=== PATIENT | female | born 1960 | race Hispanic/Latino ===

== ENCOUNTER 2021-01-21 07:26 | Day surgery (SDC) | payer OTHER ==
[2021-01-21] MEDS ORDERED: NA CHLORIDE 0.9% 1,000 ML ONE (08:01)
[2021-01-21 08:39] VITALS: BP 130/68; TEMP 97.1; O2SAT 100; BMI 25.6
== END 2021-01-21 12:15 | disposition home or self-care (01) ==
LOC: DS 07:26
PROVIDERS: ATTEND Family Medicine
DX: N17.9 Acute kidney failure, unspecified (principal)
CPT/HCPCS: 96365; 96366; J7030

== ENCOUNTER 2022-06-20 11:49 | Emergency (ER) | payer BC ==
[2022-06-20] MEDS ORDERED: ETOMIDATE 20 MG/10 ML VIAL IV ONE (11:50)
[2022-06-20] MEDS ORDERED: ROCURONIUM 50 MG/5 ML VIAL IV ONE (11:50)
--- OUTSIDE RECORDS SUMMARY | 2022-06-20 11:59 | XMS REPORT | Continuity of Care Document ---
:1960 Author Organization [facility] t Address [address] [place] [address] Care Team Providers Name Role Phone Greyson Mccormick MD Primary Care Physician [id number] Attending Clinician Unavailable TERRANCE DONOVAN Attending Clinician Unavailable Lynn Cash Attending Clinician Unavailable JORGE CHOWDHURY Attending Clinician Unavailable HERNANDO GONZALEZ Attending Clinician Unavailable DERRICK PEARL Attending Clinician Unavailable MD LOUISE GONGORA Attending Clinician Unavailable WEN MOREL Attending Clinician Unavailable MODESTA STERN Attending Clinician Unavailable MAR ALEMAN Attending Clinician Unavailable LUIS ALFREDO PATEL Attending Clinician Unavailable MD DULCE ROLDAN Attending Clinician Unavailable LUIS WEBSTER Attending Clinician Unavailable JACINTO PATEL Attending Clinician Unavailable Garfield Marquez RN Attending Clinician Unavailable Kandace Mccauley MD Attending Clinician Sherly NELSON, Nae Attending Clinician Unavailable Michelle NELSON, Kerry Attending Clinician Unavailable Lor Bailon Attending Clinician Unavailable Tosin Love RN Attending Clinician Unavailable Kathrine Potter Attending Clinician Unavailable MD LUIS ALFREDO PATEL Attending Clinician Unavailable MD MARIBEL SAGASTUME Attending Clinician Unavailable Maribel Sagastume MD Attending Clinician Nuha VENEGAS, Kaela Merritt Attending Clinician UnavailEzequiel Kiran DO Attending Clinician Rosario Macias MA Attending Clinician Unavailable Liya Gabriel MA Attending Clinician Unavailable Terrance Donovan MD Attending Clinician Only, Adc Test Attending Clinician Unavailable Doctor Unassigned, [place] Attending Clinician Unavailable David BRASWELL, Provider Not In Attending Clinician Unavailable MD DULCE ROLDAN Attending Clinician Unavailable Gary Baron MD Attending Clinician Hernan NELSON, Kayleigh Attending Clinician Unavailable Pob, Adc Lab Main Attending Clinician Unavailable Rayna Beaulieu Attending Clinician Unavailable Naldo Randolph RPH Attending Clinician Unavailable Snehal Brower Attending Clinician Unavailable Hilda Mcmillan Attending Clinician Unavailable Cash RP, Tuyet Attending Clinician Unavailable Praveen STARKS, Aileen Dooley Attending Clinician Unavailable Yariel NELSON, Theresa Attending Clinician Unavailable Missy Vann Attending Clinician Unavailable Tanya Aguilar MD Attending Clinician Barbi Glass RN Attending Clinician Unavailable Lenoela Marte MA Attending Clinician Unavailable Addison Real MD Attending Clinician [phone] Serena Martinez MA Attending Clinician Unavailable Paula Mccarty MD Attending Clinician HANNAH PARMAR Attending Clinician Unavailable MD JORGE CHOWDHURY Attending Clinician Unavailable YADIRA CHANEL Attending Clinician Unavailable Therapist, Adc Pulmonary Attending Clinician Unavailable [id number] Admitting Clinician Unavailable TERRANCE DONOVAN Admitting Clinician Unavailable LOUISE GONGORA Admitting Clinician Unavailable LUIS ALFREDO PATEL Admitting Clinician Unavailable MD DULCE ROLDAN Admitting Clinician Unavailable JACINTO PATEL Admitting Clinician Unavailable MD LUIS ALFREDO PATEL Admitting Clinician Unavailable MD MARIBEL SAGASTUME Admitting Clinician Unavailable MARIBEL SAGASTUME Admitting Clinician Unavailable Terrance Donovan MD Admitting Clinician MD DULCE ROLDAN Admitting Clinician Unavailable HANNAH PARMAR Admitting Clinician Unavailable JORGE CHOWDHURY Admitting Clinician Unavailable Payers Payer Name Policy Type Policy Number Effective Date Expiration Date S sara FORMERLY [facility] [id number] BLUE ESSENTIALS O [id number] 2020 00:00:00 [employer]ETNA TRS CARE [id number] 2014 00:00:00 Problems Condition Condition Condition Status Onset Resolution Last Treating Co mments Source Name Details Category Date Date Treatment Clinician Date Acute Acute Disease Active Methodi pancreatit pancreatit 05-23 is is 00:00: Hospita 00 l Acute Acute Disease Active Methodi hyponatrem hyponatrem 05-11 ia ia 00:00: Hospita 00 l Hypogammag Hypogammag Disease Active 2020-05 M ethodi lobulinemi lobulinemi 005 st a a 00:00: Hospita 00 l COVID-19 COVID-19 Disease Active Metho di 8 st 00:00: Hospita 00 l CAITLIN CAITLIN Disease Active Methodi (obstructi (obstructi 06-26 st ve sleep ve sleep 00:00: Hospit a apnea) apnea) 00 l SOB SOB Disease Active Methodi (shortness (shortness 2-10 st of breath) of breath) 00:00: Ho spita on on 00 l exertion exertion COVID-19 COVID-19 Disease Active Metho di virus virus 2 st infection infection 00:00: Hosp krystian 00 l 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): ovirus): 00:00: Hospit a D+ / R+ D+ / R+ 00 l EBV EBV Disease Recurre 2018-05 Methodi seropositi seropositi nce 06-07 vity: vity: 00:00: Hospita D+/R+ D+/R+ 00 l Therapeuti Therapeuti Disease Recurre 2018-05 Methodi c drug c drug nce 2 st monitoring monitoring 00:00: Ho spita 00 l Thrombocyt Thrombocyt Disease Active 2018-05 M ethodi openia due openia due 17 st to blood to blood 00:00: Hospit a loss loss 00 l Steroid-in Steroid-in Disease Active 2018-05 M ethodi duced duced 1-17 st hyperglyce hyperglyce 00:00: Ho christianta dez dez 00 l Vitamin D Vitamin D Disease Active 2018-05 Met hodi deficiency deficiency 17 st 00:00: Hospita 00 l Bilateral Bilateral Disease Recurre 2018-05 Me thodi Lung Lung nce 1-16 st Transplant Transplant 00:00: Ho spita 03/17/2019 03/17/2019 00 l for IPF for IPF Hepatic Hepatic Disease Active 2018-05 Methodi insufficie insufficie -16 st ncy ncy 00:00: Hospita 00 l IPF IPF Disease Active Univers (idiopathi (idiopathi 6-13 it y of c c 00:00: [place] pulmonary pulmonary 00 Medi fuentes fibrosis) fibrosis) Bran ch HLD HLD Disease Active Univers (hyperlipi (hyperlipi 6-13 it y of demia) demia) 00:00: [place] 00 Medical Branch Hypoxemia Hypoxemia Disease Active Uni vers 6-13 ity of 00:00: [place] 00 Medical Branch GERD GERD Disease Active Univers (gastroeso (gastroeso 6-13 it y of phageal phageal 00:00: [place] reflux reflux 00 Medical disease) disease) Branch Chronic Chronic Disease Active Univers respirator respirator 6-13 it y of y failure y failure 00:[place] with 00 Medical hypoxia hypoxia Branch Depression Depression Disease Active M ethodi 6-13 st 00:00: Hospita 00 l Chronic Chronic Disease Recurre Method i respirator respirator nce 2-20 st y failure y failure 00:00: Hosp krystian with with 00 l hypoxia hypoxia 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 2-20 st sis sis 00:00: Hospita 00 l MDD (major MDD (major Disease Active 2017-05 M ethodi depressive depressive [address] st disorder), disorder), 00:00: Ho sheila single single 00 l episode, episode, in full in full remission remission GERD GERD Disease Active 2017-05 Methodi (gastroeso (gastroeso 0-15 st phageal phageal 00:00: Hospita reflux reflux 00 l disease) disease) SOB SOB Disease Active 2017-05 Methodi (shortness (shortness 0-15 st of breath) of breath) 00:00: Ho spita 00 l Mixed Mixed Disease Active 2017-05 Methodi hyperlipid hyperlipid 0-15 st emia emia 00:00: Hospita 00 l 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 00:00: Hospit a 00 l Allergies, Adverse Reactions, Alerts Allergy Allergy Status Severity Reaction(s) Onset Inactive Treating Comm ents Source Name Type Date Date Clinician Penicill DA [facility] 00 Sulfa DA Active U Redness of 2021-05 [facility] (Sulfona Skin 2-20 mide 00:00: Antibiot 00 ics) voricona DA Active U Unknown 2021-05 [facility] zole 220 00:00: 00 SULFA Drug Active Med Rash 2020-0 Univers (SULFONA Class 3-13 ity of MIDE 00:00: [place] ANTIBIOT 00 Medical ICS) Branch Sulfa Drug Active Rash 2020-0 Univers (Sulfona Allergy 3-13 ity of mide 00:00: [place] Antibiot 00 Medical ics) Branch Voricona Propensi Active Other (See 2018-05 Elevated Methodi zole ty to Comments) 0-[address] adverse 00:00: Enzymes Hospita reaction 00 l s to drug PENICILL DRUG Active Med Hives 2018- Univers IN INGREDI 6-13 ity of 00:00: [place] 00 Medical Branch Penicill Propensi Active Hives Univer s in ty to 6-13 ity of adverse 00:00: [place] reaction 00 Medical s Branch Penicill Propensi Active Hives "Long Method i ins ty to 01-25 time ago" st adverse 00:00: per Hospita reaction 00 l s : drug Patient described reaction as "rash all over" Sulfa Propensi Active Hives 02/27/19: Metho di (Sulfona ty to 01-[address] mide adverse 00:00: described Hospit a Antibiot reaction 00 reaction l ics) s to as "rash drug all over" Family History Family Member Diagnosis Comments Start Date Stop Date Source Natural father Cerebral aneurysm Met [facility] Maternal aunt Breast cancer [facility] Maternal aunt Lung cancer [facility] Natural mother Diabetes [facility] Natural mother Lung disease [facility] Natural sister Pancreatic cancer Met [facility] Social History Social Habit Start Date Stop Date Quantity Comments Source Exposure to Not sure University of SARS-CoV-2 [place] [facility] (event) Branch History SDOH Yarsanism Alcohol Std Hospital Drinks History SDOH Yarsanism Alcohol Binge Hospital History SDTX Yarsanism Alcohol Comment Hospital Alcohol intake 2021-05-28 2021-05-28 Current Yarsanism 00:00:00 00:00:00 non-drinker of Hospital alcohol (finding) History SDOH 2020-06-07 2020-06-07 1 Yarsanism Alcohol Frequency 00:00:00 00:00:00 Hospita l Tobacco use and 2018-01-25 2018-01-25 Smokeless tobacco Me thodist exposure 00:00:00 00:00:00 non-user Hospital Sex Assigned At [birth year] [facility] Fatoumata gresham 00:00:00 [facility]:00 [facility] Smoking Status Start Date Stop Date Source Never smoked tobacco Yarsanism H ospital Medications Ordered Filled Start Stop Current Ordering Indication Dosage Frequency Signature Comments Components Source Medication Medication Date Date Medication? Clinician (SIG) Name Name mycophenola 2022- No [id number] 180mg Q.5D Take 1 Methodi te 06-[address] (MYFORTIC) 00:00: 05:59 (180 mg [facility] [place] 180 MG EC 00 :00 total) by l tablet mouth 2 (two) times a day. tacrolimus 2022- No [id number] .5mg Q.5D Take 1 Methodi (PROGRAF) 06-[address] 0.5 MG 00:00: 05:59 (0.5 mg Hospita capsule 00 :00 total) by l mouth 2 (two) times a day. aspirin Yes 81mg QD Take 81 mg [facility] (ECOTRIN) 1-[address] 81 MG 17:31: daily. Hospita enteric 22 l coated tablet calcium Yes 1{tbl} Q.5D Take 1 Method i citrate-vit 1-[address] zabala D3 17:31: mouth 2 Hospita (CITRICAL+D 22 (two) l ) 315 times a mg-6.25 mcg day. (250 unit) per tablet cholecalcif 0 Yes 1{tbl} QD Take 1 Me thodi yvrose, 1-[address] vitamin D3, 17:31: mouth Hospi ta (Vitamin 22 daily. l D3) 125 mcg (5,000 unit) tablet magnesium Yes 2{tbl} Q.[id number] Take 2 Methodi chloride -[id number] 71.5 mg 17:31: 3D mouth 3 Hospita tablet,binu 22 (three) l yed release times a (DR/EC) day. ondansetron Yes 4mg Q8H Take 4 mg M ethodi ODT 1-[address] (ZOFRAN-ODT 17:31: every 8 [facility] [place] ) 4 MG 22 (eight) l disintegrat hours as ing tablet needed for nausea or vomiting. ipratropium Yes 500ug Q.5D Inhale 500 Methodi (ATROVENT) 1-[address] 0.02 % 17:31: (two) Hospita nebulizer 22 times a l solution day as needed. predniSONE 0 2021- No 10mg QD Take 1 [facility] (DELTASONE) 05-30-31 tablet (10 s t 10 mg 00:00: 04:59 mg total) Hospit a tablet 00 :00 by mouth l daily for 60 days. potassium 0 2021- No 20meq QD Take 2 [facility] chloride 05-29- capsules st (MICRO-K) 00:00: 05:59 (20 mEq Hosp k[facility] 10 MEQ CR 00 :00 total) by l capsule mouth daily for 30 days. HYDROcodone 2021-0 2021- [place] [id number] 1{tbl} Q6H Take 1 Methodi -acetaminop 05-[address] hen ([place]) 00:00: 05:59 mouth Hosp krystian 5-325 mg 00 :00 every 6 l per tablet (six) hours as needed for moderate pain for up to 10 days .acute pain. Max Daily Amount: 4 tablets tacrolimus 2021- No [id number] .5mg QD Take 1 Methodi (PROGRAF) 05-[address] 0.5 MG 00:00: 00:00 (0.5 mg Hospita capsule 00 :00 total) by l mouth daily. mycophenola 2021- No [id number] 180mg Q.5D Take 1 Methodi te 05-[address] (MYFORTIC) 00:00: 00:00 (180 mg [facility] [place] 180 MG EC 00 :00 total) by l tablet mouth 2 (two) times a day. hydrocortis 2021- No 20mg QD Take 1 Met hodi one 05-16 tablet (20 st (CORTEF) 20 00:00: 00:00 mg total) Hospita MG tablet 00 :00 by mouth l daily for 30 days. atovaquone 2022- No 1500mg QD Take 10 mL Methodi (MEPRON) 05-15 (1,[address] 750 mg/5 mL 00:00: 05:59 total) by Hospita suspension 00 :00 mouth l nightly. bisacodyL 2021- No 10mg Q24H Insert 1 Met hodi (DULCOLAX) 05-[address] 10 mg 00:00: 05:59 y (10 mg Hospita suppository 00 :00 total) l into the rectum daily as needed for constipati on for up to 30 days. polyethylen 2021- No 17g QD Take 17 g Methodi e glycol 05-[address] (MIRALAX) 00:00: 05:59 daily for Ho spita 17 gram 00 :00 30 days. l packet sennosides- 2021- No 1{tbl} Q.5D Take 1 M ethodi docusate 05-[address] sodium 00:00: 05:59 mouth 2 Hospita (SENOKOT-S) 00 :00 (two) l 8.6-50 mg times a per tablet day for 30 days. sodium 2021- No 1300mg Q.5D Take 2 Method i bicarbonate 1-14 02-[address] 650 mg 00:00: 05:59 (1,300 mg Hospi ta tablet 00 :00 total) by l mouth 2 (two) times a day for 30 days. hydrocortis No 10mg QD Take 1 Met hodi one 05-15 tablet (10 st (CORTEF) 10 00:00: 00:00 mg total) Hospita MG tablet 00 :00 by mouth l nightly for 30 days. metoclopram No 5mg Q.5D Take 1 Met hodi mahin 05-15 tablet (5 st (Reglan) 5 00:00: 00:00 mg total) H ospita MG tablet 00 :00 by mouth 2 l (two) times a day before meals. tacrolimus No [id number] .5mg Q.5D Take 1 Methodi (PROGRAF) 05-[address] 0.5 MG 00:00: 00:00 (0.5 mg Hospita capsule 00 :00 total) by l mouth 2 (two) times a day. tacrolimus No [id number] .5mg QD Take 1 Methodi (PROGRAF) 05-[address] 0.5 MG 00:00: 00:00 (0.5 mg Hospita capsule 00 :00 total) by l mouth daily for 30 days. doxycycline 2020-05- No [id number] 100mg Q.5D Take 1 Methodi (MONODOX) 06-[address] 100 MG 00:00: 00:00 (100 mg Hospita capsule 00 :00 total) by l mouth 2 (two) times a day for 14 days. multivitami 2020-05- No 1{tbl} QD Take 1 M ethodi n with 06-[address] minerals 09:18: 00:00 mouth Hospita tablet 58 :00 daily. l gabapentin 2020-05- No 200mg Q.[id number] Take 200 Methodi (NEURONTIN) 06-[id number] 100 mg 09:18: 00:00 3D mouth 3 Hospita capsule 51 :00 (three) l times a day. multivitami 2020-05 Yes TAKE 1 [facility] n with 06-[address] minerals 00:00: MOUTH ONCE [facility] [place] tablet 00 DAILY l gabapentin 2020-05- No TAKE 2 [facility] (NEURONTIN) 06-07 12-[address] 100 mg 00:00: 00:00 BY MOUTH Hospit a capsule 00 :00 THREE l TIMES DAILY prednisoLON 2020-05 No Metho di E acetate 05-08 st (PRED 00:00: 00:00 Hospita FORTE) 1 % 00 :00 l ophthalmic suspension tacrolimus 2020-05- No [id number] Take 1 mg Methodi (Prograf) 05-[address] 0.5 MG 00:00: 00:00 morning Hospita capsule 00 :00 every l Tuesday, Tuesday, and Tuesday AND 0.5 mg in the morning every Tuesday, , Tuesday, and Tuesday. AND take 0.5 mg every evening azithromyci 2020-05 No 250mg Q.[id number] Take 250 Methodi n 05-[id number] (ZITHROMAX) 12:45: 00:00 3W mouth 3 Ho spita 250 MG 15 :00 (three) l tablet times a week. On Tuesday, Tuesday and Tuesday azithromyci 2020-05- No TAKE 1 Met hodi n 05-[address] (ZITHROMAX) 00:00: 00:00 MOUTH 3 Ho spita 250 MG 00 :00 TIMES A l tablet WEEK famotidine 2020-05- No 20mg Q.5D Take 20 mg Methodi (PEPCID) 20 0-28 28 by mouth 2 s t MG tablet 11:47: 00:00 (two) Hospit a 30 :00 times a l day. rosuvastati 2020-05- No 10mg QD Take 10 mg Methodi n (CRESTOR) 0-28 10-[address] 10 mg 11:47: 00:00 nightly. Hospita tablet 30 :00 l famotidine 2020-05 Yes TAKE 1 Metho di (PEPCID) 20 0-[address] MG tablet 00:00: MOUTH Hospita 00 TWICE l DAILY rosuvastati 2020-05- No Take 1 Met hodi n (CRESTOR) 0-28 01-14 tablet (10 s t 10 mg 00:00: 00:00 mg total) Hospit a tablet 00 :00 by mouth l nightly. sodium 2020-05 Yes CONTINUOUS Unive rs chloride 0-20 PRN, ity of (NS) 14:48: Starting [place] injection 00 on [facility] 02/18/21 Branch at 0948, Until Discontinu ed, Routine, Intra-op neomycin-po 2020-05 Yes PRN, Univer s lymyxin-dex 0-20 Starting ity of amethasone 14:48: on Tue [place] (MAXITROL) 00 02/18/21 Medic al 3.5 at 0948, Branch mg/g-10,000 Until unit/g-0.1 Discontinu % ed, ophthalmic Routine, ointment Intra-op dexamethaso 2020-05 Yes PRN, Univer s ne 0-20 Starting ity of (DECADRON 14:48: on Tue [place] PHOSPHATE) 00 02/18/21 Medic al injection at 0948, Branch Until Discontinu ed, Routine, Intra-op ceFAZolin 2020-05 Yes CONTINUOUS Un danilela (ANCEF) 0-20 PRN, ity of injection 14:48: [place] [facility] 02/18/21 Branch at 0948, Until Discontinu ed, SE, Intra-op sodium 2020-05- No CONTINUOUS Univ ers chloride 0-20 10-20 PRN, ity of (NS) 14:48: 17:24 Starting [place] injection 00 :33 on [facility] 02/18/21 Branch at 0948, Until Tue02/18/21 at 1224, Routine, Intra-op neomycin-po 2020-05- No PRN, Unive rs lymyxin-dex 0-20 10-20 Starting ity of amethasone 14:48: 17:24 on Tue [place] (MAXITROL) 00 :33 02/18/21 Medic al 3.5 at 0948, Branch mg/g-10,000 Until Tue unit/g-0.1 02/18/21 % at 1224, ophthalmic Routine, ointment Intra-op dexamethaso 2020-05- No PRN, Unive rs ne 0-20 10-20 Starting ity of (DECADRON 14:48: 17:24 on Tue [place] PHOSPHATE) 00 :33 02/18/21 Medic al injection at 0948, Branch Until Tue02/18/21 at 1224, Routine, Intra-op ceFAZolin 2020-05- No CONTINUOUS U nivers (ANCEF) 0-20 10-20 PRN, ity of injection 14:48: 17:24 Starting [place] as 00 :33 on [facility] Medical 02/18/21 Branch at 0948, Until Tue02/18/21 at 1224, SE, Intra-op eye block 2020-05 Yes PRN, Univers syringe 11 0-20 Starting ity o f mL 14:44: on Tue [place] 00 02/18/21 Medical at 0944, Branch Until Discontinu ed, Intra-op eye block 2020-05- No PRN, Univers syringe 11 0-20 10-20 Starting ity of mL 14:44: 17:24 on Wed [place] 00 :33 02/18/21 Medical at 0944, Branch Until Tue02/18/21 at 1224, Intra-op DUOVISC 2020-05 Yes PRN, Univers (DUOVISC 0-20 Starting ity of VISCO 14:42: on Tue [place] ELASTIC) 3 00 02/18/21 Medic al %-4 %(0.5 at 0942, Branch mL) 1 % Until (0.55 mL) Discontinu intraocular ed, injection Routine, Intra-op DUOVISC 2020-05- No PRN, Univers (DUOVISC 0-20 10-20 Starting ity of VISCO 14:42: 17:24 on Tue [place] ELASTIC) 3 00 :33 02/18/21 Medic al %-4 %(0.5 at 0942, Branch mL) 1 % Until Tue (0.55 mL) 02/18/21 intraocular at 1224, injection Routine, Intra-op carbachoL 2020-05 Yes PRN, Univers (MIOSTAT) 0-20 Starting ity of 0.01 % 14:41: on Wed [place] intraocular 00 02/18/21 Medi fuentes injection at 0941, Branch Until Discontinu ed, Routine, Intra-op carbachoL 2020-05- No PRN, Univers (MIOSTAT) 0-20 10-20 Starting ity o f 0.01 % 14:41: 17:24 on Tue [place] intraocular 00 :33 02/18/21 Medi fuentes injection at 0941, Branch Until Tue02/18/21 at 1224, Routine, Intra-op EPINEPHrine 2020-05 Yes CONTINUOUS Univers 1:1,000 (1 0-20 PRN, ity of mg/mL) 14:36: Starting (ADRENALIN) 00 on Tue Medica l injection 02/18/21 Branch at 0936, Until Discontinu ed, Routine, Intra-op balanced 2020-05 Yes PRN, Univers salt irrig 0-20 Starting ity o f soln comb1 14:36: on Tue [place] (BSS PLUS) 00 02/18/21 Medic al ophthalmic at 0936, Branc h solution Until 500 mL bag Discontinu ed, Routine, Intra-op EPINEPHrine 2020-05- No CONTINUOUS Univers 1:1,000 (1 0-20 10-20 PRN, ity of mg/mL) 14:36: 17:24 Starting [place] (ADRENALIN) 00 :33 on Tue Medica l injection 02/18/21 Branch at 0936, Until Tue02/18/21 at 1224, Routine, Intra-op balanced 2020-05- No PRN, Univers salt irrig 0-20 10-20 Starting ity of soln comb1 14:36: 17:24 on Tue [place] (BSS PLUS) 00 :33 02/18/21 Medic al ophthalmic at 0936, Branc h solution Until Wed 500 mL bag 02/18/21 at 1224, Routine, Intra-op water for 2020-05 Yes PRN, Univers irrigation 0-20 Starting ity o f irrigation 14:32: on Tue [place] solution 00 02/18/21 Medical at 0932, Branch Until Discontinu ed, Routine, Intra-op water for 2020-05- No PRN, Univers irrigation 0-20 10-20 Starting ity of irrigation 14:32: 17:24 on Tue [place] solution 00 :33 20 Medical at 0932, Branch Until Tue02/18/21 at 1224, Routine, Intra-op Hyaluronida 2020-05 Yes PRN, Univer s se, Human 0-20 Starting ity of Recomb. 14:29: on Wed [place] (HYLENEX) 00 02/18/21 Medica l injection at 0929, Branch Until Discontinu ed, Routine, Intra-op Hyaluronida 2020-05- No [facility] 0-20 10-20 Starting ity o f Recomb. 14:29: 17:24 on Tue (HYLENEX) 00 :33 02/18/21 Medica l injection at 0929, Branch Until Tue02/18/21 at 1224, Routine, Intra-op mydriatic 2020-05- No .5mL 0.5 mL, Univ ers #5 0-20 10-20 Right Eye, ity of ophthalmic 12:30: 12:47 ONCE, 1 [place] solution 00 :00 dose, On Medical 0.5 mL Wed Branch syringe 02/18/21 at 0730, Routine, DSU Pre-op lactated 2020-05- No 1000[facility] 0-20 10-20 mL/hr, ity of infusion 12:30: 12:47 1,000 mL, [facility] 1,000 mL 00 :00 IV Medical Infusion, Branch ONCE, 1 dose, On Tue02/18/21 at 0730, Routine, DSU Pre-op mydriatic 2020-05- No .5mL 0.5 mL, Univ ers #5 0-20 10-20 Right Eye, ity of ophthalmic 12:30: 12:47 ONCE, 1 [place] solution 00 :00 dose, On Medical 0.5 mL Wed Branch syringe 02/18/21 at 0730, Routine, DSU Pre-op lactated 2020-05- No 1000[facility] 42 [facility] 0-20 10-20 mL/hr, ity of infusion 12:30: 12:47 1,000 mL, [facility] 1,000 mL 00 :00 IV Medical Infusion, Branch ONCE, 1 dose, On Tue02/18/21 at 0730, Routine, DSU Pre-op metoclopram 2020-05 Yes 5mg Take 5 mg U nivers mahin HCl 5 0-20 by mouth 2 ity of mg tablet 10:19: (two) [place] 29 times Medical daily. Branch aspirin 81 2020-05 Yes 81mg Take 81 mg U nivers mg chewable 0-20 by mouth ity of tablet 10:19: daily. [place] 29 Medical Branch magnesium 2020-05 Yes 143{tbl Take 143 U nivers chloride 0-20 } tablets by ity o f 71.5 mg 10:19: mouth 3 [place] tablet 29 (three) Medical times Branch daily. Calcium 2020-05 Yes 1{tbl} Take 1 Univer s Citrate-Vit 0-20 tablet by ity of zabala D3 315 10:19: mouth 2 [place] [facility] mg- 250 29 (two) Medical unit Tab times Branch daily. famotidine 2020-05 Yes 20mg Take 20 mg U nivers (PEPCID) 20 0-20 by mouth 2 it y of mg tablet 10:19: (two) [place] 29 times Medical daily. Branch itraconazol 2020-05 Yes 1{capsu Take 1 U nivers e (TOLSURA) 0-20 le} capsule by it y of 65 mg CpSD 10:19: mouth [place] 29 daily. Medical Branch multivitami 2020-05 Yes 1{tbl} Take 1 Un daniella n with 0-20 tablet by ity of minerals 10:19: mouth [place] tablet 29 daily. Medical Branch predniSONE 2020-05 Yes 10mg Take 10 mg U nivers 10 mg 0-20 by mouth ity of tablet 10:19: daily. [place] [id number] Medical Branch rosuvastati 2020-05 Yes 10mg Take 10 mg Univers n (CRESTOR) 0-20 by mouth ity of 10 mg 10:19: at [place] tablet 29 bedtime. Medical Branch sennosides- 2020-05 Yes 1{tbl} Take 1 Un daniella docusate 0-20 tablet by ity of sodium 10:19: mouth 2 [place] 8.6-50 mg 29 (two) Medical Cap times Branch daily as needed for Constipati on. valGANciclo 2020-05 Yes 450mg Take 450 U nivers vir 0-20 mg by ity of (VALCYTE) 10:19: mouth 2 [place] 450 mg 29 (two) Medical tablet times Branch daily. albuterol 2020-05 Yes 2{puff} Inhale 2 U nivers 90 0-20 Puffs ity of mcg/actuati 10:19: every 6 [place] on inhaler 29 (six) Medical hours as Branch needed. benzonatate 2020-05 Yes 100mg Take 100 U nivers 100 mg 0-20 mg by ity of capsule 10:19: mouth as [place] 29 needed for Medical Cough. Branch FLUoxetine 2020-05 Yes 20mg Take 20 mg U nivers 20 mg 0-20 by mouth ity of capsule 10:19: daily. [place] [id number] Medical Branch Cholecalcif 2020-05 Yes 1{capsu Take 1 U nivers yvrose, 0-20 le} capsule by ity of Vitamin D3, 10:19: mouth [place] 2,000 unit 29 daily. Medical capsule Branch montelukast 2020-05 Yes 10mg Take 10 mg Univers 10 mg 0-20 by mouth ity of tablet 10:19: daily. [place] [address] Medical Branch tacrolimus 2020-05 Yes .5mg Take 0.5 Uni vers 0.5 mg 0-20 mg by ity of capsule 10:19: mouth [place] 29 every 12 Medical (twelve) Branch hours. ipratropium 2020-05 Yes .5mg Inhale 0.5 [facility] 0.02 % 0-20 mg 2 (two) ity of nebulizer 10:19: times [place] solution 29 daily. Medical Branch mycophenola 2020-05 Yes 720mg Take 720 U nivers te sodium 0-20 mg by ity of 180 mg EC 10:19: mouth [place] tablet 29 every 12 Medical (twelve) Branch hours. atovaquone 2020-05 Yes 1500mg Take 1,500 [facility] 750 mg/5 mL 0-20 mg by ity of suspension 10:19: mouth [place] 29 daily. Medical Branch azithromyci 2020-05 Yes 250mg Take 250 U nivers n 250 mg 0-20 mg by ity of tablet 10:19: mouth once [place] 29 now. Take Medical 250 mg tab Branch daily M-W-F. propranolol 2020-05 Yes 20mg Take 20 mg [facility] 20 mg 0-20 by mouth 2 ity of tablet 10:19: (two) [place] 29 times Medical daily. Branch metoclopram 2020-05 Yes 5mg Take 5 mg U nivers mahin HCl 5 0-20 by mouth 2 ity of mg tablet 10:19: (two) [place] 29 times Medical daily. Branch aspirin 81 2020-05 Yes 81mg Take 81 mg U nivers mg chewable 0-20 by mouth ity of tablet 10:19: daily. [place] [address] Medical Branch magnesium 2020-05 Yes 143{tbl Take 143 U nivers chloride 0-20 } tablets by ity o f 71.5 mg 10:19: mouth 3 [place] tablet 29 (three) Medical times Branch daily. Calcium 2020-05 Yes 1{tbl} Take 1 Univer s Citrate-Vit 0-20 tablet by ity of zabala D3 315 10:19: mouth 2 [place] mg- 250 29 (two) Medical unit Tab times Branch daily. famotidine 2020-05 Yes 20mg Take 20 mg U nivers (PEPCID) 20 0-20 by mouth 2 it y of mg tablet 10:19: (two) [place] 29 times Medical daily. Branch itraconazol 2020-05 Yes 1{capsu Take 1 U nivers e (TOLSURA) 0-20 le} capsule by it y of 65 mg CpSD 10:19: mouth [place] 29 daily. Medical Branch multivitami 2020-05 Yes 1{tbl} Take 1 Un daniella n with 0-20 tablet by ity of minerals 10:19: mouth [place] tablet 29 daily. Medical Branch predniSONE 2020-05 Yes 10mg Take 10 mg U nivers 10 mg 0-20 by mouth ity of tablet 10:19: daily. [place] [address] Medical Branch rosuvastati 2020-05 Yes 10mg Take 10 mg Univers n (CRESTOR) 0-20 by mouth ity of 10 mg 10:19: at [place] tablet 29 bedtime. Medical Branch sennosides- 2020-05 Yes 1{tbl} Take 1 Un daniella docusate 0-20 tablet by ity of sodium 10:19: mouth 2 [place] 8.6-50 mg 29 (two) Medical Cap times Branch daily as needed for Constipati on. valGANciclo 2020-05 Yes 450mg Take 450 U nivers vir 0-20 mg by ity of (VALCYTE) 10:19: mouth 2 [place] 450 mg 29 (two) Medical tablet times Branch daily. albuterol 2020-05 Yes 2{puff} Inhale 2 U nivers 90 0-20 Puffs ity of mcg/actuati 10:19: every 6 [place] on inhaler 29 (six) Medical hours as Branch needed. benzonatate 2020-05 Yes 100mg Take 100 U nivers 100 mg 0-20 mg by ity of capsule 10:19: mouth as [place] 29 needed for Medical Cough. Branch FLUoxetine 2020-05 Yes 20mg Take 20 mg U nivers 20 mg 0-20 by mouth ity of capsule 10:19: daily. [place] 29 Medical Branch Cholecalcif 2020-05 Yes 1{capsu Take 1 U nivers yvrose, 0-20 le} capsule by ity of Vitamin D3, 10:19: mouth [place] 2,000 unit 29 daily. Medical capsule Branch montelukast 2020-05 Yes 10mg Take 10 mg [facility] 10 mg 0-20 by mouth ity of tablet 10:19: daily. [place] 29 Medical Branch tacrolimus 2020-05 Yes .5mg Take 0.5 Uni vers 0.5 mg 0-20 mg by ity of capsule 10:19: mouth [place] 29 every 12 Medical (twelve) Branch hours. ipratropium 2020-05 Yes .5mg Inhale 0.5 [facility] 0.02 % 0-20 mg 2 (two) ity of nebulizer 10:19: times [place] solution 29 daily. Medical Branch mycophenola 2020-05 Yes 720mg Take 720 U nivers te sodium 0-20 mg by ity of 180 mg EC 10:19: mouth [place] tablet 29 every 12 Medical (twelve) Branch hours. atovaquone 2020-05 Yes 1500mg Take 1,500 [facility] 750 mg/5 mL 0-20 mg by ity of suspension 10:19: mouth [place] 29 daily. Medical Branch azithromyci 2020-05 Yes 250mg Take 250 U nivers n 250 mg 0-20 mg by ity of tablet 10:19: mouth once [place] 29 now. Take Medical 250 mg tab Branch daily M-W-. propranolol 2020-05 Yes 20mg Take 20 mg [facility] 20 mg 0-20 by mouth 2 ity of tablet 10:19: (two) [place] 29 times Medical daily. Branch tacrolimus 2020-05 202- No .75mg Take 0.75 [facility] 0.75 mg XR 0-20 10-20 mg by ity of tablet 09:53: 00:00 mouth [place] 21 :00 daily. Medical Branch tacrolimus 2020-05- No .75mg Take 0.75 [facility] 0.75 mg XR 0-20 10-20 mg by ity of tablet 09:53: 00:00 mouth [place] 21 :00 daily. Medical Branch mycophenola 2020-05- No [id number] 180mg Q.5D Take 1 [facility] 0-20 01-[address] (MYFORTIC) 00:00: 00:00 (180 mg [facility] [place] 180 MG EC 00 :00 total) by l tablet mouth 2 (two) times a day. tacrolimus 2020-05- No [id number] Take 2 [facility] (Prograf) 0-20 11-[address] 0.5 MG 00:00: 00:00 (1 mg [facility] capsule 00 :00 total) by l mouth every morning AND 1 capsule (0.5 mg total) every evening. albuterol 2020-05 Yes 2{puff} Inhale 2 U nivers 90 0-13 Puffs ity of mcg/actuati 16:32: every 6 [place] on inhaler 54 (six) Medical hours as Branch needed. benzonatate 2020-05 Yes 100mg Take 100 U nivers 100 mg 0-13 mg by ity of capsule 16:32: mouth as [place] 54 needed for Medical Cough. Branch FLUoxetine 2020-05 Yes 20mg Take 20 mg U nivers 20 mg 0-13 by mouth ity of capsule 16:32: daily. [place] [address] Medical Branch Cholecalcif 2020-05 Yes 1{capsu Take 1 U nivers yvrose, 0-13 le} capsule by ity of Vitamin D3, 16:32: mouth [place] 2,000 unit 54 daily. Medical capsule Branch montelukast 2020-05 Yes 10mg Take 10 mg [facility] 10 mg 0-13 by mouth ity of tablet 16:32: daily. [place] [address] Medical Branch tacrolimus 2020-05 Yes .75mg Take 0.75 U nivers 0.75 mg XR 0-13 mg by ity of tablet 16:32: mouth [place] 54 daily. Medical Branch tacrolimus 2020-05 Yes .5mg Take 0.5 Uni vers 0.5 mg 0-13 mg by ity of capsule 16:32: mouth [place] 54 every 12 Medical (twelve) Branch hours. ipratropium 2020-05 Yes .5mg Inhale 0.5 [facility] 0.02 % 0-13 mg 2 (two) ity of nebulizer 16:32: times [place] solution 54 daily. Medical Branch mycophenola 2020-05 Yes 720mg Take 720 U nivers te sodium 0-13 mg by ity of 180 mg EC 16:32: mouth [place] tablet 54 every 12 Medical (twelve) Branch hours. atovaquone 2020-05 Yes 1500mg Take 1,500 [facility] 750 mg/5 mL 0-13 mg by ity of suspension 16:32: mouth [place] 54 daily. Medical Branch azithromyci 2020-05 Yes 250mg Take 250 U nivers n 250 mg 0-13 mg by ity of tablet 16:32: mouth once [place] 54 now. Take Medical 250 mg tab Branch daily M--. propranolol 2020-05 Yes 20mg Take 20 mg [facility] 20 mg 0-13 by mouth 2 ity of tablet 16:32: (two) [place] 54 times Medical daily. Branch metoclopram 2020-05 Yes 5mg Take 5 mg U nivers mahin HCl 5 0-13 by mouth 2 ity of mg tablet 16:32: (two) [place] 54 times Medical daily. Branch aspirin 81 2020-05 Yes 81mg Take 81 mg U nivers mg chewable 0-13 by mouth ity of tablet 16:32: daily. [place] 54 Medical Branch magnesium 2020-05 Yes 143{tbl Take 143 U nivers chloride 0-13 } tablets by ity o f 71.5 mg 16:32: mouth 3 [place] tablet 54 (three) Medical times Branch daily. Calcium 2020-05 Yes 1{tbl} Take 1 Univer s Citrate-Vit 0-13 tablet by ity of zabala D3 315 16:32: mouth 2 [place] mg- 250 54 (two) Medical unit Tab times Branch daily. famotidine 2020-05 Yes 20mg Take 20 mg U nivers (PEPCID) 20 0-13 by mouth 2 it y of mg tablet 16:32: (two) [place] 54 times Medical daily. Branch itraconazol 2020-05 Yes 1{capsu Take 1 U nivers e (TOLSURA) 0-13 le} capsule by it y of 65 mg CpSD 16:32: mouth [place] 54 daily. Medical Branch multivitami 2020-05 Yes 1{tbl} Take 1 Un daniella n with 0-13 tablet by ity of minerals 16:32: mouth [place] tablet 54 daily. Medical Branch predniSONE 2020-05 Yes 10mg Take 10 mg U nivers 10 mg 0-13 by mouth ity of tablet 16:32: daily. [place] [address] Medical Branch rosuvastati 2020-05 Yes 10mg Take 10 mg Univers n (CRESTOR) 0-13 by mouth ity of 10 mg 16:32: at [place] tablet 54 bedtime. Medical Branch sennosides- 2020-05 Yes 1{tbl} Take 1 Un daniella docusate 0-13 tablet by ity of sodium 16:32: mouth 2 [place] 8.6-50 mg 54 (two) Medical Cap times Branch daily as needed for Constipati on. valGANciclo 2020-05 Yes 450mg Take 450 U nivers vir 0-13 mg by ity of (VALCYTE) 16:32: mouth 2 [place] 450 mg 54 (two) Medical tablet times Branch daily. albuterol 2020-05 Yes 2{puff} Inhale 2 U nivers 90 0-13 Puffs ity of mcg/actuati 16:32: every 6 [place] on inhaler 54 (six) Medical hours as Branch needed. benzonatate 2020-05 Yes 100mg Take 100 U nivers 100 mg 0-13 mg by ity of capsule 16:32: mouth as [place] 54 needed for Medical Cough. Branch FLUoxetine 2020-05 Yes 20mg Take 20 mg U nivers 20 mg 0-13 by mouth ity of capsule 16:32: daily. [place] [address] Medical Branch Cholecalcif 2020-05 Yes 1{capsu Take 1 U nivers yvrose, 0-13 le} capsule by ity of Vitamin D3, 16:32: mouth [place] 2,000 unit 54 daily. Medical capsule Branch montelukast 2020-05 Yes 10mg Take 10 mg [facility] 10 mg 0-13 by mouth ity of tablet 16:32: daily. [place] [address] Medical Branch tacrolimus 2020-05 Yes .75mg Take 0.75 U nivers 0.75 mg XR 0-13 mg by ity of tablet 16:32: mouth [place] 54 daily. Medical Branch tacrolimus 2020-05 Yes .5mg Take 0.5 Uni vers 0.5 mg 0-13 mg by ity of capsule 16:32: mouth [place] 54 every 12 Medical (twelve) Branch hours. ipratropium 2020-05 Yes .5mg Inhale 0.5 [facility] 0.02 % 0-13 mg 2 (two) ity of nebulizer 16:32: times [place] solution 54 daily. Medical Branch mycophenola 2020-05 Yes 720mg Take 720 U nivers te sodium 0-13 mg by ity of 180 mg EC 16:32: mouth [place] tablet 54 every 12 Medical (twelve) Branch hours. atovaquone 2020-05 Yes 1500mg Take 1,500 [facility] 750 mg/5 mL 0-13 mg by ity of suspension 16:32: mouth [place] 54 daily. Medical Branch azithromyci 2020-05 Yes 250mg Take 250 U nivers n 250 mg 0-13 mg by ity of tablet 16:32: mouth once [place] 54 now. Take Medical 250 mg tab Branch daily --. propranolol 2020-05 Yes 20mg Take 20 mg [facility] 20 mg 0-13 by mouth 2 ity of tablet 16:32: (two) [place] 54 times Medical daily. Branch metoclopram 2020-05 Yes 5mg Take 5 mg U nivers mahin HCl 5 0-13 by mouth 2 ity of mg tablet 16:32: (two) [place] 54 times Medical daily. Branch aspirin 81 2020-05 Yes 81mg Take 81 mg U nivers mg chewable 0-13 by mouth ity of tablet 16:32: daily. [place] 54 Medical Branch magnesium 2020-05 Yes 143{tbl Take 143 U nivers chloride 0-13 } tablets by ity o f 71.5 mg 16:32: mouth 3 [place] tablet 54 (three) Medical times Branch daily. Calcium 2020-05 Yes 1{tbl} Take 1 Univer s Citrate-Vit 0-13 tablet by ity of zabala D3 315 16:32: mouth 2 [place] [facility] mg- 250 54 (two) Medical unit Tab times Branch daily. famotidine 2020-05 Yes 20mg Take 20 mg U nivers (PEPCID) 20 0-13 by mouth 2 it y of mg tablet 16:32: (two) [place] 54 times Medical daily. Branch itraconazol 2020-05 Yes 1{capsu Take 1 U nivers e (TOLSURA) 0-13 le} capsule by it y of 65 mg CpSD 16:32: mouth [place] 54 daily. Medical Branch multivitami 2020-05 Yes 1{tbl} Take 1 Un daniella n with 0-13 tablet by ity of minerals 16:32: mouth [place] tablet 54 daily. Medical Branch predniSONE 2020-05 Yes 10mg Take 10 mg U nivers 10 mg 0-13 by mouth ity of tablet 16:32: daily. [place] 54 Medical Branch rosuvastati 2020-05 Yes 10mg Take 10 mg Univers n (CRESTOR) 0-13 by mouth ity of 10 mg 16:32: at [place] tablet 54 bedtime. Medical Branch sennosides- 2020-05 Yes 1{tbl} Take 1 Un daniella docusate 0-13 tablet by ity of sodium 16:32: mouth 2 [place] 8.6-50 mg 54 (two) Medical Cap times Branch daily as needed for Constipati on. valGANciclo 2020-05 Yes 450mg Take 450 U nivers vir 0-13 mg by ity of (VALCYTE) 16:32: mouth 2 [place] 450 mg 54 (two) Medical tablet times Branch daily. FLUoxetine 2020-05- No 20mg QD Take 20 mg [facility] (PROzac) 20 0-05 10-[address] MG capsule 13:54: 00:00 daily. [facility] :00 l metoclopram 2020-05- No 5mg Take 5 mg [facility] mahin 0-05 10-[address] (REGLAN) 5 12:36: 00:00 Hospit a MG tablet 53 :00 l sennosides- 2020-05- No 1{tbl} Take 1 M ethodi docusate 0-05 10-[address] sodium 12:36: 00:00 mouth. [facility]osp[facility] 8.6-50 mg 36 :00 l capsule itraconazol 2020-05- No [id number] 100mg Q.5D Take 1 [facility] e 0-05 10-[address] (Sporanox) 00:00: 04:59 (100 mg [facility] [place] 100 mg 00 :00 total) by l capsule mouth 2 (two) times a day. ferrous 2020-05- No [id number] 325mg Q.5D Take 1 Me thodi sulfate 325 0-05 10-[address] (65 FE) MG 00:00: 04:59 (325 mg [facility] [place] EC tablet 00 :00 total) by l mouth 2 (two) times a day with meals. FLUoxetine 2020-05- No 40mg QD Take 2 [facility] (PROzac) 20 0-05 10-[address] MG capsule 00:00: 04:59 (40 mg [facility] 00 :00 total) by l mouth daily. tacrolimus 2020-05- No [id number] .5mg Q.5D Take 1 [facility] (Prograf) 0-05 10-[address] 0.5 MG 00:00: 00:00 (0.5 mg [facility]osp[facility] capsule 00 :00 total) by l mouth 2 (two) times a day. tacrolimus 2020-05 No [id number] .5mg Q.5D Take 1 [facility] (Prograf) 0-05 10-[address] 0.5 MG 00:00: 00:00 (0.5 mg [facility]osp[facility] capsule 00 :00 total) by l mouth 2 (two) times a day. ceFAZolin Yes PRN, Univers (ANCEF) 01-28 Starting ity of injection 17:15: on Tue 00 01/28/21 at [place] [id number], Branch Until Discontinu ed, SE, Intra-op ceFAZolin 2020- No PRN, Univers (ANCEF) 01-28 Starting ity of injection 17:15: 19:52 on Tue [place] 00 :43 01/28/21 at [facility] 1215, Branch Until Tue01/28/21 at 1452, SE, Intra-op water for Yes PRN, Univers irrigation 01-28 Starting ity o f irrigation 15:52: on Tue [place] solution 00 01/28/21 at [facility] 1052, Branch Until Discontinu ed, Routine, Intra-op water for 2020- No PRN, Univers irrigation 01-28 Starting ity of irrigation 15:52: 19:52 on Tue [place] solution 00 :43 01/28/21 at [facility] 1052, Branch Until Tue01/28/21 at 1452, Routine, Intra-op sodium Yes PRN, Univers chloride 01-28 Starting ity of (NS) 15:51: on Tue [place] injection 00 01/28/21 at [facility] 1051, Branch Until Discontinu ed, Routine, Intra-op neomycin-po 2021-0 Yes PRN, Univer s lymyxin-dex 01-28 Starting ity of amethasone 15:51: on Tue [place] (MAXITROL) 00 01/28/21 at [facility] ical 3.5 1051, Branch mg/g-10,000 Until unit/g-0.1 Discontinu % ed, ophthalmic Routine, ointment Intra-op Hyaluronida Yes PRN, Univer s se, Human 01-28 Starting ity of Recomb. 15:51: on Tue (HYLENEX) 00 01/28/21 at [facility] injection 1051, Branch Until Discontinu ed, Routine, Intra-op sodium 2020- No PRN, Univers chloride 01-28 Starting ity of (NS) 15:51: 19:52 on Tue [place] injection 00 :43 01/28/21 at [facility] 1051, Branch Until Tue01/28/21 at 1452, Routine, Intra-op neomycin-po 2020- No PRN, Unive rs lymyxin-dex 01-28 Starting ity of amethasone 15:51: 19:52 [place] Tue [place] (MAXITROL) 00 :43 01/28/21 at [facility] ical 3.5 1051, Branch mg/g-10,000 Until Tue unit/g-0.1 01/28/21 at % 1452, ophthalmic Routine, ointment Intra-op Hyaluronida 2020- No PRN, Unive rs se, Human 01-28 Starting ity o f Recomb. 15:51: 19:52 on Tue (HYLENEX) 00 :43 01/28/21 at [facility] injection 1051, Branch Until Tue01/28/21 at 1452, Routine, Intra-op eye block Yes PRN, Univers syringe 11 01-28 Starting ity o f mL 15:50: on Tue01/28/21 at [facility] 1050, Branch Until Discontinu ed, Intra-op EPINEPHrine Yes PRN, Univer s 1:1,000 (1 01-28 Starting ity o f mg/mL) 15:50: on Tue (ADRENALIN) 00 01/28/21 at [place] injection 1050, Branch Until Discontinu ed, Routine, Intra-op eye block 2020- No PRN, Univers syringe 11 01-28 Starting ity of mL 15:50: 19:52 on Wed [place] 00 :43 01/28/21 at Medical 1050, Branch Until Tue01/28/21 at 1452, Intra-op EPINEPHrine 2020- No PRN, Unive rs 1:1,000 (1 01-28 Starting ity of mg/mL) 15:50: 19:52 on Wed [place] (ADRENALIN) 00 :43 01/28/21 at [place] d[facility] injection 1050, Branch Until Tue01/28/21 at 1452, Routine, Intra-op DUOVISC Yes PRN, Univers (DUOVISC 01-28 Starting ity of VISCO 15:49: on Tue [place] ELASTIC) 3 00 01/28/21 at [facility] ical %-4 %(0.5 1049, Branch mL) 1 % Until (0.55 mL) Discontinu intraocular ed, injection Routine, Intra-op dexamethaso Yes PRN, Univer s ne 01-28 Starting ity of (DECADRON 15:49: on Tue [place] PHOSPHATE) 00 01/28/21 at [facility] ical injection 1049, Branch Until Discontinu ed, Routine, Intra-op carbachoL Yes PRN, Univers (MIOSTAT) 01-28 Starting ity of 0.01 % 15:49: on Tue [place] intraocular 00 01/28/21 at [place] dical injection 1049, Branch Until Discontinu ed, Routine, Intra-op balanced Yes PRN, Univers salt irrig 01-28 Starting ity o f soln comb1 15:49: on Tue [place] (BSS PLUS) 00 01/28/21 at [facility] ical ophthalmic 1049, Branch solution Until 500 mL bag Discontinu ed, Routine, Intra-op DUOVISC 2020- No PRN, Univers (DUOVISC 01-28 Starting ity of VISCO 15:49: 19:52 on Tue [place] ELASTIC) 3 00 :43 01/28/21 at [facility] ical %-4 %(0.5 1049, Branch mL) 1 % Until Wed (0.55 mL) 01/28/21 at intraocular 1452, injection Routine, Intra-op dexamethaso 2020- No PRN, Unive rs ne 01-28 Starting ity of (DECADRON 15:49: 19:52 on Wed [place] PHOSPHATE) 00 :43 01/28/21 at [facility] ical injection 1049, Branch Until 01/28/21 at 1452, Routine, Intra-op carbachoL 2020- No PRN, Univers (MIOSTAT) 01-28 Starting ity o f 0.01 % 15:49: 19:52 on Wed [place] intraocular 00 :43 01/28/21 at [place] dical injection 1049, Branch Until Tue01/28/21 at 1452, Routine, Intra-op balanced 2020- No PRN, Univers salt irrig 01-28 Starting ity of soln comb1 15:49: 19:52 on Tue [place] (BSS PLUS) 00 :43 01/28/21 at [facility] ical ophthalmic 1049, Branch solution Until Tue 500 mL bag 01/28/21 at 1452, Routine, Intra-op mydriatic 2020- No .5mL 0.5 mL, Univ ers #5 01-28 Left Eye, ity of ophthalmic 15:15: 15:03 ONCE, 1 [place] solution 00 :00 dose, On Medical 0.5 mL Wed Branch syringe 01/28/21 at 1015, Routine, DSU Pre-op mydriatic 2020- No .5mL 0.5 mL, Univ ers #5 01-28 Left Eye, ity of ophthalmic 15:15: 15:03 ONCE, 1 [place] solution 00 :00 dose, On Medical 0.5 mL Wed Branch syringe 01/28/21 at 1015, Routine, DSU Pre-op lactated 2020- No 1000mL at 42 [facility] rs ringers IV 01-28 mL/hr, ity of infusion 15:00: 15:00 1,000 mL, [facility] as 1,000 mL 00 :00 IV Medical Infusion, Branch ONCE, 1 dose, On 01/28/21 at 1000, Routine, DSU Pre-op lactated 2020- No 1000mL at 42 Unive rs ringers IV 01-28 09-29 mL/hr, ity of infusion 15:00: 15:00 1,000 mL, [place] as 1,000 mL 00 :00 IV Medical Infusion, Branch ONCE, 1 dose, On Tue01/28/21 at 1000, Routine, DSU Pre-op albuterol Yes 2{puff} Inhale 2 U nivers 90 9-29 Puffs ity of mcg/actuati 12:47: every 6 [place] as on inhaler 40 (six) Medical hours as Branch needed. benzonatate Yes 100mg Take 100 U nivers 100 mg 9-29 mg by ity of capsule 12:47: mouth as [place] 40 needed for Medical Cough. Branch FLUoxetine Yes 20mg Take 20 mg U nivers 20 mg 9-29 by mouth ity of capsule 12:47: daily. [place] [address] Medical Branch Cholecalcif Yes 1{capsu Take 1 U nivers yvrose, 01-28 le} capsule by ity of Vitamin D3, 12:47: mouth [place] 2,000 unit 40 daily. Medical capsule Branch montelukast Yes 10mg Take 10 mg Univers 10 mg 9-29 by mouth ity of tablet 12:47: daily. [place] [address] Medical Branch tacrolimus Yes .75mg Take 0.75 U nivers 0.75 mg XR 9-29 mg by ity of tablet 12:47: mouth [place] 40 daily. Medical Branch tacrolimus Yes .5mg Take 0.5 Uni vers 0.5 mg 9-29 mg by ity of capsule 12:47: mouth [place] 40 every 12 Medical (twelve) Branch hours. ipratropium Yes .5mg Inhale 0.5 Univers 0.02 % 9-29 mg 2 (two) ity of nebulizer 12:47: times [place] solution 40 daily. Medical Branch mycophenola Yes 720mg Take 720 U nivers te sodium 9-29 mg by ity of 180 mg EC 12:47: mouth [place] tablet 40 every 12 Medical (twelve) Branch hours. atovaquone Yes 1500mg Take 1,500 [facility] 750 mg/5 mL 9-29 mg by ity of suspension 12:47: mouth [place] 40 daily. Medical Branch azithromyci Yes 250mg Take 250 U nivers n 250 mg 9-29 mg by ity of tablet 12:47: mouth once [place] 40 now. Take Medical 250 mg tab Branch daily --. propranolol Yes 20mg Take 20 mg [facility] 20 mg 9-29 by mouth 2 ity of tablet 12:47: (two) [place] 40 times Medical daily. Branch metoclopram Yes 5mg Take 5 mg U nivers mahin HCl 5 9- by mouth 2 ity of mg tablet 12:47: (two) [place] 40 times Medical daily. Branch aspirin 81 Yes 81mg Take 81 mg U nivers mg chewable 9-29 by mouth ity of tablet 12:47: daily. [place] 40 Medical Branch magnesium Yes 143{tbl Take 143 U nivers chloride 9-29 } tablets by ity o f 71.5 mg 12:47: mouth 3 [place] tablet 40 (three) Medical times Branch daily. Calcium Yes 1{tbl} Take 1 Univer s Citrate-Vit 9-29 tablet by ity of zabala D3 315 12:47: mouth 2 [place] as mg- 250 40 (two) Medical unit Tab times Branch daily. famotidine Yes 20mg Take 20 mg U nivers (PEPCID) 20 9- by mouth 2 it y of mg tablet 12:47: (two) [place] 40 times Medical daily. Branch itraconazol Yes 1{capsu Take 1 U nivers e (TOLSURA) 9-29 le} capsule by it y of 65 mg CpSD 12:47: mouth [place] 40 daily. Medical Branch multivitami Yes 1{tbl} Take 1 Un daniella n with 9-29 tablet by ity of minerals 12:47: mouth [place] tablet 40 daily. Medical Branch predniSONE Yes 10mg Take 10 mg U nivers 10 mg 9-29 by mouth ity of tablet 12:47: daily. [place] 40 Medical Branch rosuvastati 0 Yes 10mg Take 10 mg Univers n (CRESTOR) 9-29 by mouth ity of 10 mg 12:47: at [place] tablet 40 bedtime. Medical Branch sennosides- Yes 1{tbl} Take 1 Un daniella docusate 9-29 tablet by ity of sodium 12:47: mouth 2 [place] 8.6-50 mg 40 (two) Medical Cap times Branch daily as needed for Constipati on. valGANciclo Yes 450mg Take 450 U nivers vir 9-29 mg by ity of (VALCYTE) 12:47: mouth 2 [place] 450 mg 40 (two) Medical tablet times Branch daily. albuterol Yes 2{puff} Inhale 2 U nivers 90 9-29 Puffs ity of mcg/actuati 12:47: every 6 [place] as on inhaler 40 (six) Medical hours as Branch needed. benzonatate Yes 100mg Take 100 U nivers 100 mg 9-29 mg by ity of capsule 12:47: mouth as [place] 40 needed for Medical Cough. Branch FLUoxetine Yes 20mg Take 20 mg U nivers 20 mg 9-29 by mouth ity of capsule 12:47: daily. [place] 40 Medical Branch Cholecalcif Yes 1{capsu Take 1 U nivers yvrose, 9-29 le} capsule by ity of Vitamin D3, 12:47: mouth [place] 2,000 unit 40 daily. Medical capsule Branch montelukast Yes 10mg Take 10 mg Univers 10 mg 9-29 by mouth ity of tablet 12:47: daily. [place] 40 Medical Branch tacrolimus Yes .75mg Take 0.75 U nivers 0.75 mg XR 9-29 mg by ity of tablet 12:47: mouth [place] 40 daily. Medical Branch tacrolimus Yes .5mg Take 0.5 Uni vers 0.5 mg 9-29 mg by ity of capsule 12:47: mouth [place] 40 every 12 Medical (twelve) Branch hours. ipratropium Yes .5mg Inhale 0.5 Univers 0.02 % 9-29 mg 2 (two) ity of nebulizer 12:47: times [place] solution 40 daily. Medical Branch mycophenola Yes 720mg Take 720 U nivers te sodium 9-29 mg by ity of 180 mg EC 12:47: mouth [place] tablet 40 every 12 Medical (twelve) Branch hours. atovaquone Yes 1500mg Take 1,500 [facility] 750 mg/5 mL 9-29 mg by ity of suspension 12:47: mouth [place] 40 daily. Medical Branch azithromyci Yes 250mg Take 250 U nivers n 250 mg 9-29 mg by ity of tablet 12:47: mouth once [place] 40 now. Take Medical 250 mg tab Branch daily M-W-F. propranolol Yes 20mg Take 20 mg [facility] 20 mg 9-29 by mouth 2 ity of tablet 12:47: (two) [place] 40 times Medical daily. Branch metoclopram Yes 5mg Take 5 mg U nivers mahin HCl 5 9- by mouth 2 ity of mg tablet 12:47: (two) [place] 40 times Medical daily. Branch aspirin 81 Yes 81mg Take 81 mg U nivers mg chewable -29 by mouth ity of tablet 12:47: daily. [place] 40 Medical Branch magnesium Yes 143{tbl Take 143 U nivers chloride 9-29 } tablets by ity o f 71.5 mg 12:47: mouth 3 [place] tablet 40 (three) Medical times Branch daily. Calcium Yes 1{tbl} Take 1 Univer s Citrate-Vit 9-29 tablet by ity of zabala D3 315 12:47: mouth 2 [place] [facility] mg- 250 40 (two) Medical unit Tab times Branch daily. famotidine Yes 20mg Take 20 mg U nivers (PEPCID) 20 -29 by mouth 2 it y of mg tablet 12:47: (two) [place] 40 times Medical daily. Branch itraconazol Yes 1{capsu Take 1 U nivers e (TOLSURA) 9-29 le} capsule by it y of 65 mg CpSD 12:47: mouth [place] 40 daily. Medical Branch multivitami Yes 1{tbl} Take 1 Un daniella n with 9-29 tablet by ity of minerals 12:47: mouth [place] tablet 40 daily. Medical Branch predniSONE Yes 10mg Take 10 mg U nivers 10 mg 9-29 by mouth ity of tablet 12:47: daily. [place] 40 Medical Branch rosuvastati Yes 10mg Take 10 mg [facility] (CRESTOR) 9-29 by mouth ity of 10 mg 12:47: at [place] tablet 40 bedtime. Medical Branch sennosides- Yes 1{tbl} Take 1 [facility] docusate 9-29 tablet by ity of sodium 12:47: mouth 2 [place] 8.6-50 mg 40 (two) Medical Cap times Branch daily as needed for Constipati on. valGANciclo Yes 450mg Take 450 U nivers vir 9-29 mg by ity of (VALCYTE) 12:47: mouth 2 [place] 450 mg 40 (two) Medical tablet times Branch daily. albuterol Yes 2{puff} Inhale 2 U nivers 90 9-29 Puffs ity of mcg/actuati 12:47: every 6 [place] as on inhaler 40 (six) Medical hours as Branch needed. benzonatate Yes 100mg Take 100 U nivers 100 mg 9-29 mg by ity of capsule 12:47: mouth as [place] 40 needed for Medical Cough. Branch FLUoxetine Yes 20mg Take 20 mg U nivers 20 mg 9-29 by mouth ity of capsule 12:47: daily. [place] 40 Medical Branch Cholecalcif 0 Yes 1{capsu Take 1 U nivers yvrose, 9-29 le} capsule by ity of Vitamin D3, 12:47: mouth [place] 2,000 unit 40 daily. Medical capsule Branch montelukast 0 Yes 10mg Take 10 mg [facility] 10 mg 9-29 by mouth ity of tablet 12:47: daily. [place] 40 Medical Branch tacrolimus 0 Yes .75mg Take 0.75 U nivers 0.75 mg XR 9-29 mg by ity of tablet 12:47: mouth [place] 40 daily. Medical Branch tacrolimus 0 Yes .5mg Take 0.5 Uni vers 0.5 mg 9-29 mg by ity of capsule 12:47: mouth [place] 40 every 12 Medical (twelve) Branch hours. ipratropium Yes .5mg Inhale 0.5 [facility] 0.02 % 9-29 mg 2 (two) ity of nebulizer 12:47: times [place] solution 40 daily. Medical Branch mycophenola Yes 720mg Take 720 U nivers te sodium 9-29 mg by ity of 180 mg EC 12:47: mouth [place] tablet 40 every 12 Medical (twelve) Branch hours. atovaquone Yes 1500mg Take 1,500 [facility] 750 mg/5 mL 9-29 mg by ity of suspension 12:47: mouth [place] 40 daily. Medical Branch azithromyci Yes 250mg Take 250 U nivers n 250 mg 9-29 mg by ity of tablet 12:47: mouth once [place] 40 now. Take Medical 250 mg tab Branch daily --. propranolol Yes 20mg Take 20 mg [facility] 20 mg 9-29 by mouth 2 ity of tablet 12:47: (two) [place] 40 times Medical daily. Branch metoclopram Yes 5mg Take 5 mg U nivers mahin HCl 5 9-29 by mouth 2 ity of mg tablet 12:47: (two) [place] 40 times Medical daily. Branch aspirin 81 Yes 81mg Take 81 mg U nivers mg chewable 9-29 by mouth ity of tablet 12:47: daily. [place] 40 Medical Branch magnesium Yes 143{tbl Take 143 U nivers chloride 9-29 } tablets by ity o f 71.5 mg 12:47: mouth 3 [place] tablet 40 (three) Medical times Branch daily. Calcium Yes 1{tbl} Take 1 Univer s Citrate-Vit 9-29 tablet by ity of zabala D3 315 12:47: mouth 2 [facility] mg- 250 40 (two) Medical unit Tab times Branch daily. famotidine Yes 20mg Take 20 mg U nivers (PEPCID) 20 9-29 by mouth 2 it y of mg tablet 12:47: (two) [place] 40 times Medical daily. Branch itraconazol Yes 1{capsu Take 1 U nivers e (TOLSURA) 9-29 le} capsule by it y of 65 mg CpSD 12:47: mouth [place] 40 daily. Medical Branch multivitami Yes 1{tbl} Take 1 [facility]ella n with 9-29 tablet by ity of minerals 12:47: mouth [place] tablet 40 daily. Medical Branch predniSONE Yes 10mg Take 10 mg U nivers 10 mg 9-29 by mouth ity of tablet 12:47: daily. [place] 40 [facility] rosuvastati 2021-0 Yes 10mg Take 10 mg [facility] (CRESTOR) 9-29 by mouth ity of 10 mg 12:47: at [place] tablet 40 bedtime. Medical Branch sennosides- Yes 1{tbl} Take 1 [facility] docusate 9-29 tablet by ity of sodium 12:47: mouth 2 [place] 8.6-50 mg 40 (two) Medical Cap times Branch daily as needed for Constipati on. valGANciclo Yes 450mg Take 450 U nivers vir 9-29 mg by ity of (VALCYTE) 12:47: mouth 2 [place] 450 mg 40 (two) Medical tablet times Branch daily. metoclopram Yes 5mg Take 5 mg U nivers mahin HCl 5 9-28 by mouth 2 ity of mg tablet 10:13: (two) [place] 27 times Medical daily. Branch sennosides- Yes 1{tbl} Take 1 [facility] docusate 9-28 tablet by ity of sodium 10:13: mouth 2 [place] 8.6-50 mg 27 (two) Medical Cap times Branch daily as needed for Constipati on. benzonatate Yes 100mg Take 100 U nivers 100 mg 9-28 mg by ity of capsule 10:13: mouth as [place] 27 needed for Medical Cough. Branch metoclopram Yes 5mg Take 5 mg U nivers mahin HCl 5 9-28 by mouth 2 ity of mg tablet 10:13: (two) [place] 27 times Medical daily. Branch sennosides- Yes 1{tbl} Take 1 [facility] docusate 9-28 tablet by ity of sodium 10:13: mouth 2 [place] 8.6-50 mg 27 (two) Medical Cap times Branch daily as needed for Constipati on. benzonatate Yes 100mg Take 100 U nivers 100 mg 9-28 mg by ity of capsule 10:13: mouth as [place] 27 needed for Medical Cough. Branch Prolensa 2020- No [facility] 0.07 % 01-25 st ophthalmic 00:00: 00:00 Hospit a solution 00 :00 l ofloxacin 2020- No [facility] (OCUFLOX) 9-26 12-28 st 0.3 % 00:00: 00:00 [facility] ophthalmic 00 :00 l solution predniSONE 2021- No [id number] 5mg QD Take 1 [facility] (DELTASONE) 8-14 tablet (5 st 5 mg tablet 00:00: 00:00 mg total) [facility]ospita 00 :00 by mouth l daily. predniSONE 2020- No [id number] 2.5mg QD Take 1 [facility] (DELTASONE) 12-09 10-[address] 2.5 mg 00:00: 00:00 (2.5 mg [facility]osp[facility] tablet 00 :00 total) by l mouth daily. mycophenola 2020- No TAKE 2 Met [facility] te 8- 10-[address] (MYFORTIC) 00:00: 00:00 MOUTH IN Ho [facility] 180 MG EC 00 :00 THE l tablet MORNING AND TAKE 1 TABLET IN THE EVENING propranoloL 2020- No 40mg Q.5D Take 40 mg [facility] (INDERAL) 11-[address] 20 MG 13:29: 00:00 (two) [facility]osp[facility] tablet 10 :00 times a l day. propranoloL 2021- No [id number] 40mg Q.5D Take 2 [facility] (INDERAL) 11-07- tablets st 20 MG 00:00: 04:59 (40 mg [facility]ospita tablet 00 :00 total) by l mouth 2 (two) times a day. tacrolimus 2020- No [id number] 1mg Q.5D Take 1 [facility] (Prograf) 1 10-13-05 capsule (1 s t MG capsule 00:00: 00:00 mg total) H [facility] 00 :00 by mouth 2 l (two) times a day. tacrolimus 2020- No [id number] .5mg QD Take 1 [facility] (PROGRAF) 09-23-[address] 0.5 MG 00:00: 00:00 (0.5 mg [facility]ospita capsule 00 :00 total) by l mouth every evening. tacrolimus 2020- No [id number] 1mg QD Take 1 [facility] (Prograf) 1 09-16-14 capsule (1 s t MG capsule 00:00: 00:00 mg total) [facility] 00 :00 by mouth l every morning. tacrolimus 2020- No [id number] .5mg QD Take 1 [facility] (PROGRAF) 5-18 05-[address] 0.5 MG 00:00: 00:00 (0.5 mg [facility]osp[facility] capsule 00 :00 total) by l mouth every evening. montelukast 2020- No 10mg QD Take 10 mg [facility] (SINGULAIR) 4-15 04-[address] 10 mg 15:19: 00:00 nightly. [facility]ospita tablet 19 :00 l montelukast 2021- No [id number] 10mg QD Take 1 [facility] (SINGULAIR) 4-15 04-16 tablet (10 s t 10 mg 00:00: 04:59 mg total) Hospit a tablet 00 :00 by mouth l nightly. levoFLOXaci 2020- No [id number] 500mg QD Take 1 [facility] 4-15 04-[address] (Levaquin) 00:00: 04:59 (500 mg [facility] [place] 500 MG 00 :00 total) by l tablet mouth daily for 7 days. tacrolimus 2020- No [id number] .5mg Q.5D Take 1 [facility] (PROGRAF) 3-27 05-[address] 0.5 MG 00:00: 00:00 (0.5 mg [facility]osp[facility] capsule 00 :00 total) by l mouth 2 (two) times a day. itraconazol 2020- No [id number] 200mg Q.5D Take 2 [facility] 3-15 10-[address] (Sporanox) 00:00: 00:00 (200 mg [facility] [place] 100 mg 00 :00 total) by l capsule mouth 2 (two) times a day. lancets 2021- No [id number] Check [facility] (Fingerstix 07-[address] Lancets) 00:00: 05:59 sugar two [facility] [place] misc 00 :00 times l daily blood sugar 2021- No [id number] Use with [facility] diagnostic 07-[address] strips 00:00: 05:59 check [facility]ospita (Accu-Chek 00 :00 blood l Guide test sugar two strips) times strip test daily strips predniSONE 2020- No 10mg QD Take 1 [facility] (DELTASONE) 07-11-10 tablet (10 s t 10 mg 00:00: 00:00 mg total) Hospit a tablet 00 :00 by mouth l daily. itraconazol 2020- No [id number] 130mg QD Take 2 [facility] ([place]) 07-11-[address] 65 mg 00:00: 00:00 (130 mg [facility]ospita capsule, 00 :00 total) by l solid mouth dispersion daily. capsule filgrastim- 2020- No [id number] 300ug QD Inject 0.5 [facility] aafi 300 07-10-13 mL (300 st mcg/0.5 mL 00:00: 05:59 mcg total) [facility]ospita syringe 00 :00 under the l syringe skin daily for 1 day. itraconazol 2020- No 65mg QD Take 65 mg [facility] ([place]) 07-09-[address] 65 mg 10:56: 00:00 daily. [facility]ospita capsule, 36 :00 l solid dispersion capsule itraconazol 2020- No [id number] 65mg QD Take 1 [facility] ([place]) 07-[address] 65 mg 00:00: 00:00 (65 mg [facility]osp[facility] capsule, 00 :00 total) by l solid mouth dispersion daily. capsule valGANciclo 2021- No 450mg Q.[id number] Take 1 [facility] vir 06-[id number] (VALCYTE) 00:00: 00:00 3W (450 mg [facility] 450 mg 00 :00 total) by l tablet mouth 3 (three) times a week for 364 days. tacrolimus 2020- No [id number] .5mg Q.5D Take 1 [facility] (PROGRAF) 06-[address] 0.5 MG 00:00: 00:00 (0.5 mg [facility]osp[facility] capsule 00 :00 total) by l mouth 2 (two) times a day. atovaquone 2020- No 1500mg QD Take 1,500 [facility] (MEPRON) 2-18 02-[address] 750 mg/5 mL 15:30: 00:00 mouth [facility] suspension 56 :00 daily. l atovaquone No 1500mg QD Take 10 mL [facility] (MEPRON) 06-1914 (1,[address] 750 mg/5 mL 00:00: 00:00 total) by [facility]ospita suspension 00 :00 mouth l daily. mycophenola 2020- No 180mg Q.5D Take 1 [facility] 06-19-[address] (MYFORTIC) 00:00: 00:00 (180 mg [facility] [place] 180 MG EC 00 :00 total) by l tablet mouth 2 (two) times a day. amLODIPine No 10mg QD Take 1 [facility] (NORVASC) 06-13 tablet (10 st 10 mg 00:00: 00:00 mg total) Hospit a tablet 00 :00 by mouth l daily. valGANciclo No 450mg Q.[id number] Take 1 [facility] 06-[id number] (VALCYTE) 00:00: 00:00 3W (450 mg [facility] 450 mg 00 :00 total) by l tablet mouth 3 (three) times a week. mycophenola 2020- No 180mg QD Take 180 [facility] te -11 02-[address] (MYFORTIC) 18:42: 00:00 mouth [facility] 180 MG EC 24 :00 nightly. l tablet tacrolimus No 1mg QD Take 1 mg M [facility] (PROGRAF) 1 06-[address] MG capsule 18:42: 00:00 every [facility] 24 :00 morning. l mycophenola 2020- No 360mg QD Take 360 [facility] te 2-11 02-[address] (MYFORTIC) 16:08: 00:00 mouth [facility] 180 MG EC 31 :00 every l tablet morning. predniSONE No 5mg QD Take 5 mg M [facility] (DELTASONE) 06-[address] 5 mg tablet 15:05: 00:00 daily. [facility] [place] 28 :00 l valGANciclo 2020- No 450mg QD Take 450 [facility] vir 06-12 02-[address] (VALCYTE) 15:05: 00:00 mouth Hospit a 450 mg 28 :00 daily. l tablet tacrolimus No .5mg QD Take 0.5 [facility] (PROGRAF) 06-12-[address] 0.5 MG 15:01: 00:00 mouth [facility]osp[facility] capsule 00 :00 every l evening. Lactobacill 2020- No 1g Q.[id number] Take 1 [facility] us 06-12 [id number] packet (1 st acidoph-L.b 00:00: 00:00 3D g total) H [facility] ulgar 00 :00 by mouth 3 l (LACTINEX) (three) 100 million times a cell tablet day for 360 days. predniSONE 2020- No Take 30 mg [facility] (DELTASONE) 06-12 x 7 days, st 10 mg 00:00: 05:59 then 20 mg [facility] tablet 00 :00 x 7 days, l then resume 10 mg daily. tacrolimus No .5mg Q.5D Take 1 [facility] (PROGRAF) 06-[address] 0.5 MG 00:00: 00:00 (0.5 mg [facility]ospita capsule 00 :00 total) by l mouth 2 (two) times a day. valGANciclo 2020- No [id number] 450mg QD Take 1 [facility] vir 06-06- tablet st (VALCYTE) 00:00: 00:00 (450 mg [facility] 450 mg 00 :00 total) by l tablet mouth daily. colchicine 2020- No [id number] .6mg Q.5D Take 1 [facility] 0.6 mg 05-26- tablet st tablet 00:00: 00:00 (0.6 mg [facility]ospita 00 :00 total) by l mouth 2 (two) times a day for 14 days. tacrolimus 2020- No [id number] 1mg QD Take 1 [facility] (PROGRAF) 1 05-23- capsule (1 s t MG capsule 00:00: 00:00 mg total) [facility] 00 :00 by mouth l every morning. tacrolimus 2020- No [id number] .5mg QD Take 1 [facility] (PROGRAF) 05-[address] 0.5 MG 00:00: 00:00 (0.5 mg [facility]osp[facility] capsule 00 :00 total) by l mouth every evening. amphoterici 2019-05 No [id number] 50mg Q24H Inhale [facility] n B 06-[address] liposome in 00:00: 04:59 (50 mg [facility] [place] water for 00 :00 total) l injection, daily for sterile 180 days. inhalation suspension ondansetron 2019-05 No [id number] 4mg Q8H Take 1 [facility] ODT (Zofran 05-20 tablet (4 st ODT) 4 MG 00:00: 00:00 mg total) [facility] disintegrat 00 :00 by mouth l ing tablet every 8 (eight) hours as needed for nausea or vomiting. azithromyci 2019-05 No [id number] 250mg Q.[id number] Take 1 [facility] 05-[id number] (Zithromax) 00:00: 00:00 3W (250 mg [facility] 250 MG 00 :00 total) by l tablet mouth 3 (three) times a week. calcium 2019-05 1{tbl} Q.5D Take 1 [facility] citrate-vit 06-[address] [place] D3 00:00: 00:00 mouth 2 Hospit a (CITRICAL+D 00 :00 (two) l ) 315 mg- times a 250 unit day. per tablet multivitami 2019-05 No 1{tbl} QD Take 1 M [facility]i n with 06-[address] minerals 00:00: 00:00 mouth [facility]osp[facility] tablet 00 :00 daily. l cholecalcif 2019-05 No 5000U QD Take 1 [facility] yvrose, 006-[address] vitamin D3, 00:00: 00:00 (5,000 [facility] [place] 125 mcg 00 :00 Units l (5,000 total) by unit) mouth tablet daily. famotidine 2019-05 No 20mg Q.5D Take 1 [facility] (PEPCID) 20 06-08 tablet (20 s t MG tablet 00:00: 00:00 mg total) [facility] 00 :00 by mouth 2 l (two) times a day. rosuvastati 2019-05 10mg QD Take 1 [facility] n (CRESTOR) 06-08 tablet (10 s t 10 mg 00:00: 00:00 mg total) Hospit a tablet 00 :00 by mouth l nightly. gabapentin 2019-05 No [id number] 200mg Q.[id number] Take 2 [facility] (NEURONTIN) 06-[id number] 100 mg 00:00: 00:00 3D (200 mg [facility]ospita capsule 00 :00 total) by l mouth 3 (three) times a day. FLUoxetine 2019-05 No [id number] 20mg QD Take 1 [facility] (PROzac) 20 06-[address] MG capsule 00:00: 00:00 (20 mg [facility] 00 :00 total) by l mouth daily for 90 days. mycophenola No [id number] 360mg QD Take 2 [facility] te 12-[address] (Myfortic) 00:00: 00:00 (360 mg [facility] [place] 180 MG EC 00 :00 total) by l tablet mouth every morning. mycophenola No [id number] 180mg QD Take 1 [facility] te 12-[address] (Myfortic) 00:00: 00:00 (180 mg [facility] [place] 180 MG EC 00 :00 total) by l tablet mouth every evening. valGANciclo 450mg QD Take 1 [facility] 12-[address] (VALCYTE) 00:00: 00:00 (450 mg [facility] 450 mg 00 :00 total) by l tablet mouth daily. predniSONE No [id number] 5mg QD Take 1 [facility] (DELTASONE) 11-12 tablet (5 st 5 mg tablet 00:00: 00:00 mg total) [facility]ospita 00 :00 by mouth l daily. propranoloL 2020-0 2020- No [id number] 40mg Q.5D Take 2 [facility] (INDERAL) 6- 02-[address] 20 MG 00:00: 00:00 (40 mg [facility]osp[facility] tablet 00 :00 total) by l mouth 2 (two) times a day. montelukast 2020-0 Yes 10mg Take 10 mg [facility] 10 mg 5-26 by mouth ity of tablet 11:48: daily. [place] 50 Medical Branch tacrolimus 2020-0 Yes .75mg Take 0.75 U nivers 0.75 mg XR 5-26 mg by ity of tablet 11:48: mouth [place] 50 daily. Medical Branch tacrolimus 2020-0 Yes .5mg Take 0.5 Uni vers 0.5 mg 5-26 mg by ity of capsule 11:48: mouth [place] 50 every 12 Medical (twelve) Branch hours. ipratropium 2020-0 Yes .5mg Inhale 0.5 [facility] 0.02 % 5-26 mg 2 (two) ity of nebulizer 11:48: times [place] solution 50 daily. Medical Branch mycophenola 2020-0 Yes 720mg Take 720 U nivers te sodium 5-26 mg by ity of 180 mg EC 11:48: mouth [place] tablet 50 every 12 Medical (twelve) Branch hours. atovaquone 2020-0 Yes 1500mg Take 1,500 [facility] 750 mg/5 mL 5-26 mg by ity of suspension 11:48: mouth [place] 50 daily. Medical Branch azithromyci 2020-0 Yes 250mg Take 250 U nivers n 250 mg 5-26 mg by ity of tablet 11:48: mouth once [place] 50 now. Take Medical 250 mg tab Branch daily --. propranolol 2020-0 Yes 20mg Take 20 mg [facility] 20 mg 5-26 by mouth 2 ity of tablet 11:48: (two) [place] 50 times Medical daily. Branch aspirin 81 2020-0 Yes 81mg Take 81 mg U nivers mg chewable 5-26 by mouth ity of tablet 11:48: daily. [place] 50 Medical Branch magnesium 2020-0 Yes 143{tbl Take 143 U nivers chloride 5-26 } tablets by ity o f 71.5 mg 11:48: mouth 3 [place] tablet 50 (three) Medical times Branch daily. Calcium 2020-0 Yes 1{tbl} Take 1 Un[facility] s Citrate-Vit 5-26 tablet by ity of zabala D3 315 11:48: mouth 2 [place] [facility] mg- 250 50 (two) Medical unit Tab times Branch daily. famotidine 2020-0 Yes 20mg Take 20 mg U nivers (PEPCID) 20 5-26 by mouth 2 it y of mg tablet 11:48: (two) [place] 50 times Medical daily. Branch itraconazol 2020-0 Yes 1{capsu Take 1 U nivers e (TOLSURA) 5-26 le} capsule by it y of 65 mg CpSD 11:48: mouth [place] 50 daily. Medical Branch multivitami 2020-0 Yes 1{tbl} Take 1 Un daniella n with 5-26 tablet by ity of minerals 11:48: mouth [place] tablet 50 daily. Medical Branch predniSONE 2019-0 Yes 10mg Take 10 mg U [facility]ivers 10 mg 5-26 by mouth ity of tablet 11:48: daily. [place] 50 Medical Branch rosuvastati 2020-0 Yes 10mg Take 10 mg [facility] (CRESTOR) 5-26 by mouth ity of 10 mg 11:48: at [place] tablet 50 bedtime. Medical Branch valGANciclo 2020-0 Yes 450mg Take 450 U nivers vir 5-26 mg by ity of (VALCYTE) 11:48: mouth 2 [place] 450 mg 50 (two) Medical tablet times Branch daily. montelukast 2020-0 Yes 10mg Take 10 mg [facility] 10 mg 5-26 by mouth ity of tablet 11:48: daily. [place] 50 Medical Branch tacrolimus 2020-0 Yes .75mg Take 0.75 U nivers 0.75 mg XR 5-26 mg by ity of tablet 11:48: mouth [place] 50 daily. Medical Branch tacrolimus 2020-0 Yes .5mg Take 0.5 Uni vers 0.5 mg 5-26 mg by ity of capsule 11:48: mouth [place] 50 every 12 Medical (twelve) Branch hours. ipratropium 2020-0 Yes .5mg Inhale 0.5 [facility] 0.02 % 5-26 mg 2 (two) ity of nebulizer 11:48: times [place] solution 50 daily. Medical Branch mycophenola 2020-0 Yes 720mg Take 720 U nivers te sodium 5-26 mg by ity of 180 mg EC 11:48: mouth [place] tablet 50 every 12 Medical (twelve) Branch hours. atovaquone 2020-0 Yes 1500mg Take 1,500 [facility] 750 mg/5 mL 5-26 mg by ity of suspension 11:48: mouth [place] 50 daily. Medical Branch azithromyci 2020-0 Yes 250mg Take 250 U nivers n 250 mg 5-26 mg by ity of tablet 11:48: mouth once [place] 50 now. Take Medical 250 mg tab Branch daily --. propranolol 2020-0 Yes 20mg Take 20 mg [facility] 20 mg 5-26 by mouth 2 ity of tablet 11:48: (two) [place] 50 times Medical daily. Branch aspirin 81 2020-0 Yes 81mg Take 81 mg U nivers mg chewable 5-26 by mouth ity of tablet 11:48: daily. [place] 50 Medical Branch magnesium 2020-0 Yes 143{tbl Take 143 U nivers chloride 5-26 } tablets by ity o f 71.5 mg 11:48: mouth 3 [place] tablet 50 (three) Medical times Branch daily. Calcium 2020-0 Yes 1{tbl} Take 1 Univer s Citrate-Vit 5-26 tablet by ity of zabala D3 315 11:48: mouth 2 [facility] mg- 250 50 (two) Medical unit Tab times Branch daily. famotidine 2020-0 Yes 20mg Take 20 mg U nivers (PEPCID) 20 5-26 by mouth 2 it y of mg tablet 11:48: (two) [place] 50 times Medical daily. Branch itraconazol 2020-0 Yes 1{capsu Take 1 U nivers e (TOLSURA) 5-26 le} capsule by it y of 65 mg CpSD 11:48: mouth [place] 50 daily. Medical Branch multivitami 2020-0 Yes 1{tbl} Take 1 Un daniella n with 5-26 tablet by ity of minerals 11:48: mouth [place] tablet 50 daily. Medical Branch predniSONE 2020-0 Yes 10mg Take 10 mg U nivers 10 mg 5-26 by mouth ity of tablet 11:48: daily. [place] 50 Medical Branch rosuvastati 2020-0 Yes 10mg Take 10 mg [facility] n (CRESTOR) 5-26 by mouth ity of 10 mg 11:48: at [place] tablet 50 bedtime. Medical Branch valGANciclo 2020-0 Yes 450mg Take 450 U nivers vir 5-26 mg by ity of (VALCYTE) 11:48: mouth 2 [place] 450 mg 50 (two) Medical tablet times Branch daily. montelukast 2020-0 Yes 10mg Take 10 mg [facility] 10 mg 5-26 by mouth ity of tablet 11:48: daily. [place] 50 Medical Branch tacrolimus 2020-0 Yes .75mg Take 0.75 U nivers 0.75 mg XR 5-26 mg by ity of tablet 11:48: mouth [place] 50 daily. Medical Branch tacrolimus 2020-0 Yes .5mg Take 0.5 Uni vers 0.5 mg 5-26 mg by ity of capsule 11:48: mouth [place] 50 every 12 Medical (twelve) Branch hours. ipratropium 2020-0 Yes .5mg Inhale 0.5 [facility] 0.02 % 5-26 mg 2 (two) ity of nebulizer 11:48: times [place] solution 50 daily. Medical Branch mycophenola 2020-0 Yes 720mg Take 720 U nivers te sodium 5-26 mg by ity of 180 mg EC 11:48: mouth [place] tablet 50 every 12 Medical (twelve) Branch hours. atovaquone 2020-0 Yes 1500mg Take 1,500 [facility] 750 mg/5 mL 5-26 mg by ity of suspension 11:48: mouth [place] 50 daily. Medical Branch azithromyci 2020-0 Yes 250mg Take 250 U nivers n 250 mg 5-26 mg by ity of tablet 11:48: mouth once [place] 50 now. Take Medical 250 mg tab Branch daily M-W-. propranolol 2020-0 Yes 20mg Take 20 mg [facility] 20 mg 5-26 by mouth 2 ity of tablet 11:48: (two) [place] 50 times Medical daily. Branch metoclopram 2020-0 Yes 5mg Take 5 mg U nivers mahin HCl 5 5-26 by mouth 2 ity of mg tablet 11:48: (two) [place] 50 times Medical daily. Branch aspirin 81 2020-0 Yes 81mg Take 81 mg [facility] nivers mg chewable 5-26 by mouth ity of tablet 11:48: daily. [place] 50 Medical Branch magnesium 2020-0 Yes 143{tbl Take 143 U nivers chloride 5-26 } tablets by ity o f 71.5 mg 11:48: mouth 3 [place] tablet 50 (three) Medical times Branch daily. Calcium 2020-0 Yes 1{tbl} Take 1 Univer s Citrate-Vit 5-26 tablet by ity of zabala D3 315 11:48: mouth 2 [facility] mg- 250 50 (two) Medical unit Tab times Branch daily. famotidine 2020-0 Yes 20mg Take 20 mg U nivers (PEPCID) 20 5-26 by mouth 2 it y of mg tablet 11:48: (two) [place] 50 times Medical daily. Branch itraconazol 2019-0 Yes 1{capsu Take 1 U nivers e (TOLSURA) 5-26 le} capsule by it y of 65 mg CpSD 11:48: mouth [place] 50 daily. Medical Branch multivitami 2020-0 Yes 1{tbl} Take 1 Un daniella n with 5-26 tablet by ity of minerals 11:48: mouth [place] tablet 50 daily. Medical Branch predniSONE 2019-0 Yes 10mg Take 10 mg U nivers 10 mg 5-26 by mouth ity of tablet 11:48: daily. [place] [address] Medical Branch rosuvastati 2020-0 Yes 10mg Take 10 mg [facility] n (CRESTOR) 5-26 by mouth ity of 10 mg 11:48: at [place] tablet 50 bedtime. Medical Branch sennosides- 2019-0 Yes 1{tbl} Take 1 [facility] docusate 5-26 tablet by ity of sodium 11:48: mouth 2 [place] 8.6-50 mg 50 (two) Medical Cap times Branch daily as needed for Constipati on. valGANciclo 2020-0 Yes 450mg Take 450 [facility] vir 5-26 mg by ity of (VALCYTE) 11:48: mouth 2 [place] 450 mg 50 (two) Medical tablet times Branch daily. montelukast 2020-0 Yes 10mg Take 10 mg [facility] 10 mg 5-26 by mouth ity of tablet 11:48: daily. [place] [address] Medical Branch tacrolimus 2020-0 Yes .75mg Take 0.75 U nivers 0.75 mg XR 5-26 mg by ity of tablet 11:48: mouth [place] 50 daily. Medical Branch tacrolimus 2020-0 Yes .5mg Take 0.5 Uni vers 0.5 mg 5-26 mg by ity of capsule 11:48: mouth [place] 50 every 12 Medical (twelve) Branch hours. ipratropium 2020-0 Yes .5mg Inhale 0.5 [facility] 0.02 % 5-26 mg 2 (two) ity of nebulizer 11:48: times [place] solution 50 daily. Medical Branch mycophenola 2020-0 Yes 720mg Take 720 U nivers te sodium 5-26 mg by ity of 180 mg EC 11:48: mouth [place] tablet 50 every 12 Medical (twelve) Branch hours. atovaquone 2020-0 Yes 1500mg Take 1,500 [facility] 750 mg/5 mL 5-26 mg by ity of suspension 11:48: mouth [place] 50 daily. Medical Branch azithromyci 2020-0 Yes 250mg Take 250 U nivers n 250 mg 5-26 mg by ity of tablet 11:48: mouth once [place] 50 now. Take Medical 250 mg tab Branch daily --. propranolol 2020-0 Yes 20mg Take 20 mg [facility] 20 mg 5-26 by mouth 2 ity of tablet 11:48: (two) [place] 50 times Medical daily. Branch metoclopram 2020-0 Yes 5mg Take 5 mg U nivers mahin HCl 5 5-26 by mouth 2 ity of mg tablet 11:48: (two) [place] 50 times Medical daily. Branch aspirin 81 2020-0 Yes 81mg Take 81 mg U nivers mg chewable 5-26 by mouth ity of tablet 11:48: daily. [place] 50 [facility] Branch magnesium 2020-0 Yes 143{tbl Take 143 U nivers chloride 5-26 } tablets by ity o f 71.5 mg 11:48: mouth 3 [place] tablet 50 (three) Medical times Branch daily. Calcium 2020-0 Yes 1{tbl} Take 1 Univer s Citrate-Vit 5-26 tablet by ity of zabala D3 315 11:48: mouth 2 [facility] mg- 250 50 (two) Medical unit Tab times Branch daily. famotidine 2020-0 Yes 20mg Take 20 mg U nivers (PEPCID) 20 5-26 by mouth 2 it y of mg tablet 11:48: (two) [place] 50 times Medical daily. Branch itraconazol 2020-0 Yes 1{capsu Take 1 U nivers e (TOLSURA) 5-26 le} capsule by it y of 65 mg CpSD 11:48: mouth [place] 50 daily. Medical Branch multivitami 2020-0 Yes 1{tbl} Take 1 Un d[facility]ella n with 5-26 tablet by ity of minerals 11:48: mouth [place] tablet 50 daily. Medical Branch predniSONE 2020-0 Yes 10mg Take 10 mg [facility] nivers 10 mg 5-26 by mouth ity of tablet 11:48: daily. [place] 50 [facility] Branch rosuvastati 0 Yes 10mg Take 10 mg [facility] n (CRESTOR) 5-26 by mouth ity of 10 mg 11:48: at [place] tablet 50 bedtime. Medical Branch sennosides- Yes 1{tbl} Take 1 [facility] docusate 5-26 tablet by ity of sodium 11:48: mouth 2 [place] 8.6-50 mg 50 (two) Medical Cap times Branch daily as needed for Constipati on. valGANciclo Yes 450mg Take 450 U nivers vir 5-26 mg by ity of (VALCYTE) 11:48: mouth 2 [place] 450 mg 50 (two) Medical tablet times Branch daily. itraconazol 2020- No [id number] 130mg QD Take 2 Method[facility] e (TOLSURA) 09-[address] 65 mg 00:00: 00:00 (130 mg Hospita capsule, 00 :00 total) by l solid mouth dispersion daily. capsule atovaquone 2018-05- No 1500mg QD Take 10 mL [facility] (MEPRON) 06-11 (1,[address] 750 mg/5 mL 00:00: 00:00 total) by Hospita suspension 00 :00 mouth l daily. aspirin 2018-05 No 81mg QD Take 1 [facility] (ECOTRIN) 06-05 tablet (81 st 81 MG 00:00: 00:00 mg total) Hospit a enteric 00 :00 by mouth l coated daily. tablet magnesium 2018-05- No 2{tbl} [id number] Take 2 [facility] chloride 06-[id number] 71.5 mg 00:00: 00:00 3D mouth 3 Hospit a tablet,binu 00 :00 (three) l yed release times a (DR/EC) day. sennosides- 2018-05- No 1{tbl} Q.5D Take 1 M ethodi docusate 06-[address] sodium 00:00: 00:00 mouth 2 Hospita (SENNA WITH 00 :00 (two) l DOCUSATE times a SODIUM) day as 8.6-50 mg needed for per tablet constipati on. FLUoxetine Yes 20mg Take 20 mg U nivers 20 mg 6-24 by mouth ity of capsule 10:32: daily. [place] [address] Medical Branch Cholecalcif Yes 1{capsu Take 1 U nivers yvrose, 6-24 le} capsule by ity of Vitamin D3, 10:32: mouth [place] 2,000 unit 26 daily. Medical capsule Branch albuterol Yes 2{puff} Inhale 2 U nivers 90 6-24 Puffs ity of mcg/actuati 10:32: every 6 James as on inhaler 26 (six) Medical hours as Branch needed. FLUoxetine Yes 20mg Take 20 mg U nivers 20 mg 6-24 by mouth ity of capsule 10:32: daily. [place] [address] Medical Branch Cholecalcif Yes 1{capsu Take 1 U nivers yvrose, 6-24 le} capsule by ity of Vitamin D3, 10:32: mouth [place] 2,000 unit 26 daily. Medical capsule Branch albuterol Yes 2{puff} Inhale 2 U nivers 90 6-24 Puffs ity of mcg/actuati 10:32: every 6 James as on inhaler 26 (six) Medical hours as Branch needed. benzonatate Yes 100mg Take 100 U nivers 100 mg 6-24 mg by ity of capsule 10:32: mouth as [place] 26 needed for Medical Cough. Branch FLUoxetine Yes 20mg Take 20 mg U nivers 20 mg 6-24 by mouth ity of capsule 10:32: daily. [place] [address] Medical Branch Cholecalcif Yes 1{capsu Take 1 U nivers yvrose, 6-24 le} capsule by ity of Vitamin D3, 10:32: mouth [place] 2,000 unit 26 daily. Medical capsule Branch albuterol Yes 2{puff} Inhale 2 U nivers 90 6-24 Puffs ity of mcg/actuati 10:32: every 6 James as on inhaler 26 (six) Medical hours as Branch needed. benzonatate Yes 100mg Take 100 U nivers 100 mg 6-24 mg by ity of capsule 10:32: mouth as [place] 26 needed for Medical Cough. Branch FLUoxetine Yes 20mg Take 20 mg U nivers 20 mg 6-24 by mouth ity of capsule 10:32: daily. [place] 26 Medical Branch Cholecalcif Yes 1{capsu Take 1 U nivers yvrose, 6-24 le} capsule by ity of Vitamin D3, 10:32: mouth [place] 2,000 unit 26 daily. Medical capsule Branch albuterol Yes 2{puff} Inhale 2 U nivers 90 6-24 Puffs ity of mcg/actuati 10:32: every 6 [place] as on inhaler 26 (six) Medical hours as Branch needed. Immunizations Ordered Immunization Filled Immunization Date Status Commen ts Source Name Name FLUZONE HIGH-DOSE PF 2021-01-23 Completed [facility] 2020[facility] Com[facility] t MRNA VACCINATION 00:00:00 [facility] COVID19 2020-09-05 Completed Methodis t MRNA VACCINATION 00:00:00 [facility] Remdesivir 2020-06-11 Completed [facility] 00:00:00 [facility] Remdesivir 2020-06-10 Completed [facility] 00:00:00 [facility] Remdesivir 2020-06-09 Completed [facility] 00:00:00 [facility] Remdesivir 2020-06-08 Completed [facility] 00:00:00 [facility] Remdesivir 2020-06-07 Completed [facility] 00:00:00 [facility] COVID19 2020-05-01 Completed Methodis t MRNA VACCINATION 00:00:00 [facility] FLUCELVAX QUAD PF 2019-02-[address] 00:00:00 Hospital Zoster Vaccine 2018-08-29 Completed [facility] Recombinant 00:00:00 Hospital Vital Signs Vital Name Observation Time Observation Value Comments Source Systolic blood 2021-02-18 15:04:00 128 mm[Hg] Univer sity of pressure [facility] Diastolic blood 2021-02-18 15:04:00 67 mm[Hg] Unive rsity of [facility] Heart rate 2021-02-18 15:04:00 56 /min [facility] Respiratory rate 2021-02-18 15:04:00 12 /min [facility] [facility] Oxygen saturation in 2021-02-18 15:04:00 100 /min University of Arterial blood by [place] [facility] Pulse oximetry Branch Body temperature 2021-02-18 14:54:00 36.22 Daniella [facility] [place] [facility] Body weight 2021-02-05 13:55:00 63.5 kg [facility] [place] [facility] BMI 2021-02-05 13:55:00 25.60 kg/m2 [facility] [place] [facility] Systolic blood 2021-02-18 12:25:00 160 mm[Hg] M-93 Univer sity of pressure [place] [facility] Diastolic blood 2021-02-18 12:25:00 73 mm[Hg] M-93 Unive rsity of pressure [place] [facility] Heart rate 2021-02-18 12:25:00 55 /min [facility] [place] [facility] Body temperature 2021-02-18 12:25:00 36.56 Daniella [facility] [place] [facility] Respiratory rate 2021-02-18 12:25:00 16 /min [facility] [place] [facility] Oxygen saturation in 2021-02-18 12:25:00 100 /min [facility] of Arterial blood by [place] [facility] Pulse oximetry Branch Body weight 2021-02-05 13:55:00 63.5 kg [facility] [place] [facility] BMI 2021-02-05 13:55:00 25.60 kg/m2 [facility] [place] [facility] Systolic blood 2021-01-28 17:36:00 149 mm[Hg] Univer sity of pressure [place] [facility] Diastolic blood 2021-01-28 17:36:00 86 mm[Hg] Unive rsity of pressure [place] [facility] Heart rate 2021-01-28 17:36:00 58 /min [facility] [place] [facility] Respiratory rate 2021-01-28 17:36:00 19 /min [facility] [place] [facility] Oxygen saturation in 2021-01-28 17:36:00 100 /min [facility] Arterial blood by [place] [facility] Pulse oximetry Branch Body temperature 2021-01-28 17:24:00 36.56 Daniella [facility] [place] [facility] Body height 2021-01-27 15:00:00 157.5 cm [facility] [place] [facility] Body weight 2021-01-27 15:00:00 63.504 kg [facility] [place] [facility] BMI 2021-01-27 15:00:00 25.61 kg/m2 [facility] Systolic blood 2021-01-28 17:24:00 161 mm[Hg] Univer sity of pressure [facility] Diastolic blood 2021-01-28 17:24:00 72 mm[Hg] Unive rsity of [facility] Heart rate 2021-01-28 17:24:00 58 /min [facility] Body temperature 2021-01-28 17:24:00 36.56 Daniella [facility] [facility] Respiratory rate 2021-01-28 17:24:00 14 /min [facility] [facility] Oxygen saturation in 2021-01-28 14:55:00 100 /min [facility] Arterial blood by [place] [facility] Pulse oximetry [place] Body height 2021-01-27 15:00:00 157.5 cm [facility] Body weight 2021-01-27 15:00:00 63.504 kg [facility] BMI 2021-01-27 15:00:00 25.61 kg/m2 [facility] Systolic blood 2021-05-31 18:03:19 119 mm[Hg] [facility] pressure Diastolic blood 2021-05-31 18:03:19 57 mm[Hg] [facility] pressure Heart rate 2021-05-31 18:03:19 63 /min [facility] Body temperature 2021-05-31 18:03:19 36.44 Daniella [facility] Respiratory rate 2021-05-31 18:03:19 18 /min [facility] Oxygen saturation in 2021-05-31 18:03:19 99 /min [facility] Arterial blood by Pulse oximetry Body weight 2021-05-31 11:05:46 57.38 kg [facility] BMI 2021-05-31 11:05:46 23.14 kg/m2 [facility] Body height 2021-05-12 03:38:00 157.5 cm [facility] Procedures Procedure Date / Time Performing Clinician Source Performed POC GLUCOSE 2021-05-31 Luis Alfredo Patel [facility] 18:04:00 POC GLUCOSE 2021-05-31 Luis Alfredo Patel Hospit al 14:05:00 HEPATIC FUNCTION PANEL 2021-05-31 Jorge Alberto [facility] 11:29:00 LIPASE LEVEL 2021-05-31 Jorge Alberto [facility] Hospit al 11:29:00 HC COMPLETE BLD COUNT W/AUTO 2021-05-31 Carlos [facility] DIFF 11:28:00 BASIC METABOLIC PANEL 2021-05-31 [facility], [facility] 11:28:00 MAGNESIUM LEVEL 2021-05-31 [facility], [facility] al 11:28:00 PHOSPHORUS LEVEL 2021-05-31 [facility], [facility] matilda 11:28:00 ESTIMATED GFR 2021-05-31 [facility], [facility] al 11:28:00 POC GLUCOSE 2021-05-31 Luis Alfredo Patel [facility] 04:46:00 POC GLUCOSE 2021-05-30 Luis Alfredo Patel [facility] 23:58:00 POC GLUCOSE 2021-05-30 Luis Alfredo Patel [facility] al 18:42:00 POC GLUCOSE 2021-05-30 Luis Alfredo Patel [facility] Hospit al 14:05:00 HC COMPLETE BLD COUNT W/AUTO 2021-05-30 Carlos [facility] DIFF 11:31:00 BASIC METABOLIC PANEL 2021-05-30 [facility], [facility] 11:31:00 MAGNESIUM LEVEL 2021-05-30 Carlos, [facility] Hospit al 11:31:00 PHOSPHORUS LEVEL 2021-05-30 [facility], [facility] matilda 11:31:00 [id number] TACROLIMUS LEVEL, 2021-05-30 Delta [facility] TROUGH 11:31:00 ESTIMATED GFR 2021-05-30 [facility], [facility] al 11:31:00 HEPATIC FUNCTION PANEL 2021-05-30 [facility], [facility] 11:31:00 LIPASE LEVEL 2021-05-30 [facility], [facility] Hospit al 11:31:00 POC GLUCOSE 2021-05-30 Luis Alfredo Patel [facility] Hospit al 03:36:00 POC GLUCOSE 2021-05-29 Luis Alfredo Patelist Hospit al 23:28:00 POC GLUCOSE 2021-05-29 Luis Alfredo Patel [facility] Hospit al 18:05:00 HC COMPLETE BLD COUNT W/AUTO 2021-05-29 [facility] DIFF 11:51:00 BASIC METABOLIC PANEL 2021-05-29 [facility] 11:51:00 MAGNESIUM LEVEL 2021-05-29 [facility], [facility] 11:51:00 PHOSPHORUS LEVEL 2021-05-29 [facility], [facility] matilda 11:51:00 [id number] TACROLIMUS LEVEL, 2021-05-29 [facility] TR[facility] 11:51:00 ESTIMATED GFR 2021-05-29 [facility], [facility] al 11:51:00 VENIPUNC NEED PHYS SKILL,DX 2021-05-28 [facility] RX 16:16:25 HC COMPLETE BLD COUNT W/AUTO 2021-05-28 [facility] DIFF 10:18:00 BASIC METABOLIC PANEL 2021-05-28 [facility] 10:18:00 MAGNESIUM LEVEL 2021-05-28 [facility], [facility] 10:18:00 PHOSPHORUS LEVEL 2021-05-28 [facility], [facility] 10:18:00 [id number] TACROLIMUS LEVEL, 2021-05-28 [facility] TROUGH 10:18:00 ESTIMATED GFR 2021-05-28 [facility], [facility] 10:18:00 BASIC METABOLIC PANEL 2021-05-28 Luis Alfredo Patel [facility] 03:50:00 ESTIMATED GFR 2021-05-28 Luis Alfredo Patel [facility] Hospit al 03:50:00 CBC WITH PLATELET AND 2021-05-27 [facility] DIFFERENTIAL 11:46:00 BASIC METABOLIC PANEL 2021-05-27 [facility] 11:46:00 MAGNESIUM LEVEL 2021-05-27 [facility], [facility] al 11:46:00 PHOSPHORUS LEVEL 2021-05-27 Megan Gonzalezist Hospi matilda 11:46:00 [id number] TACROLIMUS LEVEL, 2021-05-27 Dionne Sorenson [facility] TROUGH 11:46:00 IMMUNOGLOBULIN G 2021-05-27 [facility] 11:46:00 ESTIMATED GFR 2021-05-27 [facility] 11:46:00 MANUAL DIFFERENTIAL 2021-05-27 Megan Gonzalezist Ho spital 11:46:00 POTASSIUM LEVEL 2021-05-26 [facility] ospital 22:38:00 SURGICAL PATHOLOGY REQUEST 2021-05-26 Luis Alfredo Patel [facility] 21:48:00 UPPER GI TRACT, 2021-05-26 [facility] ENDOSCOPIC 20:06:00 POC PANEL 2021-05-26 Luis Alfredo Patel Hospit al 18:14:00 POTASSIUM LEVEL 2021-05-26 Elva Nicole [facility] Hospit al 17:29:00 Iram CANCER ANTIGEN 125 2021-05-26 Luis Alfredo Patel Hos pital 10:44:00 CBC WITH PLATELET AND 2021-05-26 [facility] DIFFERENTIAL 10:44:00 BASIC METABOLIC PANEL 2021-05-26 [facility] 10:44:00 MAGNESIUM LEVEL 2021-05-26 Megan Gonzalez [facility] Hospit al 10:44:00 PHOSPHORUS LEVEL 2021-05-26 Megan Gonzalez [facility] matilda 10:44:00 [id number] TACROLIMUS LEVEL, 2021-05-26 Dionne Sorenson [facility] TROUGH 10:44:00 IMMUNOGLOBULIN G SUBCLASS 4 2021-05-26 Elva Nicole [facility] 10:44:00 Iram ESTIMATED GFR 2021-05-26 Megan Gonzalezist Hospit al 10:44:00 MANUAL DIFFERENTIAL 2021-05-26 Megan Gonzalezist Ho spital 10:44:00 CBC WITH PLATELET AND 2021-05-25 [facility] DIFFERENTIAL 12:38:00 BASIC METABOLIC PANEL 2021-05-25 [facility] 12:38:00 MAGNESIUM LEVEL 2021-05-25 [facility] 12:38[facility]00 PHOSPHORUS LEVEL 2021-05-25 [facility], [facility] [place] [facility] 12:38:00 LIPASE LEVEL 2021-05-25 [facility], [facility] [place] [facility] 12:38:00 [id number] TACROLIMUS LEVEL, 2021-05-25 [facility] TROUGH 12:38:00 AMYLASE LEVEL 2021-05-25 Ye, [facility] [place] Hospit al 12:38:00 ESTIMATED GFR 2021-05-25 [facility] 12:38:00 MANUAL DIFFERENTIAL 2021-05-25 [facility] spital 12:38:00 MRI CHOLANGIOGRAM W WO 2021-05-24 [facility] CONTRAST 13:53:00 [id number] TACROLIMUS LEVEL, 2021-05-24 [facility] TROUGH 11:30:00 CBC WITH PLATELET AND 2021-05-24 [facility] DIFFERENTIAL 11:30:00 AMYLASE LEVEL 2021-05-24 [facility] BASIC METABOLIC PANEL 2021-05-24 , [facility] 11:30:00 LIPASE LEVEL 2021-05-24 Ye, [facility] [place] Hospit al 11:30:00 PHOSPHORUS LEVEL 2021-05-24 Ye, [facility] matilda 11:30:00 MAGNESIUM LEVEL 2021-05-24 Ye, [facility] [place] Hospit al 11:30:00 ESTIMATED GFR 2021-05-24 [facility] 11:[facility]00 MANUAL DIFFERENTIAL 2021-05-24 Ye, [facility] spital 11:30:00 LACTIC ACID LEVEL, SEPSIS - 2021-05-24 [facility] NOW AND REPEAT 2X EVERY 3 03:53:[address] [facility] CT ABDOMEN PELVIS W CONTRAST 2021-05-23 [facility] 22:06:[address] [facility] BLOOD CULTURE, AEROBIC & 2021-05-23 [facility] ANAEROBIC 19:57:00 Owen URINE CULTURE 2021-05-23 [facility] 19:55:00 Owen CBC WITH PLATELET AND 2021-05-[address] [facility] DIFFERENTIAL 19:55:00 Owen COMPREHENSIVE METABOLIC 2021-05-23 [facility] PANEL 19:55:00 Owen LIPASE LEVEL 2021-05-23 [facility] 19:55:00 Owen URINALYSIS SCREEN AND 2021-05-[address] [facility] MICROSCOPY, WITH REFLEX TO 19:55:[address] [facility] CULTURE LACTIC ACID LEVEL, SEPSIS - 2021-05-23 [facility] NOW AND REPEAT 2X EVERY 3 19:55:00 Owen HOURS ESTIMATED GFR 2021-05-23 [facility] 19:55:00 Owen MANUAL DIFFERENTIAL 2021-05-23 [facility] spital 19:55:00 Owen ND CRITICAL CARE, E/M 30-74 2021-05-23 [facility] MINUTES 19:44:[address] [facility] RESPIRATORY PATHOGEN PANEL 2021-05-23 [facility] WITH COVID-19 RT-PCR 19:40:00 Owen MAGNESIUM LEVEL 2021-05-21 [facility] 13:02:00 PHOSPHORUS LEVEL 2021-05-21 [facility] 13:02:00 BASIC METABOLIC PANEL 2021-05-[address] [facility] 13:02:00 CBC WITH PLATELET AND 2021-05-[address] [facility] DIFFERENTIAL 13:02:00 [id number] TACROLIMUS LEVEL, 2021-05-21 [facility] RANDOM 13:02:00 POC GLUCOSE 2021-05-15 Luis Alfredo Patel Hospit al 18:29:00 POC GLUCOSE 2021-05-15 Luis Alfredo Patel Hospit al 14:34:00 [id number] TACROLIMUS LEVEL, 2021-05-15 Luis Alfredo Patel [facility] RANDOM 11:26:00 MAGNESIUM LEVEL 2021-05-15 Luis Alfredo Patel [facility] 11:26:00 PHOSPHORUS LEVEL 2021-05-15 Luis Alfredo Patel [facility] 11:26:00 BASIC METABOLIC PANEL 2021-05-15 [facility] 11:26:00 CBC WITH PLATELET AND 2021-05-15 [facility] DIFFERENTIAL 11:26:00 ESTIMATED GFR 2021-05-15 Luis Alfredo Patel [facility] 11:26:00 MANUAL DIFFERENTIAL 2021-05-15 Luis Alfredo Patel [facility] sp[facility] 11:26:00 POC GLUCOSE 2021-05-15 Luis Alfredo Patel [facility] 06:58:00 POC GLUCOSE 2021-05-14 Luis Alfredo Patel [facility] 19:19:00 POC GLUCOSE 2021-05-14 Luis Alfredo Patel [facility] 13:54:00 [id number] TACROLIMUS LEVEL, 2021-05-14 Luis Alfredo Patel [facility] RANDOM 11:44:00 MAGNESIUM LEVEL 2021-05-14 Luis Alfredo Patel [facility] 11:44:00 PHOSPHORUS LEVEL 2021-05-14 Luis Alfredo Patel [facility] 11:44:00 BASIC METABOLIC PANEL 2021-05-14 [facility] 11:44:00 CBC WITH PLATELET AND 2021-05-14 Luis Alfred[facility] Patel [facility] DIFFERENTIAL 11:44:00 ESTIMATED GFR 2021-05-14 Luis Alfredo Patel [facility] 11:44:00 MANUAL DIFFERENTIAL 2021-05-14 Luis Alfredo Patelist Ho spital 11:44:00 POC GLUCOSE 2021-05-14 Luis Alfredo Patel [facility] 04:18:00 POC GLUCOSE 2021-05-14 Luis Alfredo Patel [facility] 00:28:00 XR ABDOMEN 1 VW 2021-05-13 Luis Alfredo Patel Hospit al 23:46:00 POC GLUCOSE 2021-05-13 Luis Alfredo Patel Hospit al 18:41:00 POC GLUCOSE 2021-05-13 Luis Alfredo Patel Hospit al 13:39:00 [id number] TACROLIMUS LEVEL, 2021-05-13 Luis Alfredo Patel [facility] RANDOM 10:19:00 MAGNESIUM LEVEL 2021-05-13 Luis Alfredo Patel Hospit al 10:19:00 PHOSPHORUS LEVEL 2021-05-13 Luis Alfredo Patelist [facility] matilda 10:19:00 BASIC METABOLIC PANEL 2021-05-13 Luis Alfredo Patel [facility] 10:19:00 CBC WITH PLATELET AND 2021-05-13 Luis Alfredo Patel [facility] DIFFERENTIAL 10:19:00 IMMUNOGLOBULIN G 2021-05-13 Dionne [facility]orensonist Hospi matilda 10:19:00 LIPID PANEL 2021-05-13 Dionne Sorenson Hospit al 10:19:00 AMYLASE LEVEL 2021-05-13 [facility] Hospit al 10:19:00 LIPASE LEVEL 2021-05-13 [facility] Hospit al 10:19:00 CANCER ANTIGEN 19-9 2021-05-13 Dionne Sorenson Ho spital 10:19:00 CARCINOEMBRYONIC ANTIGEN 2021-05-13 [facility] ([facility]) 10:19:00 ESTIMATED GFR 2021-05-13 Luis Alfredo Patel Hospit al 10:19:00 MANUAL DIFFERENTIAL 2021-05-13 Luis Alfredo Patel spital 10:19:00 POC GLUCOSE 2021-05-12 Luis Alfredo Patel Hospit al 23:38:00 OSMOLALITY, URINE 2021-05-12 Luis Alfredo Patel Hosp ital 18:24:00 SODIUM LEVEL, URINE, RANDOM 2021-05-12 Luis Alfredo Patel [facility] 18:24:00 POC GLUCOSE 2021-05-12 Luis Alfredo Patelist Hospit al 18:23:00 BASIC METABOLIC PANEL 2021-05-12 Mitra Harden [facility] 17:15:00 Ivc ESTIMATED GFR 2021-05-12 Mitra Harden [facility] 17:15:00 Vic THYROID STIMULATING HORMONE 2021-05-12 Mitra Harden [facility] 17:15:00 Vic RESPIRATORY PATHOGEN PANEL 2021-05-12 DeltaDionne [facility] WITH COVID-19 RT-PCR 17:09:00 OSMOLALITY, SERUM 2021-05-12 Luis Alfredo Patel Hosp ital 17:08:00 POC GLUCOSE 2021-05-12 Luis Alfredo Patel Hospit al 13:44:00 [id number] TACROLIMUS LEVEL, 2021-05-12 Luis Alfredo Patel [facility] RANDOM 11:23:00 MAGNESIUM LEVEL 2021-05-12 Luis Alfredo Patel Hospit al 11:23:00 PHOSPHORUS LEVEL 2021-05-12 [facility] 11:23:00 BASIC METABOLIC PANEL 2021-05-12 Luis Alfredo Patel [facility] 11:23:00 HC COMPLETE BLD COUNT W/AUTO 2021-05-12 Luis Alfredo Patel [facility] DIFF 11:23:00 ESTIMATED GFR 2021-05-12 Luis Alfredo Patel Hospit al 11:23:00 SMEAR REVIEW 2021-05-12 Luis Alfredo Patel Hospit al 11:23:00 AMYLASE LEVEL 2021-05-12 Luis Alfredo Patelist Hospit al 11:23:00 LIPASE LEVEL 2021-05-12 Luis Alfredo Patel Hospit [facility] 11:23:00 URINE CULTURE 2021-05-12 Luis Alfredo Patel Hospit [facility] 11:16:00 URINALYSIS SCREEN AND 2021-05-12 Luis Alfredo Patel [facility] MICROSCOPY, WITH REFLEX TO 08:37:00 CULTURE LACTIC ACID LEVEL, SEPSIS - 2021-05-12 Luis Alfredo Patel [facility] NOW AND REPEAT 2X EVERY 3 06:31:00 HOURS TROPONIN T 2021-05-12 Luis Alfredo Patelist Hospit [facility] 06:31:00 POC GLUCOSE 2021-05-12 Luis Alfredo Patel Hospit al 06:01:00 CT ABDOMEN PELVIS WO 2021-05-[address] [facility] ospital CONTRAST 03:32:02 Ololade BLOOD CULTURE, AEROBIC & 2021-05-12 [facility] ANAEROBIC 02:52:00 Ololade COVID-19 QUALITATIVE RT-PCR 2021-05-12 [facility] 02:52:00 Ololade LACTIC ACID LEVEL, SEPSIS - 2021-05-12 [facility] NOW AND REPEAT 2X EVERY 3 02:52:00 HOURS TROPONIN T 2021-05-12 [facility] 02:[facility]00 XR CHEST 1 VW PORTABLE 2021-05-11 [facility] 23:49:34 Ololade ND CRITICAL CARE, E/M 30-74 2021-05-11 [facility] MINUTES 23:39:05 Ololade ECG ED PRELIMINARY 2021-05-11 [facility] Hos pital INTERPRETATION 23:39:05 Ololade BLOOD CULTURE, AEROBIC & 2021-05-11 [facility] ANAEROBIC 23:23:00 Ololade CBC WITH PLATELET AND 2021-05-11 [facility] DIFFERENTIAL 23:21:00 Ololade COMPREHENSIVE METABOLIC 2021-05-11 [facility] PANEL 23:21:00 Ololade PROTHROMBIN TIME WITH INR 2021-05-11 [facility] 23:21:00 Ololade PARTIAL THROMBOPLASTIN TIME 2021-05-11 [facility] (PTT) 23:21:00 Ololade TYPE AND SCREEN 2021[facility]05[facility] Ololade PHOSPHORUS LEVEL 2021-05-11 Stone, Aster [facility] mat[facility] 23:21:00 Ololade MAGNESIUM LEVEL 2021-05-11 [facility] Hospit al 23:21:00 Ololade LACTIC ACID LEVEL, SEPSIS - 2021-05-11 [facility] NOW AND REPEAT 2X EVERY 3 23:21:00 HOURS LIPASE LEVEL 2021-05-11 [facility]00 Ol[place] TROPONIN T 2021-05-11 Luis Alfredo Patel [facility] 23:21:00 B NATRIURETIC PEPTIDE 2021-05-11 [facility] 23:21:00 Ololade AMMONIA LEVEL 2021-05-11 [facility]:21[facility]00 [place] ESTIMATED GFR 2021-05-[facility] 23[facility]21:00 Ololade MANUAL DIFFERENTIAL 2021-05-11 [place] [facility] 23:21:00 Ololade ECG 12-LEAD 2021-05-[facility] 21:[facility]37 Sterling R. MAGNESIUM LEVEL 2021-05-09 [facility] 14:10:00 PHOSPHORUS LEVEL 2021-05-09 [facility] 14:10:00 BASIC METABOLIC PANEL 2021-05-[address] [facility] 14:10:00 CBC WITH PLATELET AND 2021-05-[address] [facility] DIFFERENTIAL 14:10:00 [id number] TACROLIMUS LEVEL, 2021-05-09 [facility] RANDOM 14:10:00 POC GLUCOSE 2021-04-30 [facility] 19[facility]00 COVID-19 QUALITATIVE RT-PCR 2021-04-30 [facility], [facility] 19:30:00 LEGIONELLA CULTURE 2021-04-30 Mitesh, [facility] 19:30:00 FUNGUS CULTURE 2021-04-30 [facility] AFB CULTURE 2021-04-30[facility]00 RESPIRATORY PATHOGEN PANEL 2021-04-30, [facility] WITH COVID-19 RT-PCR 19:30:00 FUNGUS SMEAR 2021-04-30, [facility] AFB STAIN 2021-04-30, [facility] 19:30:00 CYTOMEGALOVIRUS BY PCR 2021-04-30u, [facility] 19:30:00 HERPES SIMPLEX VIRUS BY PCR 2021-04-30, [facility] 19:30:00 VARICELLA ZOSTER BY PCR 2021-04-30, [facility] 19:30:00 CYTOLOGY (NON-GYNECOLOGICAL) 2021-04-30, [facility] REQUEST 19:30:00 BRONCHOSCOPY 2021-04-30, [facility] 17[facility]18[facility]00 COVID-19 QUALITATIVE RT-PCR 2021-04-29, [facility] 17:56:00 XR CHEST 2 VW 2021-04-28, [facility] 15:02:11 ECG 12-LEAD 2021-04-28, [facility] 14:50:01 SPIROMETRY 2021-04-28u, [facility] 13:45:51 HC COMPLETE BLD COUNT W/AUTO 2021-04-28, [facility] DIFF 13:05:00 COMPREHENSIVE METABOLIC 2021-04-28u, [facility] PANEL 13:05:00 MAGNESIUM LEVEL 2021-04-28, [facility] 13:05:00 PHOSPHORUS LEVEL 2021-04-28, [facility] 13:05:00 LDH 2021-04-28, [facility] 13:05:00 [id number] TACROLIMUS LEVEL, 2021-04-28 [facility], [facility] TROUGH 13:05:00 CYTOMEGALOVIRUS BY PCR 2021-04-28u, [facility] 13:05:00 ESTIMATED GFR 2021-04-28 [facility], [facility] 13:05:00 DONOR SPECIFIC ANTIBODY 2021-04-28 [facility], [facility] 13:05:00 COVID-19 QUALITATIVE RT-PCR 2021-04-23 Jorge Chowdhury [facility] 16:37:00 MAGNESIUM LEVEL 2021-04-18 [facility] 14:08:00 PHOSPHORUS LEVEL 2021-04-18 [facility] matilda 14:08:00 BASIC METABOLIC PANEL 2021-04-[address] [facility] 14:08:00 CBC WITH PLATELET AND 2021-04-[address] [facility] DIFFERENTIAL 14:08:00 [id number] TACROLIMUS LEVEL, 2021-04-18 [facility] RANDOM 14:08:00 MAGNESIUM LEVEL 2021-04-04 [facility] 14:11:00 PHOSPHORUS LEVEL 2021-04-04 [facility] 14:11:00 BASIC METABOLIC PANEL 2021-04-[address] [facility] 14:11:00 CBC WITH PLATELET AND 2021-04-[address] [facility] DIFFERENTIAL 14:11:00 [id number] TACROLIMUS LEVEL, 2021-04-04 [facility] RANDOM 14:11:00 MAGNESIUM LEVEL 2021-03-19 [facility] 13:15:00 PHOSPHORUS LEVEL 2021-03-19 [facility] 13:15:00 BASIC METABOLIC PANEL 2021-03-[address] [facility] 13:15:00 CBC WITH PLATELET AND 2021-03-[address] [facility] DIFFERENTIAL 13:15:00 [id number] TACROLIMUS LEVEL, 2021-03-19 [facility] RANDOM 13:15:00 MAGNESIUM LEVEL 2021-02-28 [facility] 14:04:00 PHOSPHORUS LEVEL 2021-02-28 [facility] matilda 14:04:00 BASIC METABOLIC PANEL 2021-02-[address] [facility] 14:04:00 CBC WITH PLATELET AND 2021-02-[address] [facility] DIFFERENTIAL 14:04:00 [id number] TACROLIMUS LEVEL, 2021-02-28 Dulce Roldan [facility] RANDOM 14:04:00 PHACOEMULSIFICATION OF 2021-02-18 Terrance Donovan [facility] CATARACT WITH INTRAOCULAR 14:19:00 Medica l Branch LENS IMPLANT ASSIGNMENT OF BENEFITS 2021-02-16 Doctor Unassigned, [facility] 20:48:35 [facility] MAGNESIUM LEVEL 2021-02-13 Dulce Roldan Hospit al 12:10:00 PHOSPHORUS LEVEL 2021-02-13 Dulce Roldan Hospi matilda 12:10:00 BASIC METABOLIC PANEL 2021-02-13 [facility] 12:10:00 CBC WITH PLATELET AND 2021-02-13 [facility] DIFFERENTIAL 12:10:00 [id number] TACROLIMUS LEVEL, 2021-02-13 Dulce Roldan [facility] RANDOM 12:10:00 TTE COMPLETE, WO CONTRAST, W 2021-02-03 Dulce Roldan [facility] DOPPLER ([id number]) 19:53:00 ECG 12-LEAD 2021-02-03 Dulce Roldan Hospit al 18:25:58 BONE DENSITY PERIPHERAL 2021-02-03 Ducle Roldan [facility] 16:20:12 BONE DENSITY 2021-02-03 Dulce Roldan Hospit al 16:19:02 CT CHEST WO CONTRAST 2021-02-03 Dulce Roldan H ospital 15:21:00 SIX MINUTE WALK W/ PULSE 2021-02-03 Dulce Roldan [facility] OXIMETRY 13:41:26 SPIROMETRY, DIFFUSION, LUNG 2021-02-03 Dulce Roldan [facility] VOLUMES 13:08:49 [id number] N 2021-02-03 Maribel [facility]astume [facility] (NUCLEOCAPSID PROTEIN) 12:31:00 ANTIBODY URINE CULTURE 2021-02-03 Dulce Roldan Hospit al 12:31:00 HC COMPLETE BLD COUNT W/AUTO 2021-02-03 Goodarzi, [facility] DIFF 12:31:00 COMPREHENSIVE METABOLIC 2021-02-[address] [facility] PAN[facility] 12:31:00 MAGNESIUM LEVEL 2021-02-03 [facility] 12:31:00 PHOSPHORUS LEVEL 2021-02-03 [facility] 12:31:00 IMMUNOGLOBULIN M 2021-02-03 [facility] 12:31:00 LDH 2021-02-03 [facility] 12:31:00 LIPID PANEL 2021-02-03 [facility] 12:31:00 NICOTINE AND COTININE, SERUM 2021-02-03 [facility] 12:31:00 PARATHYROID HORMONE 2021-02-03 [facility] 12:31:00 THYROID STIMULATING HORMONE 2021-02-03 [facility] 12:31:00 TB T-SPOT 2021-02-03 [facility] 12:31:00 VITAMIN D 25 HYDROXY LEVEL 2021-02-03 [facility] 12:31:00 CREATININE LEVEL, URINE, 2021-02-03 [facility] RANDOM 12:31:00 PROTEIN, URINE, RANDOM 2021-02-[address] [facility] 12:31:00 URINE DRUGS OF ABUSE SCREEN 2021-02-03 [facility] 12:31:00 [id number] TACROLIMUS LEVEL, 2021-02-03 [facility] TROUGH 12:31:00 CYTOMEGALOVIRUS BY PCR 2021-02-[address] [facility] 12:31:00 CYTOMEGALOVIRUS AB, IGG 2021-02-03 [facility] 12:31:00 CYTOMEGALOVIRUS AB, IGM 2021-02-03 [facility] 12:31:00 RADHA ROBERTO VIRUS (EBV) BY 2021-02-03 [facility] PCR 12:31:00 HIV AG/AB COMBINATION 2021-02-[address] [facility] 12:31:00 HEPATITIS B SURFACE AB, 2021-02-03 [facility] QUANTITATIVE 12:31:00 HEPATITIS B CORE ANTIBODY 2021-02-03 [facility] TOTAL 12:31:00 HEPATITIS B VIRUS (HBV), 2021-02-03 [facility] QUANTITATIVE PCR 12:31:00 HEPATITIS C ANTIBODY 2021-02-03 [facility] ospital 12:31:00 HEPATITIS C VIRUS (HCV), 2021-02-03 [facility] QUANTITATIVE PCR 12:31:00 FERRITIN LEVEL 2021-02-03 [facility] 12:31:00 FOLATE LEVEL 2021-02-03 [facility] 12:31:00 TOTAL IRON BINDING CAPACITY 2021-02-03 [facility] 12:31:00 VITAMIN B12 LEVEL 2021-02-03 [facility] ital 12:31:00 URINALYSIS SCREEN AND 2021-02-[address] [facility] MICROSCOPY, WITH REFLEX TO 12:31:00 CULTURE ESTIMATED GFR 2021-02-03 [facility] 12:31:00 DONOR SPECIFIC ANTIBODY 2021-02-03 [facility] 12:31:00 OSMOLALITY, SERUM 2021-02-03 [facility] ital 12:31:00 SODIUM LEVEL, URINE, RANDOM 2021-02-03 [facility] 12:31:00 OSMOLALITY, URINE 2021-02-03 [facility] ital 12:31:00 COVID-19 QUALITATIVE RT-PCR 2021-02-03 [facility] 11:52:00 PHACOEMULSIFICATION OF 2021-01-28 Terrance Donovan [facility] CATARACT WITH INTRAOCULAR 16:45:00 Medica l Branch LENS IMPLANT ASSIGNMENT OF BENEFITS 2021-01-27 Doctor Unassigned, [facility] 20:52:31 [facility] ASSIGNMENT OF BENEFITS 2021-01-16 Doctor Unassigned, [facility] 15:49:48 [facility] MAGNESIUM LEVEL 2021-01-14 [facility] 12:12:00 PHOSPHORUS LEVEL 2021-01-14 [facility] 12:12:00 BASIC METABOLIC PANEL 2021-01-[address] [facility] 12:12:00 CBC WITH PLATELET AND 2021-01-[address] [facility] DIFFERENTIAL 12:12:00 [id number] TACROLIMUS LEVEL, 2021-01-14 [facility] RANDOM 12:12:00 POC GLUCOSE 2020-12-23 [facility], [facility] 14:27:00 LEGIONELLA CULTURE 2020-12-23 [facility], [facility] pital 14:20:00 AFB CULTURE 2020-12-23 [facility], [facility] 14:20:00 FUNGUS CULTURE 2020-12-23 [facility], [facility] 14:20:00 FUNGUS SMEAR 2020-12-23 [facility], [facility] 14:20:00 RESPIRATORY PATHOGEN PANEL 2020-12-23 [facility], [facility] WITH COVID-19 RT-PCR 14:20:00 AFB STAIN 2020-12-23 [facility], [facility] 14:20:00 CYTOMEGALOVIRUS BY PCR 2020-12-23 [facility], [facility] 14:20:00 HERPES SIMPLEX VIRUS BY PCR 2020-12-23 [facility], [facility] 14:20:00 VARICELLA ZOSTER BY PCR 2020-12-23 [facility], [facility] 14:20:00 BAL CELL COUNT AND 2020-12-23 [facility], [facility] pital DIFFERENTIAL 14:20:00 CYTOLOGY (NON-GYNECOLOGICAL) 2020-12-23u, [facility] REQUEST 14:20:00 BRONCHOSCOPY 2020-12-23 [facility], [facility] al 13:43:00 POC GLUCOSE 2020-12-23u, [facility] 12:48:00 HC COMPLETE BLD COUNT W/AUTO 2020-12-23 Dulce Roldan [facility] DIFF 12:14:00 PROTHROMBIN TIME WITH INR 2020-12-23 Dulce Roldan [facility] 12:14:00 [id number] TACROLIMUS LEVEL, 2020-12-[address] [facility] TR[facility] 12:14:00 BASIC METABOLIC PANEL 2020-12-23 [facility] 11:53:00 MAGNESIUM LEVEL 2020-12-[facility] 11:53:00 PHOSPHORUS LEVEL 2020-12-23 [facility]pi matilda 11:53:00 ESTIMATED GFR 2020-12-23 [facility] 11:53:00 ECG 12-LEAD 2020-12-09 [facility], [facility] 14:47:03 XR CHEST 2 VW 2020-12-09 Mitesh, [facility] 13:36:00 SPIROMETRY 2020-12-09 [facility], [facility] 12:16:55 HC COMPLETE BLD COUNT W/AUTO 2020-12-09 [facility], Maribel [facility] DIFF 11:25:00 COMPREHENSIVE METABOLIC 2020-12-09 [facility], [facility] PANEL 11:25:00 MAGNESIUM LEVEL 2020-12-09 Mitesh, [facility] 11:25:00 PHOSPHORUS LEVEL 2020-12-09 [facility], [facility] 11:25:00 LDH 2020-12-09 Mitesh, [facility] 11:25:00 [id number] TACROLIMUS LEVEL, 2020-12-09 [facility], [facility] TROUGH 11:25:00 CYTOMEGALOVIRUS BY PCR 2020-12-09 [facility], [facility] 11:25:00 ESTIMATED GFR 2020-12-09 Mitesh, [facility] al 11:25:00 MAGNESIUM LEVEL 2020-12-05 [facility] 12:34:00 PHOSPHORUS LEVEL 2020-12-05 Jamar [facility] Hospi matilda 12:34:00 BASIC METABOLIC PANEL 2020-12-[address] [facility] 12:34:00 CBC WITH PLATELET AND 2020-12-[address] [facility] DIFFERENTIAL 12:34:00 [id number] TACROLIMUS LEVEL, 2020-12-05 [facility] RANDOM 12:34:00 COVID-19 QUALITATIVE RT-PCR 2020-12-05 Maribel Sagastume [facility] 07:24:00 MAGNESIUM LEVEL 2020-11-22 Jamar [facility] Hospit al 13:15:00 PHOSPHORUS LEVEL 2020-11-22 [facility] 13:15:00 BASIC METABOLIC PANEL 2020-11-[address] [facility] 13:15:00 CBC WITH PLATELET AND 2020-11-[address] [facility] DIFFERENTIAL 13:15:00 [id number] TACROLIMUS LEVEL, 2020-11-22 [facility] RANDOM 13:15:00 MAGNESIUM LEVEL 2020-10-24 [facility] 12:13:00 PHOSPHORUS LEVEL 2020-10-24 [facility] 12:13:00 BASIC METABOLIC PANEL 2020-10-[address] [facility] 12:13:00 CBC WITH PLATELET AND 2020-10-[address] [facility] DIFFERENTIAL 12:13:00 [id number] TACROLIMUS LEVEL, 2020-10-24 [facility] RANDOM 12:13:00 MAGNESIUM LEVEL 2020-10-09 Jamar [facility] al 12:11:00 PHOSPHORUS LEVEL 2020-10-09 [facility] 12:11:00 BASIC METABOLIC PANEL 2020-10-[address] [facility] 12:11:00 CBC WITH PLATELET AND 2020-10-[address] [facility] DIFFERENTIAL 12:11:00 [id number] TACROLIMUS LEVEL, 2020-10-[address] [facility] R[facility] 12:11:00 MAGNESIUM LEVEL 2020-09-25 Jamar [facility] al 12:15:00 PHOSPHORUS LEVEL 2020-09-25 [employer] [employer] [facility] matilda 12:15:00 BASIC METABOLIC PANEL 2020-09-[address] [facility] 12:15:00 CBC WITH PLATELET AND 2020-09-[address] [facility] DIFFERENTIAL 12:15:00 [id number] TACROLIMUS LEVEL, 2020-09-25 [facility] RANDOM 12:15:00 MAGNESIUM LEVEL 2020-09-11 Jamar [facility] al 12:04:00 PHOSPHORUS LEVEL 2020-09-11 [facility] 12:04:00 BASIC METABOLIC PANEL 2020-09-[address] [facility] 12:04:00 CBC WITH PLATELET AND 2020-09-11 [facility]heodora[facility] DIFFERENTIAL 12:04:00 [id number] TACROLIMUS LEVEL, 2020-09-11 [facility] RANDOM 12:04:00 MAGNESIUM LEVEL 2020-08-28 [facility] 12:02:00 PHOSPHORUS LEVEL 2020-08-28 [facility] 12:02:00 BASIC METABOLIC PANEL 2020-08-[address] [facility] 12:02:00 CBC WITH PLATELET AND 2020-08-28 [facility]ora[facility] DIFFERENTIAL 12:02:00 [id number] TACROLIMUS LEVEL, 2020-08-28 [facility] RANDOM 12:02:00 MAGNESIUM LEVEL 2020-08-13 [facility] 12:06:00 PHOSPHORUS LEVEL 2020-08-13 Freddywvtheodora [facility] 12:06:00 BASIC METABOLIC PANEL 2020-08-[address] [facility] 12:06:00 CBC WITH PLATELET AND 2020-08-13 [facility]heodora[facility] DIFFERENTIAL 12:06:00 [id number] TACROLIMUS LEVEL, 2020-08-13 [facility] RANDOM 12:06:00 CT CHEST WO CONTRAST 2020-07-25 [facility] 16:57:55 SPIROMETRY PRE AND POST WITH 2020-07-25 Lauren, [facility] BR[facility], DIFFUSION, 15:02:38 LUNG VOLUMES [id number] N 2020-07-25 [facility], [facility] ital (NUCLEOCAPSID PROTEIN) 14:00:00 ANTIBODY CBC WITH PLATELET AND 2020-07-25 [facility], [facility] DIFFERENTIAL 14:00:00 BASIC METABOLIC PANEL 2020-07-25 [facility], [facility] 14:00:00 MAGNESIUM LEVEL 2020-07-25 [facility], [facility] 14:00:00 PHOSPHORUS LEVEL 2020-07-25 [facility], [facility] 14:00:00 [id number] TACROLIMUS LEVEL, 2020-07-25 [facility], [facility] TROUGH 14:00:00 CYTOMEGALOVIRUS BY PCR 2020-07-25 [facility], [facility] 14:00:00 ESTIMATED GFR 2020-07-25 [facility], [facility] 14:00:00 MANUAL DIFFERENTIAL 2020-07-25 [facility], [facility] spital 14:00:00 DONOR SPECIFIC ANTIBODY 2020-07-25 [facility], [facility] 14:00:00 SIX MINUTE WALK W/ PULSE 2020-07-25 [facility] OXIMETRY 13:30:00 MAGNESIUM LEVEL 2020-07-09 [facility] 13:02:00 PHOSPHORUS LEVEL 2020-07-09 [facility] 13:02:00 BASIC METABOLIC PANEL 2020-07-[address] [facility] 13:02:00 CBC WITH PLATELET AND 2020-07-[address] [facility] DIFFERENTIAL 13:02:00 [id number] TACROLIMUS LEVEL, 2020-07-09 [facility] RANDOM 13:02:00 MAGNESIUM LEVEL 2020-06-24 [facility] 13:04:00 PHOSPHORUS LEVEL 2020-06-24 [facility] 13:04:00 BASIC METABOLIC PANEL 2020-06-[address] [facility] 13:04:00 CBC WITH PLATELET AND 2020-06-[address] [facility] DIFFERENTIAL 13:04:00 [id number] TACROLIMUS LEVEL, 2020-06-[address] [facility] R[facility] 13:04:00 XR CHEST 1 VW PORTABLE 2020-06-12 Delta, [facility] 14:20:00 CBC WITH PLATELET AND 2020-06-12 [facility] DIFFERENTIAL 11:30:00 [id number] TACROLIMUS LEVEL, 2020-06-12 [facility] TROUGH 11:30:00 FIBRINOGEN 2020-06-12 [facility]00 MANUAL DIFFERENTIAL 2020-06-12 Val [facility] spital 11:30:00 BASIC METABOLIC PANEL 2020-06-12 [facility] 10:00:00 MAGNESIUM LEVEL 2020-06-[address] [facility] 10:00:00 PHOSPHORUS LEVEL 2020-06-[address] [facility] 10:00:00 C-REACTIVE PROTEIN 2020-06-12 Ye [facility] 10:00:00 INTERLEUKIN 6 2020-06-12 [facility]00 FERRITIN LEVEL 2020-06-12 [facility] 10:00:00 ESTIMATED GFR 2020-06-[address] [facility] 10:00:00 DURABLE MEDICAL EQUIPMENT 2020-06-11 Maribel Sagastume [facility] 19:21:48 CBC WITH PLATELET AND 2020-06-11 [facility] DIFFERENTIAL 08:05:00 BASIC METABOLIC PANEL 2020-06-11 [facility] 08:05:00 MAGNESIUM LEVEL 2020-06-[address] [facility] 08:05:00 PHOSPHORUS LEVEL 2020-06-11 lolly[facility] 08:05:00 [id number] TACROLIMUS LEVEL, 2020-06-11 [facility] TROUGH 08:05:00 C-REACTIVE PROTEIN 2020-06-11 [facility] 08:05:00 INTERLEUKIN 6 2020-06-11 [facility] 08:05[facility]00 FERRITIN LEVEL 2020-06-11 [facility] 08:05:00 FIBRINOGEN 2020-06-11 [facility] 08:05:00 ESTIMATED GFR 2020-06-11 [place] 08:05:00 MANUAL DIFFERENTIAL 2020-06-11 , [facility] spital 08:05:00 XR CHEST 1 VW PORTABLE 2020-06-11 [facility] 01:19:37 VENOUS BLOOD GAS 2020-06-10 [facility] 11:15:00 CBC WITH PLATELET AND 2020-06-10 [facility], [facility] DIFFERENTIAL 11:00:00 MANUAL DIFFERENTIAL 2020-06-10 lolly, [facility] spital 11:00:00 BASIC METABOLIC PANEL 2020-06-10 [facility] 10:00:00 MAGNESIUM LEVEL 2020-06-10 [facility] 10:00:00 PHOSPHORUS LEVEL 2020-06-10 [facility] 10:00:00 [id number] TACROLIMUS LEVEL, 2020-06-10 [facility] TROUGH 10:00:00 FERRITIN LEVEL 2020-06-10 [facility] 10:00:00 INTERLEUKIN 6 2020-06-10 [facility] 10:00:00 C-REACTIVE PROTEIN 2020-06-10 Val [facility] 10:00:00 ESTIMATED GFR 2020-06-[address] [facility] [address] [facility] 10:00:00 TRANSFUSE COVID-19 2020-06-10 Mar [facility] 03:45:00 Sylvain POC GLUCOSE 2020-06-10 MiteshMaribel Hospit al 00:46:00 VENOUS BLOOD GAS 2020-06-10 Maribel [facility] matilda 00:33:00 VENOUS BLOOD GAS 2020-06-09 AhDeanna [facility] matilda 23:07:00 POC GLUCOSE 2020-06-09 Maribel [facility] Hospit al 18:33:00 CBC WITH PLATELET AND 2020-06-09 [facility], [facility] DIFFERENTIAL 11:05:00 BASIC METABOLIC PANEL 2020-06-09 [facility], [facility] 11:05:00 MAGNESIUM LEVEL 2020-06-09 [facility] 11:05:00 PHOSPHORUS LEVEL 2020-06-09 [facility] 11:05:00 [id number] TACROLIMUS LEVEL, 2020-06-09 [facility], [facility] TROUGH 11:05:00 FERRITIN LEVEL 2020-06-09 [facility] 11:05:00 INTERLEUKIN 6 2020-06-09 [facility] 11:05:00 C-REACTIVE PROTEIN 2020-06-09 [facility], [facility] pital 11:05:00 ESTIMATED GFR 2020-06-09 [facility] 11:05:00 MANUAL DIFFERENTIAL 2020-06-09 [facility], [facility] spital 11:05:00 POC GLUCOSE 2020-06-09 Mitesh, [facility] 03:25:00 POC GLUCOSE 2020-06-09 Mitesh, [facility] 00:33:00 POC GLUCOSE 2020-06-08 Mitesh, [facility] 18:44:00 ABO/RH 2020-06-08 Mitesh, [facility] 14:49:00 PREPARE COVID-19 2020-06-08 [facility] 14:49:00 Sylvain POC GLUCOSE 2020-06-08 Mitesh, [facility] 13:28:00 CBC WITH PLATELET AND 2020-06-08 [facility], [facility] DIFFERENTIAL 10:35:00 BASIC METABOLIC PANEL 2020-06-08 [facility], [facility] 10:35:00 MAGNESIUM LEVEL 2020-06-08 [facility] 10:35:00 PHOSPHORUS LEVEL 2020-06-08 [facility] 10:35:00 [id number] TACROLIMUS LEVEL, 2020-06-08 [facility], [facility] TROUGH 10:35:00 FIBRINOGEN 2020-06-08 [facility] 10:35:00 FERRITIN LEVEL 2020-06-08 [facility], [facility] al 10:35:00 INTERLEUKIN 6 2020-06-08 [facility] C-REACTIVE PROTEIN 2020-06-08 [facility], [facility] pital 10:35:00 D-DIMER 2020-06-08 [facility], [facility] al 10:35:00 HEPATIC FUNCTION PANEL 2020-06-08 [facility], [facility] 10:35:00 VANCOMYCIN LEVEL, RANDOM 2020-06-08 [facility], [facility] 10:35:00 ESTIMATED GFR 2020-06-08 [facility], [facility] al 10:35:00 MANUAL DIFFERENTIAL 2020-06-08 [facility], [facility] spital 10:35:00 CT CHEST WO CONTRAST 2020-06-08 [facility], [facility] ospital 01:07:10 RESPIRATORY PATHOGEN PANEL 2020-06-07 [facility] WITH COVID-19 RT-PCR 23:30:00 SYYB-LHGR-UGZ-2 IGG 2020-06-07 [facility], [facility] spital 23:30:00 PREPARE COVID-19 2020-06-07 [facility], [facility] CONVALESCENT PLASMA 23:05:00 COVID-19 ANTI-SPIKE IGG 2020-06-07 [facility] ANTIBODY TITER 22:00:00 ARTERIAL BLOOD GAS 2020-06-07 [facility] pital 21:00:00 XR CHEST 1 VW PORTABLE 2020-06-07 [facility] 20:54:35 BLOOD CULTURE, AEROBIC & 2020-06-07 [facility] ANAEROBIC 20:30:00 CBC WITH PLATELET AND 2020-06-07 [facility] DIFFERENTIAL 20:30:00 BASIC METABOLIC PANEL 2020-06-07 [facility] 20:30:00 ESTIMATED GFR 2020-06-07 [facility]ade[facility] 20:30:00 MANUAL DIFFERENTIAL 2020-06-07 [facility] spital 20:30:00 BLOOD CULTURE, AEROBIC & 2020-06-07 TimmyPaula clement Fede [facility] ANAEROBIC 20:25:00 Plan of Care Planned Activity Planned Date Details Comments Source Future Scheduled 2021-06-02 BREAST CANCER [facility] Test 12:11:14 SCREENING [code = BREAST CANCER SCREENING] Future Scheduled 2021-06-02 COLONOSCOPY SCREENING [facility] Test 12:11:14 [code = COLONOSCOPY SCREENING] Future Scheduled 2021-06-02 SHINGLES VACCINES Method [facility] Test 12:11:14 (#2) [code = SHINGLES VACCINES (#2)] Future Scheduled 2021-06-02 COVID-19 VACCINE (4 - [facility] Test 12:11:14 Booster for Moderna series) [code = COVID-19 VACCINE (4 - Booster for Moderna series)] Future Scheduled 2021-06-02 Screening for [facility] Test 12:11:14 malignant neoplasm of cervix (procedure) [code = 856785201] Encounters Start End Encounter Admission Attending Care Care Encounter Source Date/Time Date/Time Type Type Clinicians Facility Department ID 2022-01-06 Outpatient 3 [id number] [place] [id number] [facility] 11:06:56 [facility] [facility] 2022-01-05 Outpatient 3 [id number] [facility] REF [id number] [facility] 15:10:14 [facility] [place] 2021-03-03 Outpatient Kacey DONOVAN [facility] OPH [id number] Univers 07:41:49 [facility] 2021-03-03 Outpatient Kacey DONOVAN [facility] OPH [id number] Univers 05:15:25 [facility] 2021-03-02 Outpatient VENUS ALPADILLA OPH [id number] Univers 19:24:58 [facility] 2021-03-02 Outpatient Kacey DONOVAN ALPADILLA OPH [id number] Univers 17:41:00 [facility] 2022-06-02 2022-06-02 Outpatient Elective Cash, [facility] [id number] [facility] 09:03:00 09:03:00 07 2022-06-01 2022-06-01 Outpatient Elective Cash, Lynn [facility] JM0 [id number] [facility] 09:00:00 23:59:00 73 2022-04-30 2022-05-01 Outpatient Elective Cash, Lynn [facility] JM0 [id number] [facility] 09:00:00 23:59:00 88 2022-03-29 2022-03-31 Outpatient Elective Cash, Lynn [facility] JM0 [id number] [facility] 09:12:00 23:59:00 94 2022-03-09 2022-03-09 Outpatient TRENTON, [facility] [id number] [place] 00:00:00 00:00:00 JORGE 519 Method i 2022-03-09 2022-03-09 Outpatient CHOWDHURY, [facility] [id number] [place] 00:00:00 00:00:00 JORGE 038 Method i 2022-03-09 2022-03-09 Outpatient CHOWDHURY, [facility] [id number] [place] 00:00:00 00:00:00 JORGE 967 Method i 2022-03-09 2022-03-09 Outpatient CHOWDHURY, [facility] [id number] [place] 00:00:00 00:00:00 JORGE 343 Method i 2022-03-09 2022-03-09 Outpatient CHOWDHURY, [facility] [id number] [place] 00:00:00 00:00:00 JORGE 767 Method i 2022-03-09 2022-03-09 Outpatient CHOWDHURY, [facility] [id number] [place] 00:00:00 00:00:00 JORGE 009 Method i 2022-03-09 2022-03-09 Outpatient CHOWDHURY, [facility] [id number] [place] 00:00:00 00:00:00 JORGE 872 Method i 2022-02-16 2022-02-16 Outpatient GONZALEZ, [facility] [id number] [place] 00:00:00 00:00:00 HERNANDO 053 Method i 2021-11-25 2022-01-22 Inpatient RYANNE, [facility] 021 [id number] [place] 00:00:00 00:00:00 DERRICK [address] 2021-11-06 2021-11-06 Outpatient RAIZEN, [facility] [id number] [place] 00:00:00 00:00:00 WEN [address] 2021-10-27 2021-10-27 Outpatient MODESTA STERN [facility] [id number] [place] 00:00:00 00:00:[address] 2021-10-21 2021-10-21 Outpatient MODESTA STERN [facility] [id number] [place] 00:00:00 00:00:[address] 2021-10-13 2021-10-13 Outpatient MODESTA STERN [facility] [id number] [place] 00:00:00 00:00:[address] 2021-09-01 2021-09-01 Outpatient LOVE, [facility] [id number] [place] 00:00:00 00:00:00 JIHAD [address] 2021-09-01 2021-09-01 Outpatient LOVE, [facility] [id number] [place] 00:00:00 00:00:00 JIHAD [address] 2021-09-01 2021-09-01 Outpatient LOVE, [facility] [id number] [place] 00:00:00 00:00:00 JIHAD [address] 2021-09-01 2021-09-01 Outpatient LOVE, [facility] [id number] [place] 00:00:00 00:00:00 JILELANDD [address] 2021-09-01 2021-09-01 Outpatient TRENTON, [facility] [id number] [place] 00:00:00 00:00:00 JROGE [address] 2021-08-06 2021-08-14 Inpatient PATEL, [facility] [id number] [place] 00:00:00 00:00:00 LUIS ALFREDO [address] 2021-07-23 2021-07-23 Outpatient [facility] [id number] [place] 00:00:00 00:00:[address] 2021-07-22 2021-07-22 Outpatient MODESTA STERN [facility] [id number] [place] 00:00:00 00:00:[address] 2021-07-21 2021-07-21 Outpatient CHOWDHURY, [facility] [id number] [place] 00:00:00 00:00:00 JORGE [address] 2021-07-21 2021-07-21 Outpatient TRENTON, [facility] [id number] [place] 00:00:00 00:00:00 JORGE [address] 2021-07-21 2021-07-21 Outpatient TRENTON, [facility] [id number] [place] 00:00:00 00:00:00 JORGE [address] 2021-07-21 2021-07-21 Outpatient TRENTON, [facility] [id number] [place] 00:00:00 00:00:00 JORGE [address] 2021-07-21 2021-07-21 Outpatient TRENTON, [facility] [id number] [place] 00:00:00 00:00:00 JORGE 746 Method i 2021-07-21 2021-07-21 Outpatient [facility] [id number] [place] 00:00:00 00:00:00 675 Method i 2021-07-16 2021-07-16 Outpatient JAMAR, [facility] 13 [place] 00:00:00 00:00:00 DULCE 496 Method i 2021-07-16 2021-07-16 Outpatient JAMAR, [facility] 13 [place] 00:00:00 00:00:00 DULCE 467 Method i 2021-07-06 2021-07-09 Inpatient DARIN, [facility] [id number] [place] 00:00:00 00:00:00 LUIS 747 Method i 2021-06-13 2021-06-26 Inpatient JORGE, [facility] 012 [id number] 89 [place] 00:00:00 00:00:00 JACINTO 922 Method i 2021-06-01 2021-06-01 Refashley Marquez, 1.2.840.1 [id number] [facility]i 00:00:00 00:00:00 Garfield 87259.1.1 544 3.430.2.7 Hospit a .3.202942 l .8 2021-05-23 2021-05-31 [facility] [id number] [place] [address] 00:00:00 00:00:00 Encounter LUIS ALFREDO [address] 2021-05-26 2021-05-26 Anesthesia Kandace Mccauley 1.2.840.1 [id number] [facility] 14:05:00 14:56:[address] 3.430.2.7 Hospit a .3.010623 l .8 2021-05-26 2021-05-26 Surgery Modesta Stern 1.2.840.1 [id number] 2099 [id number] [facility] 13:30:00 14:30:[address] 3.430.2.7 Hospit a .3.586326 l .8 2021-05-25 2021-05-25 Telephone Sherly, 1.2.840.1 [id number] [facility] 00:00:00 00:00:[address] 3.430.2.7 Hospit a .3.114098 l .8 2021-05-23 2021-05-23 Telephone Michelle, 1.2.840.1 [id number] 2099 [id number] [facility] 00:00:00 00:00:[address] 3.430.2.7 Hospit a .3.241896 l .8 2021-05-21 2021-05-21 Orders Jamar, 1.2.840.1 [id number] 2099 [id number] [facility] 00:00:00 00:00:00 Only Dulce 12154.1.[address] 3.430.2.7 Hospit a .3.536712 l .8 2021-05-19 2021-05-19 Telephone Marquez, 1.2.840.1 [id number] 2099 [id number] [facility] 00:00:00 00:00:[address] 3.430.2.7 Hospit a .3.245533 l .8 2021-05-19 2021-05-19 Documentat Uvaldo, 1.2.840.1 [id number] Methodi 00:00:00 00:00:00 ion Lor 63941.1.[address] 3.430.2.7 Hospit a .3.421769 l .8 2021-05-18 2021-05-18 Orders Kate, 1.2.840.1 [id number] 2099 [id number] [facility] 00:00:00 00:00:00 Only Tosin 83486.1.[address] 3.430.2.7 Hospit a .3.652085 l .8 2021-05-11 2021-05-15 [facility], 1.2.840.1 [id number] [place] 00:00:00 00:00:00 Encounter LUIS ALFREDO 88297.1.1 [address] .3.977914 .8 2021-05-13 2021-05-13 Transcribe Cruzito 1.2.840.1 [id number] 912 [id number] [facility] 00:00:00 00:00:00 Orders Shay, 88438.1.[address] Lauralyn 3.430.2.7 Hospi ta .3.750074 l .8 2021-05-11 2021-05-11 Telephone Jimmy, 1.2.840.1 [id number] 2099 [id number] [facility] 00:00:00 00:00:[address] 3.430.2.7 Hospit a .3.504384 l .8 2021-05-09 2021-05-09 Orders Jamar, 1.2.840.1 [id number] 2099 [id number] [facility] 00:00:00 00:00:00 Only Dulce 56124.1.[address] 3.430.2.7 Hospit a .3.906852 l .8 2021-04-30 2021-04-30 Surgery Maribel Sagastume 1.2.840.1 [id number] 966 [id number] [facility]i 10:30:00 12:00:[address] 3.430.2.7 Hospit a .3.881869 l .8 2021-04-30 2021-04-30 [facility] MARIBEL SAGASTUME [facility] 021 [id number] [place] 00:00:00 00:00:00 Encounter [address] 2021-04-30 2021-04-30 Travel 1.2.840.1 1.2.176.888 2341 [id number] [facility] 00:00:00 00:00:[address] 3.430.2.7 0.2.7.3.698 Ho spita .3.702499 084.8 l .8 2021-04-29 2021-04-29 Outpatient MITESHMARIBEL [facility] [id number] [place] 00:00:00 00:00:[address] 2021-04-29 2021-04-29 Outpatient MITESH, [facility] 2099 [id number] [place] 00:00:00 00:00:[address] 2021-04-29 2021-04-29 Orders Marquez, 1.2.840.1 [id number] 4662 [facility] 00:00:00 00:00:00 Only Garfield 87434.1.[address] 3.430.2.7 Hospit a .3.243349 l .8 2021-04-29 2021-04-29 Orders Marquez, 1.2.840.1 [id number] 6014 [facility] 00:00:00 00:00:00 Only Garfield 01359.1.[address] 3.430.2.7 Hospit a .3.062493 l .8 2021-04-29 2021-04-29 Orders Marquez, 1.2.840.1 [id number] 7383 [facility] 00:00:00 00:00:00 Only Garfield 01987.1.[address] 3.430.2.7 Hospit a .3.117527 l .8 2021-04-28 2021-04-28 Office Mitesh Maribel 1.2.840.1 [id number] 907 [id number] [facility]i 07:03:48 07:18:[address] 3.430.2.7 Hospit a .3.367581 l .8 2021-04-28 2021-04-28 Outpatient MARIBEL SAGASTUME [facility] [id number] [id number] [place] 00:00:00 00:00:[address] 2021-04-28 2021-04-28 [facility] MARIBEL SAGASTUME 1.2.840.1 [id number] [place] 00:00:00 00:00:00 Encounter 20807.1.1 [address] .3.681674 .8 2021-04-28 2021-04-28 [facility] MARIBEL SAGASTUME 1.2.840.1 [id number] [place] 00:00:00 00:00:00 Encounter 45481.1.[address] .3.801883 .8 2021-04-28 2021-04-28 Outpatient [facility] [id number] [place] 00:00:00 00:00:00 JORGE [address] 2021-04-28 2021-04-28 [address] 1.2.840.1 [id number] [facility]i 00:00:00 00:00:00 ion lalitano, 16505.1.[address] Tohana L 3.430.2.7 Hospi ta .3.606709 l .8 2021-04-28 2021-04-28 Travel 1.2.840.1 1.2.259.395 5244 166796 [facility] 00:00:00 00:00:[address] 3.430.2.7 0.2.7.3.698 Ho spita .3.932420 084.8 l .8 2021-04-21 2021-04-21 Telephone Marquez, 1.2.840.1 [id number] 2099 [id number] [facility]i 00:00:00 00:00:[address] 3.430.2.7 Hospit a .3.431551 l .8 2021-04-18 2021-04-18 Orders Jamar, 1.2.840.1 [id number] 2099 [id number] [facility]i 00:00:00 00:00:00 Only Dulce 78839.1.[address] 3.430.2.7 Hospit a .3.119477 l .8 2021-04-16 2021-04-16 Telemedici Mounika, 1.2.840.1 [id number] 939 [id number] Methodi 11:16:35 13:21:57 ne Ezequiel 40236.1.[address] [place] 3.430.2.7 Hosp krystian .3.051625 l .8 2021-04-16 2021-04-16 Documentat Gailhumberto, 1.2.840.1 [id number] 600 [id number] Methodi 00:00:00 00:00:[address]02[address] 3.430.2.7 Hospit a .3.106772 l .8 2021-04-09 2021-04-09 Telephone Jimmy, 1.2.840.1 [id number] 2100 [id number] Methodi 00:00:00 00:00:[address] 3.430.2.7 Hospit a .3.208109 l .8 2021-04-06 2021-04-06 Documentat Uvaldo, 1.2.840.1 [id number] Methodi 00:00:00 00:00:[address] 3.430.2.7 Hospit a .3.332615 l .8 2021-04-06 2021-04-06 Catrachito Chowdhury 1.2.840.1 [id number] 7151 [facility]i 00:00:00 00:00:00 Jorge Rodriguez [address]40.1.[address] 3.430.2.7 Hospit a .3.008826 l .8 2021-04-05 2021-04-05 Catrachito Chowdhury 1.2.840.1 [id number] 4679 Methodi 00:00:00 00:00:00 Jorge Rodriguez 15347.1.[address] 3.430.2.7 Hospit a .3.323974 l .8 2021-04-04 2021-04-04 Rukhsana Roldan 1.2.840.1 [id number] 2099 [id number] Methodi 00:00:00 00:00:00 Only Dulce 02679.1.[address] 3.430.2.7 Hospit a .3.296121 l .8 2021-03-24 2021-03-24 Telephone Marquez, 1.2.840.1 [id number] Methodi 00:00:00 00:00:[address] 3.430.2.7 Hospit a .3.667749 l .8 2021-03-19 2021-03-19 Orders Jamar, 1.2.840.1 [id number] 2099 [id number] Methodi 00:00:00 00:00:00 Only Dulce 83028.1.[address] 3.430.2.7 Hospit a .3.820384 l .8 2021-03-05 2021-03-05 Telephone Marquez, 1.2.840.1 [id number] 2099 [id number] Methodi 00:00:00 00:00:[address] 3.430.2.7 Hospit a .3.853992 l .8 2021-03-03 2021-03-03 Infusion Maribel Sagastume 1.2.840.1 [id number] Methodi 08:48:39 11:48:[address] 3.430.2.7 Hospit a .3.028543 l .8 2021-03-03 2021-03-03 Travel 1.2.840.1 1.2.458.172 3998 189462 Methodi 00:00:00 00:00:[address] 3.430.2.7 0.2.7.3.698 Ho spita .3.610633 084.8 l .8 2021-03-02 2021-03-02 Telephone Harvey, 1.2.840.1 [id number] 2099 [id number] Methodi 00:00:00 00:00:[address] 3.430.2.7 Hospit a .3.534560 l .8 2021-03-01 2021-03-01 Refill Jamar, 1.2.840.1 [id number] 2099 238190 [facility]i 00:00:00 00:00:[address] 3.430.2.7 Hospit a .3.263396 l .8 2021-02-28 2021-02-28 Orders Jamar, 1.2.840.1 [id number] 2099 824150 Methodi 00:00:00 00:00:00 Only Dulce 81809.1.[address] 3.430.2.7 Hospit a .3.357711 l .8 2021-02-26 2021-02-26 Telephone Mounika, 1.2.840.1 [id number] 2099 [id number] Methodi 00:00:00 00:00:[address] [place] 3.430.2.7 Hosp krystian .3.680034 l .8 2021-02-25 2021-02-25 Refill [place], 1.2.840.1 [id number] 897056 9831 Methodi 00:00:00 00:00:00 Jorge Rodriguez 73090.1.[address] 3.430.2.7 Hospit a .3.992852 l .8 2021-02-23 2021-02-23 Telephone Harvey, 1.2.840.1 [id number] 2099 [id number] Methodi 00:00:00 00:00:[address] 3.430.2.7 Hospit a .3.710436 l .8 2021-02-23 2021-02-23 Orders Jimmy, 1.2.840.1 [id number] 867017 7602 [facility]i 00:00:00 00:00:00 Only Garfield 90973.1.[address] 3.430.2.7 Hospit a .3.000737 l .8 2021-02-18 2021-02-18 [facility] 1.2.175.917 1595 6036 [facility] 07:19:00 10:19:00 Ronald Mckeon 350.1.13.10 [place] 403.4869669 [facility] 071 Branch 2021-02-18 2021-02-18 [facility] 1.2.840.114 23299 013 Univers 08:48:00 09:30:00 Terrance Mckeon 350.1.13.10 [place] 131.1540629 [facility] 020 Branch 2021-02-18 2021-02-18 Telephone Marquez, 1.2.840.1 [id number] 2099 [id number] Methodi 00:00:00 00:00:[address] 3.430.2.7 Hospit a .3.610411 l .8 2021-02-16 2021-02-16 Laboratory Only, Adc Test [facility] 1.2.840. 114 [id number] Univers 15:52:15 16:07:15 Only Terrance Donovan 350.1.13.1 0 [place] 270.5243366 [facility] 353 Branch 2021-02-16 2021-02-16 [facility] [id number] 6600 Univers 15:45:00 15:45:00 [facility] 2021-02-16 2021-02-16 [facility] [id number] 3321 Univers 15:45:00 15:45:00 [facility] 2021-02-16 2021-02-16 Orders Doctor GAN 1.2.840.114 [id number] Univers 00:00:00 00:00:00 Only Unassigned, OLIMPIA 350.1.13.10 ity [place] [facility] 4.2.7.2.686 James as [phone] [facility] 009 Branch 2021-02-13 2021-02-13 Orders Jamar 1.2.840.1 [id number] 2099 [id number] Methodi 00:00:00 00:00:00 Only Dulce 03907.1.[address] 3.430.2.7 Hospit a .3.362228 l .8 2021-02-13 2021-02-13 Telephone Marquez, 1.2.840.1 [id number] 2100 [id number] Methodi 00:00:00 00:00:[address] 3.430.2.7 Hospit a .3.985111 l .8 2021-02-13 2021-02-13 Orders Marquez, 1.2.840.1 [id number] 296749 6425 Methodi 00:00:00 00:00:00 Only Garfield 88676.1.[address] 3.430.2.7 Hospit a .3.656501 l .8 2021-02-05 2021-02-05 Orders Marquez, 1.2.840.1 [id number] 838611 9405 Methodi 00:00:00 00:00:00 Only Garfield 97100.1.[address] 3.430.2.7 Hospit a .3.501011 l .8 2021-02-03 2021-02-03 [facility] 1.2.840.1 [id number] 178 [id number] Methodi 14:05:26 23:59:00 Encounter Dulce 25814.1.[address] 3.430.2.7 Hospit a .3.022637 l .8 2021-02-03 2021-02-03 Hospital System, Provider Not In 1.2.840.1 [id number] Methodi 10:12:05 14:04:00 Encounter Dulce Roldan 38237.1.[address] 3.430.2.7 Hospit a .3.729617 l .8 2021-02-03 2021-02-03 Office Mar Aleman 1.2.840.1 1 [id number] Methodi 11:16:25 11:31:25 Visit Maribel Sagastume 29771.1.1 353 [address] t 3.430.2.7 Hospit a .3.747708 l .8 2021-02-03 2021-02-03 [facility], 1.2.840.1 [id number] 652 [id number] Methodi 10:11:42 10:11:42 Encounter Ahmad 49180.1.[address] 3.430.2.7 Hospit a .3.969323 l .8 2021-02-03 2021-02-03 [facility] 1.2.840.1 [id number] 829 [id number] Methodi 09:40:48 10:10:00 Encounter Ahmad 30640.1.[address] 3.430.2.7 Hospit a .3.805382 l .8 2021-02-03 2021-02-03 [facility] 1.2.840.1 [id number] 966 [id number] Methodi 08:05:16 09:39:00 Encounter Ahmad 39652.1.[address] 3.430.2.7 Hospit a .3.087833 l .8 2021-02-03 2021-02-03 Outpatient [facility], [facility] [id number] [place] 00:00:00 00:00:00 AHMAD [address] 2021-02-03 2021-02-03 Outpatient [facility] [id number] 577 [place] 00:00:00 00:00:[address] 2021-02-03 2021-02-03 Orders Jimmy, 1.2.840.1 [id number] [id number] 2794 Methodi 00:00:00 00:00:00 Only [place] 85081.1.[address] 3.430.2.7 Hospit a .3.150100 l .8 2021-02-03 2021-02-03 Orders Jimmy, 1.2.840.1 [id number] 1086 Methodi 00:00:00 00:00:00 Only [place] [address]198.1.[address] 3.430.2.7 Hospit a .3.501066 l .8 2021-02-03 2021-02-03 Refill Jimmy, 1.2.840.1 [id number] 647823 8906 Methodi 00:00:00 00:00:[address] 3.430.2.7 Hospit a .3.914795 l .8 2021-02-03 2021-02-03 Travel 1.2.840.1 1.2.254.128 6121 874142 Methodi 00:00:00 00:00:[address] 3.430.2.7 0.2.7.3.698 Ho spita .3.520325 084.8 l .8 2021-02-02 2021-02-02 Telephone Marquez, 1.2.840.1 [id number] 2099 [id number] Methodi 00:00:00 00:00:[address] 3.430.2.7 Hospit a .3.940424 l .8 2021-02-02 2021-02-02 Documentat Uvaldo, 1.2.840.1 [id number] Methodi 00:00:00 00:00:00 him[address] Hor[address]1.[address] 3.430.2.7 Hospit a .3.314065 l .8 2021-02-02 2021-02-02 Telephone Marquez, 1.2.840.1 [id number] Methodi 00:00:00 00:00:[address] 3.430.2.7 Hospit a .3.914901 l .8 2021-01-30 2021-01-30 Travel 1.2.840.1 1.2.749.864 8256 501185 Methodi 00:00:00 00:00:[address] 3.430.2.7 0.2.7.3.698 Ho spita .3.440783 084.8 l .8 2021-01-29 2021-01-29 HANDY Chang 1.2.840.114 [id number] 66 Univers 00:00:00 00:00:00 (Out) [employer] 350.1.13.10 i ty [facility] 4.2.7.2.686 [facility] [id number] [address] 2021-01-29 2021-01-29 Documentat Mateus-Avteetee 1.2.840.1 [id number] Methodi 00:00:00 00:00:00 hima garcia, 12114.1.[address] [facility] 3.430.2.7 Hospi ta .3.116686 l .8 2021-01-28 2021-01-28 Hospital [facility] 1.2.995.111 6340 5145 Univers 09:30:00 12:47:00 Encounter Terrance Mckeon 350.1.13.10 [facility] [id number] [facility] [address] 2021-01-28 2021-01-28 Surgery [facility] 1.2.840.114 [id number] 131 Univers 11:45:00 12:26:00 Terrance Mckeon 350.1.13.10 [place] 429.3228950 [facility] [address] 2021-01-27 2021-01-27 Laboratory Only, Adc Test [facility] 1.2.840. 114 [id number] Univers 15:54:25 16:09:25 Only Terrance Donovan 350.1.13.1 0 [place] [phone] [facility] [address] 2021-01-27 2021-01-27 Outpatient R [facility] [id number] Univers 15:45:00 15:45:00 ity of [facility] 2021-01-27 2021-01-27 Orders Doctor GAN 1.2.840.114 [id number] Univers 00:00:00 00:00:00 Only Unassigned, OLIMPIA 350.1.13.10 ity of [place] [facility] 4.2.7.2.686 James as [id number] [facility] [address] 2021-01-26 2021-01-26 [id number] Univers 14:45:00 14:45:00 TERRANCE ittri [facility] 2021-01-26 2021-01-26 Telephone Marquez, 1.2.840.1 [id number] 2099 [id number] Methodi 00:00:00 00:00:[address] 3.430.2.7 Hospit a .3.754070 l .8 2021-01-21 2021-01-21 Telephone Marquez, 1.2.840.1 [id number] 2099 753649 Methodi 00:00:00 00:00:[address] 3.430.2.7 Hospit a .3.183705 l .8 2021-01-20 2021-01-20 Telephone Pulling, 1.2.840.1 [id number] 722 [id number] Methodi 00:00:00 00:00:[address] 3.430.2.7 Hospit a .3.449048 l .8 2021-01-20 2021-01-20 Telephone Pulling, 1.2.840.1 [id number] 161 7078771 Methodi 00:00:00 00:00:[address] 3.430.2.7 Hospit a .3.711126 l .8 2021-01-19 2021-01-19 Telephone Pulling, 1.2.840.1 [id number] 083 9770185 Methodi 00:00:00 00:00:[address] 3.430.2.7 Hospit a .3.774550 l .8 2021-01-16 2021-01-16 Outpatient R [facility]EN[facility] [id number] [facility] 11:30:00 11:30:00 TERRANCE alarcon [facility] 2021-01-16 2021-01-16 Maintenance Supervisor Electrical David [facility] 1.2.8 40.114 [id number] Univers 10:56:14 11:11:14 Visit Terrance Donovan 350.1.13.1 0 dorian [facility] 4.2.7.2.686 Lynn andrews Professio [phone] [address] 2021-01-16 2021-01-16 Orders Doctor MALIK 1.2.840.114 [id number] Univers 00:00:00 00:00:00 Only Unassigned, OILMPIA 350.1.13.10 ity of [place] [facility] 4.2.7.2.686 James as [phone] [address] 2021-01-14 2021-01-14 Orders Jamar, 1.2.840.1 [id number] 2100 [id number] Methodi 00:00:00 00:00:00 Only Dulce 52557.1.[address] 3.430.2.7 Hospit a .3.286678 l .8 2021-01-12 2021-01-12 Outpatient [facility]H 00:00:00 00:00:00 [id number] 103 2020-12-30 2020-12-30 Telephone Beaulieu, 1.2.840.1 [id number] 2099 [id number] Methodi 00:00:00 00:00:[address] 3.430.2.7 Hospit a .3.763442 l .8 2020-12-29 2020-12-29 [facility] 182632 9699 Univers 12:15:00 12:15:00 [facility] 2020-12-26 2020-12-26 Infusion Chowdhury, 1.2.840.1 [id number] 89422 15680 Methodi 09:37:25 11:55:17 Jorge Rodriguez 13436.1.[address] 3.430.2.7 Hospit a .3.272497 l .8 2020-12-26 2020-12-26 Outpatient [facility] 061326 1493 Univers 11:15:00 11:15:00 [facility] 2020-12-26 2020-12-26 Travel 1.2.840.1 1.2.864.410 1267 065467 Methodi 00:00:00 00:00:[address] 3.430.2.7 0.2.7.3.698 Ho spita .3.600119 084.8 l .8 2020-12-25 2020-12-25 Orders Chowdhury, 1.2.840.1 [id number] 945862 2567 Methodi 00:00:00 00:00:00 Only Jorge Rodriguez 28085.1.[address] 3.430.2.7 Hospit a .3.801535 l .8 2020-12-24 2020-12-24 Telephone Randolph, 1.2.840.1 [id number] 2100 293754 Methodi 00:00:00 00:00:[address] 3.430.2.7 Hospit a .3.467355 l .8 2020-12-24 2020-12-24 Telephone Sd 1.2.840.1 [id number] Methodi 00:00:00 00:00:00 radha, 52789.1.[address] Jeremya L 3.430.2.7 Hospi ta .3.307053 l .8 2020-12-23 2020-12-23 [facility] [id number] 21 [id number] Methodi 06:51:00 10:46:[address] 3.430.2.7 Hospit a .3.467578 l .8 2020-12-23 2020-12-23 Surgery [facility] Maribel 1.2.840.1 [id number] 030 3153909 Methodi 09:00:00 10:30:[address] 3.430.2.7 Hospit a .3.737808 l .8 2020-12-23 2020-12-23 Telephone Hernan, 1.2.840.1 [id number] 690 [id number] Methodi 00:00:00 00:00:[address] 3.430.2.7 Hospit a .3.519458 l .8 2020-12-23 2020-12-23 Orders Jimmy, 1.2.840.1 [id number] 215590 6628 Methodi 00:00:00 00:00:00 Only Garfield 97207.1.[address] 3.430.2.7 Hospit a .3.157595 l .8 2020-12-23 2020-12-23 Travel 1.2.840.1 1.2.462.705 8376 930064 Methodi 00:00:00 00:00:[address] 3.430.2.7 0.2.7.3.698 Ho spita .3.644216 084.8 l .8 2020-12-22 2020-12-22 Telephone Jimmy, 1.2.840.1 [id number] 2100 385655 Methodi 00:00:00 00:00:[address] 3.430.2.7 Hospit a .3.171233 l .8 2020-12-17 2020-12-17 Travel 1.2.840.1 1.2.604.712 4299 051655 Methodi 00:00:00 00:00:[address] 3.430.2.7 0.2.7.3.698 Ho spita .3.360003 084.8 l .8 2020-12-09 2020-12-16 Office Jorge Chowdhury 1.2.840.1 [id number] 34 [id number] Methodi 09:00:54 09:49:58 Visit Mar Aleman 47401.1.[address] 3.430.2.7 Hospit a .3.071299 l .8 2020-12-16 2020-12-16 Documentat Uvaldo 1.2.840.1 [id number] 21 [id number] Methodi 00:00:00 00:00:00 him[address] Horowitz 70539.1.[address] 3.430.2.7 Hospit a .3.990348 l .8 2020-12-15 2020-12-15 Telephone Inocente, 1.2.840.1 [id number] 21 [id number] Methodi 00:00:00 00:00:[address] 3.430.2.7 Hospit a .3.927990 l .8 2020-12-12 2020-12-12 Travel 1.2.840.1 1.2.851.458 5901 521355 Methodi 00:00:00 00:00:[address] 3.430.2.7 0.2.7.3.698 Ho spita .3.421506 084.8 l .8 2020-12-12 2020-12-12 Telephone Mounika, 1.2.840.1 [id number] 2099 420676 Methodi 00:00:00 00:00:[address] [place] 3.430.2.7 Hosp krystian .3.026432 l .8 2020-12-11 2020-12-11 Orders Jimmy, 1.2.840.1 [id number] 818633 8731 Methodi 00:00:00 00:00:00 Only Garfield 21585.1.[address] 3.430.2.7 Hospit a .3.257225 l .8 2020-12-11 2020-12-11 Orders Jimmy, 1.2.840.1 [id number] 883011 0809 Methodi 00:00:00 00:00:00 Only Garfield 14312.1.[address] 3.430.2.7 Hospit a .3.882759 l .8 2020-12-10 2020-12-10 Telephone Mounika, 1.2.840.1 [id number] 2099 273187 Methodi 00:00:00 00:00:[address] [place] 3.430.2.7 Hosp krystian .3.709735 l .8 2020-12-09 2020-12-09 [facility] Maribel Sagastume 1.2.840.1 [id number] 21 [id number] Methodi 08:14:16 23:59:[address] 3.430.2.7 Hospit a .3.997401 l .8 2020-12-09 2020-12-09 [facility] Maribel Sagastume 1.2.840.1 [id number] 21 [id number] Methodi 07:09:42 08:13:[address] 3.430.2.7 Hospit a .3.857789 l .8 2020-12-09 2020-12-09 Telephone Mcmillan, 1.2.840.1 [id number] Methodi 00:00:00 00:00:[address] 3.430.2.7 Hospit a .3.266854 l .8 2020-12-09 2020-12-09 Orders Marquez, 1.2.840.1 [id number] 336436 1639 Methodi 00:00:00 00:00:00 Only Garfield 09992.1.[address] 3.430.2.7 Hospit a .3.137341 l .8 2020-12-09 2020-12-09 Documentat Cash, 1.2.840.1 [id number] 614 [id number] Methodi 00:00:00 00:00:00 ion Tuyet 88744.1.[address] 3.430.2.7 Hospit a .3.013864 l .8 2020-12-09 2020-12-09 Travel 1.2.840.1 1.2.575.073 0016 842805 Methodi 00:00:00 00:00:[address] 3.430.2.7 0.2.7.3.698 spita .3.850233 084.8 l .8 2020-12-09 2020-12-09 Outpatient MARIBEL SAGASTUME [facility] 2100 332376 [place] 00:00:00 00:00:[address] 2020-12-09 2020-12-09 Outpatient TRENTON [facility] [id number] 588 [place] 00:00:00 00:00:00 JORGE [address] 2020-12-08 2020-12-08 Telephone Jimmy, 1.2.840.1 [id number] 2099 [id number] Methodi 00:00:00 00:00:[address] 3.430.2.7 Hospit a .3.858074 l .8 2020-12-08 2020-12-08 Documentat Inocente, 1.2.840.1 [id number] 2 [id number] Methodi 00:00:00 00:00:[address] 3.430.2.7 Hospit a .3.804220 l .8 2020-12-05 2020-12-05 Orders Jamar, 1.2.840.1 [id number] 2099 358665 Methodi 00:00:00 00:00:00 Only Dulce 13440.1.[address] 3.430.2.7 Hospit a .3.468916 l .8 2020-12-04 2020-12-04 Telemedici Mounika, 1.2.840.1 [id number] 416 4510444 Methodi 13:14:14 13:41:36 dm Ezequiel 76827.1.[address] [place] 3.430.2.7 Hosp krystian .3.141770 l .8 2020-12-01 2020-12-01 Refill Trenton, 1.2.840.1 [id number] 503945 7835 Methodi 00:00:00 00:00:00 Jorge Rodriguez 49874.1.[address] 3.430.2.7 Hospit a .3.912764 l .8 2020-12-01 2020-12-01 Documentat Uvaldo, 1.2.840.1 [id number] 21 [id number] Methodi 00:00:00 00:00:[address]32.1.[address] 3.430.2.7 Hospit a .3.891625 l .8 2020-11-28 2020-11-28 Telephone Praveen, 1.2.840.1 [id number] 2099 221202 Methodi 00:00:00 00:00:[address] 3.430.2.7 Hospit a .3.488562 l .8 2020-11-25 2020-11-25 Telephone Jimmy, 1.2.840.1 [id number] 2099 392495 Methodi 00:00:00 00:00:[address] 3.430.2.7 Hospit a .3.467598 l .8 2020-11-22 2020-11-22 Rukhsana Roldan 1.2.840.1 [id number] 2099 239292 Methodi 00:00:00 00:00:00 Only Dulce 56692.1.[address] 3.430.2.7 Hospit a .3.280587 l .8 2020-11-21 2020-11-21 Telephone Yariel 1.2.840.1 [id number] 2099008 Methodi 00:00:00 00:00:[address] 3.430.2.7 Hospit a .3.944331 l .8 2020-11-07 2020-11-07 Refill Jimmy, 1.2.840.1 [id number] 619899 0615 Methodi 00:00:00 00:00:[address] 3.430.2.7 Hospit a .3.428773 l .8 2020-10-27 2020-10-27 Telephone Yariel 1.2.840.1 [id number] 2099 384737 Methodi 00:00:00 00:00:[address] 3.430.2.7 Hospit a .3.400034 l .8 2020-10-27 2020-10-27 Telephone Yariel 1.2.840.1 [id number] 2099442 Methodi 00:00:00 00:00:[address] 3.430.2.7 Hospit a .3.307466 l .8 2020-10-24 2020-10-24 Rukhsana Roldan 1.2.840.1 [id number] 2099 219877 Methodi 00:00:00 00:00:00 Only Dulce 56992.1.[address] 3.430.2.7 Hospit a .3.237837 l .8 2020-10-13 2020-10-13 Telephone Jimmy, 1.2.840.1 [id number] 2099 594590 Methodi 00:00:00 00:00:[address] 3.430.2.7 Hospit a .3.977204 l .8 2020-10-13 2020-10-13 Telephone Edwar, 1.2.840.1 [id number] 21 [id number] Methodi 00:00:00 00:00:[address] 3.430.2.7 Hospit a .3.891673 l .8 2020-10-09 2020-10-09 Orders Jamar, 1.2.840.1 [id number] 2099 022682 Methodi 00:00:00 00:00:00 Only Dulce 99197.1.[address] 3.430.2.7 Hospit a .3.358554 l .8 2020-10-02 2020-10-02 Telemedici Lauren, 1.2.840.1 [id number] 728 9634206 Methodi 09:52:25 10:09:12 dm Martínez [address]2403.1.[address] 3.430.2.7 Hospit a .3.170254 l .8 2020-09-30 2020-09-30 Telephone Quan, 1.2.840.1 [id number] 995 9011146 Methodi 00:00:00 00:00:[address] 3.430.2.7 Hospit a .3.857269 l .8 2020-09-26 2020-09-26 Orders Jimmy, 1.2.840.1 [id number] 351627 3818 Methodi 00:00:00 00:00:00 Only Garfield 53039.1.[address] 3.430.2.7 Hospit a .3.088787 l .8 2020-09-25 2020-09-25 Rukhsana Roldan, 1.2.840.1 [id number] 2099 681770 Methodi 00:00:00 00:00:00 Only Dulce 78162.1.[address] 3.430.2.7 Hospit a .3.199317 l .8 2020-09-232020-09-[address] 1.2.840.1 851992703 40535370 Methodi 00:00:00 00:00:00 radha, 33381.1.[address] Tohana L 3.430.2.7 Hospi ta .3.849913 l .8 2020-09-16 2020-09-16 Telephone Marquez, 1.2.840.1 [id number] 2099 058102 Methodi 00:00:00 00:00:[address] 3.430.2.7 Hospit a .3.312220 l .8 2020-09-12 2020-09-12 Orders Marquez, 1.2.840.1 [id number] 817355 1449 Methodi 00:00:00 00:00:00 Only Garfield 23968.1.[address] 3.430.2.7 Hospit a .3.324243 l .8 2020-09-11 2020-09-11 Orders Jamar, 1.2.840.1 [id number] 2099 882735 Methodi 00:00:00 00:00:00 Only Ahmad 98429.1.[address] 3.430.2.7 Hospit a .3.557564 l .8 2020-09-05 2020-09-05 Telephone Estuardo, 1.2.840.1 [id number] 246 [id number] Methodi 00:00:00 00:00:[address] 3.430.2.7 Hospit a .3.415113 l .8 2020-09-02 2020-09-02 Telephone Marquez, 1.2.840.1 [id number] 2099 639450 Methodi 00:00:00 00:00:[address] 3.430.2.7 Hospit a .3.484166 l .8 2020-09-01 2020-09-01 Orders Marquez, 1.2.840.1 [id number] 572326 4439 Methodi 00:00:00 00:00:00 Only Garfield 26477.1.[address] 3.430.2.7 Hospit a .3.573635 l .8 2020-08-28 2020-08-28 Orders Jamar, 1.2.840.1 [id number] 2099 846798 Methodi 00:00:00 00:00:00 Only Dulce 51395.1.[address] 3.430.2.7 Hospit a .3.495608 l .8 2020-08-21 2020-08-21 Telemedici Luaren, 1.2.840.1 [id number] 841 9933523 Methodi 09:42:43 09:57:26 [address] Tanya 50818.1.[address] 3.430.2.7 Hospit a .3.126395 l .8 2020-08-21 2020-08-21 Travel 1.2.840.1 1.2.076.835 7177 551917 Methodi 00:00:00 00:00:[address] 3.430.2.7 0.2.7.3.698 spita .3.722488 084.8 l .8 2020-08-14 2020-08-14 Telephone Jimmy, 1.2.840.1 [id number] 2099 128584 Methodi 00:00:00 00:00:[address] 3.430.2.7 Hospit a .3.614805 l .8 2020-08-13 2020-08-13 Orders Jamar, 1.2.840.1 [id number] 2099 128551 Methodi 00:00:00 00:00:00 Only Dulce 50732.1.[address] 3.430.2.7 Hospit a .3.340585 l .8 2020-08-05 2020-08-05 Telephone Edwar, 1.2.840.1 [id number] Methodi 00:00:00 00:00:[address] 3.430.2.7 Hospit a .3.940943 l .8 2020-07-28 2020-07-28 Travel 1.2.840.1 1.2.967.637 9822 391290 Methodi 00:00:00 00:00:[address] 3.430.2.7 0.2.7.3.698 Ho spita .3.451028 084.8 l .8 2020-07-26 2020-07-26 [facility], 1.2.840.1 [id number] 12335 Methodi 19:30:00 23:59:00 Encounter Addison 84575.1.[address] Arsenio 3.430.2.7 Hospit a .3.380919 l .8 2020-07-26 2020-07-26 Refill Pulling, 1.2.840.1 [id number] 43360 Methodi 00:00:00 00:00:[address] 3.430.2.7 Hospit a .3.365003 l .8 2020-07-25 2020-07-25 [facility].840[facility] [id number] [id number] Methodi 10:30:00 23:59:[address] 3.430.2.7 Hospit a .3.781472 l .8 2020-07-25 2020-07-25 [facility] 1.2.840.1 [id number] Methodi 08:30:00 10:29:[address] 3.430.2.7 Hospit a .3.018635 l .8 2020-07-25 2020-07-25 [facility] 2099 [id number] [place] 00:00:00 00:00:[address] 2020-07-25 2020-07-25 Telephone Jimmy, 1.2.840.1 [id number] 2099 [id number] Methodi 00:00:00 00:00:[address] 3.430.2.7 Hospit a .3.054563 l .8 2020-07-25 2020-07-25 Travel 1.2.840.1 1.2.167.646 0975 579414 Methodi 00:00:00 00:00:[address] 3.430.2.7 0.2.7.3.698 Ho spita .3.560457 084.8 l .8 2020-07-24 2020-07-24 Orders Marquez, 1.2.840.1 [id number] 171076 3772 Methodi 00:00:00 00:00:00 Only Garfield 02442.1.[address] 3.430.2.7 Hospit a .3.956066 l .8 2020-07-23 2020-07-23 Telephone Praveen, 1.2.840.1 [id number] 2099 [id number] Methodi 00:00:00 00:00:[address] 3.430.2.7 Hospit a .3.030940 l .8 2020-07-14 2020-07-14 Documentat Marquez, 1.2.840.1 [id number] 163 8069535 Methodi 00:00:00 00:00:00 ion Garfield 96816.1.[address] 3.430.2.7 Hospit a .3.140995 l .8 2020-07-14 2020-07-14 Refill Marquez, 1.2.840.1 361313536 224608 1360 Methodi 00:00:00 00:00:[address] 3.430.2.7 Hospit a .3.550118 l .8 2020-07-11 2020-07-11 Telephone Marquez, 1.2.840.1 [id number] 2099 723224 Methodi 00:00:00 00:00:[address] 3.430.2.7 Hospit a .3.211072 l .8 2020-07-10 2020-07-10 [address] 1.2.840.1 [id number] 78149220 Methodi 00:00:00 00:00:00 ndano, 48883.1.[address] Tohana L 3.430.2.7 Hospi ta .3.510228 l .8 2020-07-10 2020-07-10 Orders Jimmy, 1.2.840.1 [id number] 407102 1983 Methodi 00:00:00 00:00:00 Only Garfield 05583.1.[address] 3.430.2.7 Hospit a .3.142578 l .8 2020-07-10 2020-07-10 Telephone Edwar, 1.2.840.1 [id number] 21 [id number] Methodi 00:00:00 00:00:[address] 3.430.2.7 Hospit a .3.153133 l .8 2020-07-09 2020-07-09 Orders Jamar, 1.2.840.1 [id number] 2100 931426 Methodi 00:00:00 00:00:00 Only Dulce 29866.1.[address] 3.430.2.7 Hospit a .3.833785 l .8 2020-07-09 2020-07-09 Refashley Marquez, 1.2.840.1 [id number] 829684 2237 Methodi 00:00:00 00:00:[address] 3.430.2.7 Hospit a .3.985649 l .8 2020-07-08 2020-07-08 Travel 1.2.840.1 1.2.383.668 6158 061392 Methodi 00:00:00 00:00:[address] 3.430.2.7 0.2.7.3.698 Ho spita .3.531308 084.8 l .8 2020-07-01 2020-07-01 Orders Lauren, 1.2.840.1 [id number] 272050 5915 Methodi 00:00:00 00:00:00 Only Tanya 62691.1.[address] 3.430.2.7 Hospit a .3.507625 l .8 2020-06-27 2020-06-27 Telephone Marquez, 1.2.840.1 [id number] 2099 424356 Methodi 00:00:00 00:00:[address] 3.430.2.7 Hospit a .3.118182 l .8 2020-06-26 2020-06-26 Telemedici Lauren, 1.2.840.1 [id number] 051 3862151 Methodi 08:50:56 09:20:32 ne Tanya [address]2531.1.[address] 3.430.2.7 Hospit a .3.450680 l .8 2020-06-24 2020-06-24 Orders Jamar, 1.2.840.1 [id number] 2099 131138 Methodi 00:00:00 00:00:00 Only Dulce 40370.1.[address] 3.430.2.7 Hospit a .3.591745 l .8 2020-06-20 2020-06-20 Refill Marquez, 1.2.840.1 [id number] 648229 3496 Methodi 00:00:00 00:00:[address] 3.430.2.7 Hospit a .3.476463 l .8 2020-06-19 2020-06-19 Refill Marquez, 1.2.840.1 [id number] 114600 1827 Methodi 00:00:00 00:00:[address] 3.430.2.7 Hospit a .3.004515 l .8 2020-06-19 2020-06-19 Travel 1.2.840.1 1.2.601.988 0989 723193 Methodi 00:00:00 00:00:[address] 3.430.2.7 0.2.7.3.698 Ho spita .3.776671 084.8 l .8 2020-06-17 2020-06-17 Patient Juan, 1.2.840.1 [id number] 506 [id number] Methodi 00:00:00 00:00:00 Outreach Serena 19335.1.[address] 3.430.2.7 Hospit a .3.043319 l .8 2020-06-16 2020-06-16 Patient Juan, 1.2.840.1 [id number] 935 [id number] Methodi 00:00:00 00:00:00 Outreach Serena 05298.1.[address] 3.430.2.7 Hospit a .3.084612 l .8 2020-06-07 2020-06-12 [facility] 1.2.840.1 [id number] Methodi 13:59:00 18:42:00 Encounter Maribel Sagastume 13593.1.[address] 3.430.2.7 Hospit a .3.474654 l .8 2020-06-07 2020-06-07 Travel 1.2.840.1 1.2.675.169 1189 781328 Methodi 00:00:00 00:00:[address] 3.430.2.7 0.2.7.3.698 Ho spita .3.536134 084.8 l .8 2020-06-07 2020-06-07 Telephone Pulling, 1.2.840.1 [id number] 546 [id number] Methodi 00:00:00 00:00:[address] 3.430.2.7 Hospit a .3.951579 l .8 2020-06-06 2020-06-06 Refill Marquez, 1.2.840.1 [id number] 977432 8258 Methodi 00:00:00 00:00:[address] 3.430.2.7 Hospit a .3.710378 l .8 2020-06-05 2020-06-05 Telephone Marquez, 1.2.840.1 [id number] 2100 716888 Methodi 00:00:00 00:00:[address] 3.430.2.7 Hospit a .3.649710 l .8 2020-05-25 2020-05-25 Outpatient GOODARZI, [facility] 57676 29177 [place] 00:00:00 00:00:00 DULCE [address] 2020-03-31 2020-03-31 Outpatient MITESHMARIBEL [facility] 021 2100 315170 [place] 00:00:00 00:00:[address] 2020-03-25 2020-03-25 Outpatient MITESHMARIBEL [facility] 2100 121649 [place] 00:00:00 00:00:[address] 2020-03-25 2020-03-25 Outpatient TRENTON, [facility] [id number] 362 [place] 00:00:00 00:00:00 JORGE [address] 2020-03-25 2020-03-25 Outpatient MITESH, MARIBEL [facility] 2100 [id number] [place] 00:00:00 00:00:[address] 2020-03-25 2020-03-25 Outpatient TRENTON, [facility] [id number] 363 [place] 00:00:00 00:00:00 JORGE [address] 2020-03-25 2020-03-25 Outpatient CHOWDHURY, [facility] [id number] 362 [place] 00:00:00 00:00:00 JORGE [address] 2020-03-25 2020-03-25 Outpatient TRENTON, [facility] [id number] 363 [place] 00:00:00 00:00:00 JORGE [address] 2020-03-24 2020-03-24 Outpatient CHOWDHURY, [facility] [id number] 360 [place] 00:00:00 00:00:00 JORGE [address] 2020-03-24 2020-03-24 Outpatient ERGUN, [facility] [id number] 857 [place] 00:00:00 00:00:00 HANNAH [address] 2020-03-22 2020-03-22 Outpatient GOODARZI, [facility] 54305 42677 [place] 00:00:00 00:00:00 DULCE [address] 2019-12-26 2019-12-26 Outpatient LOVE, [facility] [id number] [place] 00:00:00 00:00:00 MAR [address] [facility] 2019-12-11 2019-12-11 Outpatient CHOWDHURY, [facility] [id number] [place] 00:00:00 00:00:00 JORGE [address] [facility] 2019-12-11 2019-12-11 Outpatient TRENTON, [facility] [id number] [place] 00:00:00 00:00:00 JOREG [address] 2019-12-11 2019-12-11 Outpatient MITESH, MARIBEL [facility] [id number] [place] 00:00:00 00:00:[address] 2019-12-11 2019-12-11 Outpatient TRENTON, [facility] [id number] [place] 00:00:00 00:00:00 JORGE [address] 2019-12-11 2019-12-11 Outpatient TRENTON, [facility] [id number] [place] 00:00:00 00:00:00 JORGE [address] [facility] 2019-12-11 2019-12-11 Outpatient MITESH, MARIBEL [facility] [id number] [place] 00:00:00 00:00:[address] 2019-12-11 2019-12-11 Outpatient TRENTON, [facility] [id number] [place] 00:00:00 00:00:00 JORGE [address] [facility] 2019-11-06 2019-11-06 Outpatient MITESH, [place] [id number] [place] 00:00:00 00:00:[address] [facility] 2019-11-02 2019-11-02 Outpatient Kacey CHANEL, [facility] [id number] [facility] 10:00:00 10:00:00 YADIRA alarcon [facility] 2019-11-01 2019-11-01 Outpatient MITESH, MARIBEL [facility] [id number] [place] 00:00:00 00:00:[address] [facility] 2019-11-01 2019-11-01 Outpatient MITESH, MARIBEL [facility] [id number] [place] 00:00:00 00:00:[address] [facility] 2019-10-23 2019-10-23 Outpatient TRENTON, [facility] [id number] [place] 00:00:00 00:00:00 JORGE [address] [facility] 2019-10-23 2019-10-23 Outpatient TRENTON [facility] [id number] [place] 00:00:00 00:00:00 JORGE [address] [facility] 2019-10-23 2019-10-23 Outpatient MITESH, MARIBEL [facility] [id number] [place] 00:00:00 00:00:[address] [facility] 2019-10-23 2019-10-23 Outpatient CHOWDHURY, [facility] [id number] [place] 00:00:00 00:00:00 JORGE [address] [facility] 2019-10-23 2019-10-23 Outpatient CHOWDHURY, [facility] [id number] [place] 00:00:00 00:00:00 JORGE [address] [facility] 2019-10-10 2019-10-10 Outpatient CHOWDHURY, [facility] [id number] [place] 00:00:00 00:00:00 JORGE [address] [facility] 2019-10-02 2019-10-02 Outpatient Kacey DARÍO [facility] [id number] [facility] 10:00:00 10:00:00 [facility] 2019-09-26 2019-09-26 Outpatient CHOWDHURY, [facility] [id number] [place] 00:00:00 00:00:00 JORGE [address] 2019-09-18 2019-09-18 Outpatient Kacey CHANEL [facility] [id number] [facility] 08:00:00 08:00:00 [facility] 2019-09-12 2019-09-12 Outpatient CHOWDHURY, [facility] [id number] [place] [address] 00:00:00 00:00:00 JORGE [address] [facility] 2019-08-29 2019-08-29 Outpatient CHOWDHURY, [facility] [id number] [place] 00:00:00 00:00:00 JORGE [address] [facility] 2019-08-15 2019-08-15 Outpatient CHOWDHURY, [facility] [id number] [place] [address] 00:00:00 00:00:00 JORGE [address] 2019-08-08 2019-08-08 Outpatient CHOWDHURY, [facility] [id number] [place] 00:00:00 00:00:00 JORGE [address] [facility] 2019-08-01 2019-08-01 Outpatient CHOWDHURY, [facility] [id number] [place] 00:00:00 00:00:00 JORGE [address] [facility] 2019-07-25 2019-07-25 Outpatient CHOWDHURY, [facility] [id number] [place] 00:00:00 00:00:00 JORGE [address] [facility] 2019-07-16 2019-07-16 Outpatient MARIBEL SAGASTUME [place] [id number] [place] 00:00:00 00:00:[address] [facility] 2019-07-13 2019-07-13 Outpatient Kacey CHANEL [facility] [id number] [facility] 09:00:00 09:00:00 YADIRA alarcon of [facility] 2019-07-11 2019-07-11 Outpatient TRENTON, [facility] [id number] [place] 00:00:00 00:00:00 JORGE [address] 2019-07-04 2019-07-04 Outpatient CHOWDHURY, [facility] [id number] [place] 00:00:00 00:00:00 JORGE [address] 2019-06-26 2019-06-26 Outpatient LOVE, [facility] [id number] [place] 00:00:00 00:00:00 MAR [address] [facility] 2019-06-26 2019-06-26 Outpatient LOVE, [facility] [id number] [place] 00:00:00 00:00:00 MAR [address] [facility] 2019-06-26 2019-06-26 Outpatient LOVE, [facility] [id number] [place] 00:00:00 00:00:00 MAR [address] [facility] 2019-06-26 2019-06-26 Outpatient GOODARZI, [facility] [id number] [place] 00:00:00 00:00:00 DULCE [address] 2019-06-26 2019-06-26 Outpatient LOVE, [facility] [id number] [place] 00:00:00 00:00:00 MAR [address] 2019-06-26 2019-06-26 Outpatient LOVE, [facility] [id number] [place] 00:00:00 00:00:00 MAR [address] 2019-06-26 2019-06-26 Outpatient LOVE, [facility] [id number] [place] 00:00:00 00:00:00 MAR [address] [facility] 2019-06-25 2019-06-25 Outpatient LOVE, [facility] [id number] [place] 00:00:00 00:00:00 MAR [address] 2019-05-29 2019-05-29 Outpatient MARIBEL SAGASTUME [facility] [id number] [place] 00:00:00 00:00:[address] 2019-05-29 2019-05-29 Outpatient MARIBEL SAGASTUME [facility] [id number] [place] 00:00:00 00:00:[address] 2019-05-14 2019-05-14 Outpatient JAMAR, [facility] 021 [id number] [place] 00:00:00 00:00:00 DULCE [address] 2019-04-30 2019-04-30 Outpatient TRENTON, [facility] [id number] [place] 00:00:00 00:00:00 JORGE [address] 2019-04-30 2019-04-30 Outpatient CHOWDHURY, [facility] [id number] [place] 00:00:00 00:00:00 JORGE [address] 2019-04-18 2019-04-18 Outpatient JAMAR, [facility] [id number] [place] 00:00:00 00:00:00 GENAD [address] 2019-04-18 2019-04-18 Outpatient JAMAR, [facility] [id number] [place] 00:00:00 00:00:00 GENAD [address] 2019-04-18 2019-04-18 Outpatient MARKZI, [facility] [id number] [place] 00:00:00 00:00:00 DULCE [address] 2019-04-13 2019-04-13 Outpatient TRENTON, [facility] [id number] [place] 00:00:00 00:00:00 JORGE [address] 2019-04-10 2019-04-10 Outpatient CHOWDHURY, [facility] [id number] [place] 00:00:00 00:00:00 JORGE [address] 2019-04-10 2019-04-10 Outpatient CHOWDHURY, [facility] [id number] [place] 00:00:00 00:00:00 JORGE [address] 2019-03-17 2019-04-06 Inpatient CHOWDHURY, [facility] [id number] [place] 00:00:00 00:00:00 JORGE [address] 2019-02-27 2019-03-07 Inpatient PATEL, [facility] [id number] [place] 00:00:00 00:00:00 LUIS ALFREDO [address] 2019-01-29 2019-01-29 Outpatient CHOWDHURY, [facility] [id number] [place] 00:00:00 00:00:00 JORGE [address] [facility] 2018-12-01 2018-12-01 Ancillary Therapist, [facility] [id number] 08:10:56 09:10:56 Visit Adc Eckley [id number] Pulmonary [facility] 4.2.7.2.686 Professio [id number] [address] 2018-11-27 2018-11-27 Ancillary Therapist, [facility] [id number] 09:19:05 10:49:55 Visit Adc Eckley [id number] [facility] [place] 4.2.7.2.686 Professio [id number] [address] 2018-11-24 2018-11-24 Ancillary Therapist, [facility] [id number] 09:03:14 11:56:54 Visit Adc Eckley [id number] Pulmonary [place] 4.2.7.2.686 Professio [id number] [address] 2018-11-24 2018-11-24 Orders Doctor MALIK 1.2.840.114 [id number] 00:00:00 00:00:00 Only Unassigned, [place] [id number] [place] [facility] 4.2.7.2.686 [id number] Results Test Description Test Time Test Comments Results Result Comments Source SARS-CoV-2 (COVID-19) RNA [Presence] in Respiratory sp ecimen by 2021-12-15 02:38:56 ELIJAH with probe detection Test Item Value Reference Range Interpretation Comme nts SARS-CoV-2 (COVID-19) RNA [Presence] in Respiratory specimen by Not detected ELIJAH with probe detection (test code = 99483-9) Whether patient is employed in a healthcare setting (test code = Un known 46271-4) Whether the patient has symptoms related to condition of interest U nknown (test code = 57841-1) Whether the patient was hospitalized for condition of interest Unkn own (test code = 28460-5) Whether the patient was admitted to intensive care unit (ICU) for U nknown condition of interest (test code = 19104-8) Whether patient resides in a congregate care setting (test code = U nknown 22483-5) status (test code = 86467-3) Unknown Date and time of symptom onset (test code = 35336-5) Unknown TABATHA ELDERSARS-CoV-2 (COVID-19) RNA [Presence] in Respiratory specimen by ELIJAH with probe pudpcocri0089-93-63 00:28:58 Test Item Value Reference Range Interpretation Comments SARS-CoV-2 (COVID-19) RNA Not detected [Presence] in Respiratory specimen by ELIJAH with probe detection (test code = 83743-8) Whether patient is employed in a Unknown healthcare setting (test code = 51246-5) Whether the patient has symptoms Unknown related to condition of interest (test code = 87218-9) Whether the patient was Unknown hospitalized for condition of interest (test code = 20846-4) Whether the patient was admitted Unknown to intensive care unit (ICU) for condition of interest (test code = 37883-3) Whether patient resides in a Unknown congregate care setting (test code = 33351-0) status (test code = Unknown 87813-7) Date and time of symptom onset Unknown (test code = 55876-0) TABATHA ELDERSARS-CoV-2 (COVID-19) RNA [Presence] in Respiratory specimen by ELIJAH with probe [id number] 21:39:03 Test Item Value Reference Range Interpretation Comments SARS-CoV-2 (COVID-19) RNA Not detected [Presence] in Respiratory specimen by ELIJAH with probe detection (test code = 49096-5) Whether patient is employed in a Unknown healthcare setting (test code = 07485-0) Whether the patient has symptoms Unknown related to condition of interest (test code = 45150-3) Whether the patient was Unknown hospitalized for condition of interest (test code = 48149-0) Whether the patient was admitted Unknown to intensive care unit (ICU) for condition of interest (test code = 95698-0) Whether patient resides in a Unknown congregate care setting (test code = 16970-9) status (test code = Unknown 07105-6) Date and time of symptom onset Unknown (test code = 92685-0) TABATHA ELDERSARS-CoV-2 (COVID-19) RNA [Presence] in Respiratory specimen by ELIJAH with probe [id number] 19:30:05 Test Item Value Reference Range Interpretation Comments SARS-CoV-2 (COVID-19) RNA Not detected [Presence] in Respiratory specimen by ELIJAH with probe detection (test code = 92403-5) Whether patient is employed in a Unknown healthcare setting (test code = 05795-8) Whether the patient has symptoms Unknown related to condition of interest (test code = 10487-1) Whether the patient was Unknown hospitalized for condition of interest (test code = 88781-4) Whether the patient was admitted Unknown to intensive care unit (ICU) for condition of interest (test code = 68508-0) Whether patient resides in a Unknown congregate care setting (test code = 21373-7) status (test code = Unknown 95136-0) Date and time of symptom onset Unknown (test code = 53193-8) [facility] [id number] 18:14:57 Test Item Value Reference Range Interpretation Comments POC glucose (test code 121 mg/dL 65-99 H Opera tor Name: Allred = 65207-0) ZenaidaDevice I D: [id number] Lab Interpretation Abnormal (test code = 22608-6) [facility] [id number] 00:39:20 Test Item Value Reference Range Interpretation Comments Case number (test code = [id number]) Surgical pathology See link below for report (test code = PDF Lab Report 2255) Result status (test code This is Final Report = [id number]) for [id number] [facility] Center[facility]ung[facility] hrptmvo9072-56-55 12:50:29 Test Item Value Reference Range Interpretation Comments Fungus culture No growth Specimen isolate (test after 4 weeks InformationSp ecimen code = 1441) Source: Bronchi al alveolar lavageSpecimen Site: RML (Right Middle L obe) [facility] CenterFK506 Tacrolimus level, frnijk1904-59-54 16:16:00 Test Item Value Reference Interpretation Comments Range Tacrolimus, highly mcg/L L No defini tive sensitive, LC/MS/MS therapeu tic or toxic (test code = ranges have 54137-1) beenestablished . Optimal blood d rug levels are influencedby ty pe of transplant, pat ient response, time post-transplant , co-administrati on of other drugs, an d drug formulatio n. The following t rough range is a sugg ested guideline: 5.0- 20.0 mcg/L. This fany t was developed and i ts analytical performance characteristics have been determined by [employer]. It has not been cleared or appr joselyn by theA. This assay has been validated pursu ant to the CLIA regulations and is used for clinic al purposes. JÚNIOR (test code = FASTING:YES JÚNIOR) FASTING: YES RAC (test code = Performing RAC) Organization Information: Site ID: IG Name: [facility] Address: [address] [place] [id number] Director: Dr. Srinivasan Lee Lab Interpretation Abnormal (test code = 44464-9) [facility] nybaetl5080-46-40 15:08:34 Test Item Value Reference Interpretation Comments Range Legionella No Legionella Specimen culture isolate isolated. InformationS pecimen (test code = Source: Bronchi al 1656) alveolar lavage Specimen Site: [facility] ([facility] t Middle Lobe) [facility] CenterNocardia fefovbq8096-12-56 21:41:16 Test Item Value Reference Interpretation Comments Range Nocardia culture Streptomyces A Specimen isolate (test code species Informati onSpecimen = 1808) Source: Bronchi al alveolar lavage Specimen Site: [facility] ([facility] t Middle Lobe) Lab Interpretation Abnormal (test code = 90041-3) [facility] CenterEC 12 [id number] 04:01:19 Test Item Value Reference Range Interpretation Comments Ventricular rate (test code = 253) Atrial rate (test code = 255) ND interval (test code = 266) QRSD interval (test code = 260) QT interval (test code = 264) QTC interval (test code = 265) P axis 1 (test code = 267) QRS axis 1 (test code = 268) T wave axis (test code = 270) EKG impression (test Poor data code = 273) quality-Sinus bradycardia-Otherwise normal ECG-In automated comparison with ECG of 28-APR-2021 08:50,-No significant change was found- [facility] WgopdnzvTNQN-IdG-3 (COVID-19) RNA [Presence] in Respiratory specimen by ELIJAH with probe [id number] 00:24:33 Test Item Value Reference Range Interpretation Comments SARS-CoV-2 (COVID-19) RNA Not detected Not-Detected [Presence] in Respiratory specimen by ELIJAH with probe detection (test code = 37345-9) Whether patient is employed in a healthcare setting (test code = 06439-1) Whether the patient has symptoms related to condition of interest (test code = 28939-8) Patient was hospitalized because of this condition (test code = 68123-3) Whether the patient was admitted to intensive care unit (ICU) for condition of interest (test code = 62777-4) Whether patient resides in a congregate care setting (test code = 48416-2) [facility] and [id number] 00:22:00 Test Item Value Reference Range Interpretation Comments ABO grouping (test code = 883-9) B Rh type (test code = 67524-2) POS Antibody screen (gel) (test code = NEG 890-4) [facility] ZcwwmqijNUMH-MuA-9 (COVID-19), RT-PCR/BTP4810-97-26 17:21:35 Test Item Value Reference Interpretation Comments Range SARS-CoV-2 NEGATIVE SEE NOTE SARS-CoV-2 RNA NOT INTERPRETATION DETECTEDNegat elizabeth (test code = 65236) results do not preclude SARS-C oV-2 infection and s hould notbe used as t he sole basis for patie nt management deci sions. Negativeresults must be combined wit h clinical observ ations, patient history ,and epidemiological information. Op timum specimen types and timingfor peak viral levels during infections caus ed by SARS-CoV-2 have notbeen determi carla. Collection of m ultiple specimens or ty pes ofspecimens may be necessary to de tect virus. Improper specimencollect ion and handling, seque nce variability und er primers/probes, or organism presen t below the limit of de tection may lead to falsenegative r esults. Positive and ne gative predictive valu es oftesting are h ighly dependent on prevalence. Fal se negative testre sults are more likely when prevalence is h igh. SOURCE (test code = NASOPHARYNGEAL Note: [place] [address]) Gurwinder Vianey Deann l-Time RT-PCR. The exp ected result or refer ence range is NEGATI VE (Not Detected). For more information reg arding COVID-19 testin g to include clinicalinforma tion, methodology det ail, intended use, F DA authorization andrecommended fact sheets for maya ents or healthcare prov iders, see NewTest Announcement: SARS-CoV-2 (COV ID-19) by NAAT at URL below (note,fact shee ts are provided by met hod given in report:https:// www.[employer]/clinic ians/cl ient-communicat ions/ Alternatively, see downloadable PD F fact sheet at:https://www. Hotlist/COVID-19-R T-PCR UNLESS OTHERWIS E INDICATED, ALL TESTING PERFORMED [facility], [address] DIRECTOR: LURDES HERRERA M.D. CLIA NUMBER [id number] CAP ACCREDITATION N O. [id number] Fungus [id number] 19:01:07 Test Item Value Reference Range Interpretation Comments Fungus smear No fungi Specimen (test code = observed. InformationSpec imen Source: 1443) Bronchial alveo lar lavageSpecimen Site: [facility] (Right Middle L obe) [facility] CenterAFB [id number] 17:36:53 Test Item Value Reference Range Interpretation Comments AFB stain No acid fast Specimen (test code = bacilli (AFB) InformationSpe [facility] 676-7) seen. Source: Bronchi al alveolar lavageSpecimen Site: [facility] (Right Middle L obe) [facility] CenterRespiratory [id number] 14:05:27 Test Item Value Reference Range Interpretation Comments Respiratory Normal oral Specimen culture isolate joanne InformationS pecimen (test code = isolated. Source: Bronchi al 42359-5) alveolar lavage Specimen Site: [facility] (Righ t Middle Lobe) [facility] CenterCytology (non-gynecological) [id number] 20:19:16 Test Item Value Reference Range Interpretation Comments Case number (test [id number] code = [id number]) Cytology See link below for PDF (non-gynecological) Lab Report report (test code = 1178) Result status (test This is Supplemental code = 3544207) Report for [id number] [facility] CenterGram [id number] 08:14:58Gram stain isolateRare WBC'sFew Gram positive cocci in pairs Comment: Specimen InformationSpecimen Source: Bronchial alveolar lavageSpecimen Site: RML (Right Middle Lobe) [facility] RNA [Presence] in Respiratory specimen by ELIJAH with probe [id number] 00:07:39 Test Item Value Reference Range Interpretation Comments SARS-CoV-2 (COVID-19) RNA Not detected Not-Detected [Presence] in Respiratory specimen by ELIJAH with probe detection (test code = 23309-5) Whether patient is employed in a healthcare setting (test code = 83034-9) Whether the patient has symptoms related to condition of interest (test code = 06016-7) Patient was hospitalized because of this condition (test code = 66634-7) Whether the patient was admitted to intensive care unit (ICU) for condition of interest (test code = 05264-7) Whether patient resides in a congregate care setting (test code = 23476-4) [facility] RNA [Presence] in Respiratory specimen by ELIJAH with probe [id number] 19:28:01 Test Item Value Reference Range Interpretation Comments SARS-CoV-2 (COVID-19) RNA Not detected Not-Detected [Presence] in Respiratory specimen by ELIJAH with probe detection (test code = 44692-7) Whether patient is employed in a healthcare setting (test code = 70620-3) Whether the patient has symptoms related to condition of interest (test code = 31868-4) Patient was hospitalized because of this condition (test code = 45870-4) Whether the patient was admitted to intensive care unit (ICU) for condition of interest (test code = 53029-4) Whether patient resides in a congregate care setting (test code = 82360-3) [facility]KEOIXSVbgrhugihe1264-32-34 13:45:51 Test Item Value Reference Range Interpretation Comments FEV1 Pre (test code = 5348) 1.62 L 1.77-2.86 FVC Pre (test code = 5354) 2.17 L 2.36-3.66 FEV1/FVC % Pre (test code = 5361) 74.81 % 67.84-87.43 FEF 25-75% Pre (test code = 5547) 1.19 L/s 0.99-3.31 PEF Pre (test code = 5367) 5.47 L/s 4.27-7.48 FEV1 Predicted (test code = 5302) FEV1 LLN (test code = 5347) FEV1 % Pre of Predicted (test code = 70.1 % 5308) FVC Predicted (test code = 5307) FVC LLN (test code = 5353) FVC % Pre of Predicted (test code = 72.1 % 5355) FEV1/FVC % Predicted (test code = 5359) FEV1/FVC % LLN (test code = 5360) FEV1/FVC % Pre of Predicted (test 96.4 % code = 5362) FEF 25-75% Predicted (test code = 5546) FEF 25-75% LLN (test code = 5545) FEF 25-75% % Pre of Predicted (test 55.6 % code = 5548) PEF Predicted (test code = 5310) PEF LLN (test code = 5366) PEF % Pre of Predicted (test code = 93 % 5368) [facility] CenterAFB [id number] 05:13:42 Test Item Value Reference Range Interpretation Comments AFB culture No growth Specimen isolate (test after 6 weeks InformationSp ecimen code = 543-9) of Source: Bronch ial alveolar incubation. lavageSpecimen Site: RML (Right Middle L obe) [facility] w/ pulse [id number] 13:41:26 Test Item Value Reference Range Interpretation Comments Six Minute Walk Distance (ft) (test Feet code = 7665) Six Minute Walk Distance (m) (test 440 m 363.11-641.11 code = 7614) SP02 at Rest (test code = 7617) 100 % Heart Rate at Rest (test code = 60 1/min 7615) Supplemental O2 During Rest (test 0 L/min code = 7624) BP Systolic at Rest (test code = mmHg 7622) BP Diastolic at Rest (test code = mmHg 7623) Slade Dyspnea Scale at Rest (test code = 7619) Lowest SpO2 (test code = 7618) 95 % Highest Heart Rate (test code = 79 1/min 7616) Lap Count (test code = 7625) Number of Stops (test code = 7626) Gait Speed (test code = 7627) sec Lap Distance in meters (test code = 40 m 7620) SP02 at after 1 minute (test code = 98 % 7630) Heart Rate after 1 minute (test code 68 1/min = 7629) Supplemental O2 after 1 minute (test 0 L/min code = 7634) SP02 at after 2 minutes (test code = 98 % 7636) Heart Rate after 2 minutes (test 71 1/min code = 7635) Supplemental O2 after 2 minutes 0 L/min (test code = 7640) SP02 at after 3 minutes (test code = 95 % 7642) Heart Rate after 3 minutes (test 70 1/min code = 7641) Supplemental O2 after 3 minutes 0 L/min (test code = 7646) SP02 at after 4 minutes (test code = 96 % 7648) Heart Rate after 4 minutes (test 70 1/min code = 7647) Supplemental O2 after 4 minutes 0 L/min (test code = 7652) SP02 at after 5 minutes (test code = 95 % 7654) Heart Rate after 5 minutes (test 75 1/min code = 7653) Supplemental O2 after 5 minutes 0 L/min (test code = 7658) SP02 at after 6 minutes (test code = 95 % 7660) Heart Rate after 6 minutes (test 79 1/min code = 7659) Supplemental O2 after 6 minutes 0 L/min (test code = 7664) BP Systolic after 6 minutes (test mmHg code = 7662) BP Diastolic after 6 minutes (test mmHg code = 7663) Slade Dyspnea Scale after 6 minutes (test code = 7661) Six Minute Walk Distance Predicted (test code = 5645) Six Minute Walk Distance % Predicted 87.6 % (test code = 5646) [facility] HospitalSpirom[facility], diffusion, lung [id number] 13:08:49 Test Item Value Reference Range Interpretation Comments FEV1 Pre (test code = 1.66 L 1.77-2.89 5348) FVC Pre (test code = 2.25 L 2.30-3.62 5354) FEV1/FVC % Pre (test 73.92 % 69.33-87.96 code = 5361) FEF 25-75% Pre (test 1.16 L/s 1.07-3.56 code = 5547) PEF Pre (test code = 5.6 L/s 3.82-7.59 5367) DLCO Pre (test code = See_Comment [Auto mated message] 5435) The system [employer] generated this result transmitted ref erence range: 14.19 - 27.19 ml/(min*mmHg). The reference range was not used to interpr et this result as normal/abnormal . DLCOc Pre (test code = See_Comment [Aut omated message] 5430) The system [employer] generated this result transmitted ref erence range: 14.19 - 27.19 ml/(min*mmHg). The reference range was not used to interpr et this result as normal/abnormal . DL/VA Pre (test code = See_Comment [Aut omated message] 5430) The system [employer] generated this result transmitted ref erence range: 3.20 - 5 .84 ml/(min*mmHg*L) . The reference range was not used to interpr et this result as normal/abnormal . KCOc SB Pre (test code See_Comment [Aut omated message] = 5535) The system [employer] generated this result transmitted ref erence range: 3.20 - 5 .84 ml/(min*mmHg*L) . The reference range was not used to interpr et this result as normal/abnormal . VA SB Pre (test code = 2.63 L 3.63-5.84 5444) Hb Pre (test code = g(Hb)/dL 5540) VC Pre (test code = 2.26 L 2.30-3.62 5374) ERV Pre (test code = 0.59 L 0.76-0.76 5381) FRCpl Pre (test code = 1.9 L 1.77-3.41 5388) IC Pre (test code = 1.67 L 1.83-1.83 5395) RV Pre (test code = 1.31 L 1.25-2.40 5402) RV % TLC Pre (test 36.68 % 30.11-49.29 code = 5409) TLC Pre (test code = 3.57 L 3.62-5.59 5416) Raw Pre (test code = See_Comment [Autom ated message] 5507) The system [employer] generated this result transmitted ref erence range: 3.06 - 3 .06 cmH2O*s/L. The reference range was not used to interpr et this result as normal/abnormal . R0.5IN Pre (test code See_Comment [Auto mated message] = 5514) The system [employer] generated this result transmitted ref erence range: 3.06 - 3 .06 cmH2O*s/L. The reference range was not used to interpr et this result as normal/abnormal . sR0.5IN Pre (test code cmH2O*s = 5521) sGaw Predicted (test See_Comment [Autom ated message] code = 5528) The system [employer] generated this result transmitted ref erence range: 0.10 - 0 .10 1/(cmH2O*s). Th e reference range was not used to interpr et this result as normal/abnormal . FEV1 Predicted (test code = 5302) FEV1 LLN (test code = 5347) FEV1 % Pre of 71.3 % Predicted (test code = 5308) FVC Predicted (test code = 5307) FVC LLN (test code = 5353) FVC % Pre of Predicted 75.9 % (test code = 5355) FEV1/FVC % Predicted (test code = 5359) FEV1/FVC % LLN (test code = 5360) FEV1/FVC % Pre of 94 % Predicted (test code = 5362) FEF 25-75% Predicted (test code = 5546) FEF 25-75% LLN (test code = 5545) FEF 25-75% % Pre of 49.9 % Predicted (test code = 5548) PEF Predicted (test code = 5310) PEF LLN (test code = 5366) PEF % Pre of Predicted 98.2 % (test code = 5368) VC Predicted (test code = 5372) VC LLN (test code = 5373) VC % Pre of Predicted 76.4 % (test code = 5375) ERV Predicted (test code = 5379) ERV LLN (test code = 5380) ERV % Pre of Predicted 77.8 % (test code = 5382) FRCpl % Predicted (test code = 5386) FRCpl % LLN (test code = 5387) FRCpl % Pre of 73.5 % Predicted (test code = 5389) IC Predicted (test code = 5393) IC LLN (test code = 5394) IC % Pre of Predicted 91.1 % (test code = 5396) RV Predicted (test code = 5400) RV LLN (test code = 5401) RV % Pre of Predicted 71.8 % (test code = 5403) RV % TLC Predicted (test code = 5407) RV % TLC LLN (test code = 5408) RV % TLC % Pre of 92.4 % Predicted (test code = 5410) TLC Predicted (test code = 5414) TLC LLN (test code = 5415) TLC % Pre of Predicted 77.6 % (test code = 5417) Raw Predicted (test code = 5505) Raw LLN (test code = 5506) Raw % Pre of Predicted 145.9 % (test code = 5508) R0.5IN Predicted (test code = 5512) R0.5IN LLN (test code = 5513) R0.5IN % Pre of 107.4 % Predicted (test code = 5515) sGaw Predicted (test code = 5526) sGaw LLN (test code = 5527) sGaw % Pre of 93 % Predicted (test code = 5529) DLCO Predicted (test code = 5421) DLCO LLN (test code = 5422) DLCO % Pre of 35.3 % Predicted (test code = 5424) DLCOc Predicted (test code = 5428) DLCOc LLN (test code = 5429) DLCOc % Pre of 41.3 % Predicted (test code = 5431) DL/VA Predicted (test code = 5435) DL/VA LLN (test code = 5436) DL/VA % Pre of 61.6 % Predicted (test code = 5438) KCOc SB Predicted (test code = 5533) KCOc SB LLN (test code = 5534) KCOc SB % Pre of 72 % Predicted (test code = 5536) VA SB Predicted (test code = 5442) VA SB LLN (test code = 5443) VA SB % Pre of 55.5 % Predicted (test code = 5445) Nelson TraceyARS-CoV-2 (COVID-19) RNA [Presence] in Respiratory specimen by ELIJAH with probe [id number] 12:03:31 Test Item Value Reference Range Interpretation Comments SARS-CoV-2 (COVID-19) RNA Not detected Not-Detected [Presence] in Respiratory specimen by ELIJAH with probe detection (test code = 40641-9) Whether patient is employed in a healthcare setting (test code = 75340-4) Whether the patient has symptoms related to condition of interest (test code = 35122-9) Patient was hospitalized because of this condition (test code = 76167-9) Whether the patient was admitted to intensive care unit (ICU) for condition of interest (test code = 12796-6) Whether patient resides in a congregate care setting (test code = 33681-3) TABATHA BOSCH cell count and [id number] 19:01:34 Test Item Value Reference Range Interpretation Comments BAL specimen source RML (test code = 55036-3) BAL cell count (test 0.025 m/mL Normal ranges: code = 16371-6) Nonsmokers: 0.007 - 0.363 Smokers: 0 - 1.31 Viability = 71% BAL PAMS (test code = 55 % Normal ranges: 29262-0) Nonsmokers: 65 - 100 Smokers: 81 - 100Microorganis ms present BAL PMNS (test code = 40 % Normal ranges: 9306-2) Nonsmokers: 0 - 3 Smokers: 0 - 2 BAL eosinophils (test 1 % Normal ranges: code = 52574-4) Nonsmokers: 0 - 1 Smokers: 0 - 1 BAL lymphs (test code = 4 % Norm al ranges: 94971-8) Nonsmokers: 0 - 10 Smokers: 0 - 5 Yarsanism [id number] 12:16:55 Test Item Value Reference Range Interpretation Comments FEV1 Pre (test code = 5348) 1.59 L 1.77-2.89 FVC Pre (test code = 5354) 2.19 L 2.30-3.62 FEV1/FVC % Pre (test code = 5361) 72.47 % 69.33-87.96 FEF 25-75% Pre (test code = 5547) 1.02 L/s 1.07-3.56 PEF Pre (test code = 5367) 5.29 L/s 3.82-7.59 FEV1 Predicted (test code = 5302) FEV1 LLN (test code = 5347) FEV1 % Pre of Predicted (test code = 68.2 % 5308) FVC Predicted (test code = 5307) FVC LLN (test code = 5353) FVC % Pre of Predicted (test code = 74.1 % 5355) FEV1/FVC % Predicted (test code = 5359) FEV1/FVC % LLN (test code = 5360) FEV1/FVC % Pre of Predicted (test 92.1 % code = 5362) FEF 25-75% Predicted (test code = 5546) FEF 25-75% LLN (test code = 5545) FEF 25-75% % Pre of Predicted (test 44 % code = 5548) PEF Predicted (test code = 5310) PEF LLN (test code = 5366) PEF % Pre of Predicted (test code = 92.7 % 5368) [facility], diffusion, lung [id number] 15:02:38 Test Item Value Reference Range Interpretation Comments FEV1 Post (test code = 1.5 L 1.77-2.89 5349) FEV1/FVC % Post (test 75 % 69.33-87.96 code = 5363) FVC Post (test code = 2 L 2.30-3.62 5356) PEF Post (test code = 5.6 L/s 3.82-7.59 5369) FEF 25-75% Post (test 1.1 L/s 1.07-3.56 code = 5549) FEV1 Pre (test code = 1.48 L 1.77-2.89 5348) FEV1/FVC % Pre (test 73.9 % 69.33-87.96 code = 5361) FVC Pre (test code = 2.01 L 2.30-3.62 5354) PEF Pre (test code = 5.52 L/s 3.82-7.59 5367) FEF 25-75% Pre (test 1.03 L/s 1.07-3.56 code = 5547) DLCO Pre (test code = See_Comment [Auto mated message] 6266) The system [employer] generated this result transmitted ref erence range: 14.19 - 27.19 ml/(min*mmHg). The reference range was not used to interpr et this result as normal/abnormal . DL/VA Pre (test code = See_Comment [Aut omated message] 5437) The system [employer] generated this result transmitted ref erence range: 3.20 - 5 .84 ml/(min*mmHg*L) . The reference range was not used to interpr et this result as normal/abnormal . VA SB Pre (test code = 2.68 L 3.63-5.84 5444) DLCOc Pre (test code = See_Comment [Aut omated message] 5430) The system [employer] generated this result transmitted ref erence range: 14.19 - 27.19 ml/(min*mmHg). The reference range was not used to interpr et this result as normal/abnormal . [facility] SB Pre (test code See_Comment [Aut omated message] = 5535) The system [employer] generated this result transmitted ref erence range: 3.20 - 5 .84 ml/(min*mmHg*L) . The reference range was not used to interpr et this result as normal/abnormal . Hb Pre (test code = g(Hb)/dL 5540) R0.5IN Pre (test code See_Comment [Auto mated message] = 5514) The system [employer] generated this result transmitted ref erence range: 3.06 - 3 .06 cmH2O*s/L. The reference range was not used to interpr et this result as normal/abnormal . FRCpl Pre (test code = 1.56 L 1.77-3.41 5388) RV Pre (test code = 1.23 L 1.25-2.40 5402) TLC Pre (test code = 3.2 L 3.62-5.59 5416) RV % TLC Pre (test 38.46 % 30.11-49.29 code = 5409) VC Pre (test code = 1.97 L 2.30-3.62 5374) ERV Pre (test code = 0.33 L 0.76-0.76 5381) IC Pre (test code = 1.64 L 1.83-1.83 5395) sR0.5IN Pre (test code cmH2O*s = 5521) Raw Pre (test code = See_Comment [Autom ated message] 5507) The system [employer] generated this result transmitted ref erence range: 3.06 - 3 .06 cmH2O*s/L. The reference range was not used to interpr et this result as normal/abnormal . sGaw Predicted (test See_Comment [Autom ated message] code = 5528) The system [employer] generated this result transmitted ref erence range: 0.10 - 0 .10 1/(cmH2O*s). Th e reference range was not used to interpr et this result as normal/abnormal . FEV1 Predicted (test code = 5302) FEV1 LLN (test code = 5347) FEV1 % Pre of 63.7 % Predicted (test code = 5308) FEV1 % Post of 64.6 % Predicted (test code = 5350) FEV1 % Change (test 1.4 % code = 5351) FVC Predicted (test code = 5307) FVC LLN (test code = 5353) FVC % Pre of Predicted 67.8 % (test code = 5355) FVC % Post of 67.8 % Predicted (test code = 5357) FVC % Change (test -0.1 % code = 5358) FEV1/FVC % Predicted (test code = 5359) FEV1/FVC % LLN (test code = 5360) FEV1/FVC % Pre of 94 % Predicted (test code = 5362) FEV1/FVC % Post of 95.4 % Predicted (test code = 5364) FEV1/FVC % Change 1.5 % (test code = 5365) FEF 25-75% Predicted (test code = 5546) FEF 25-75% LLN (test code = 5545) FEF 25-75% % Pre of 44.6 % Predicted (test code = 5548) FEF 25-75% % Post of 47.6 % Predicted (test code = 5550) FEF 25-75% % Change 6.9 % (test code = 5551) PEF Predicted (test code = 5310) PEF LLN (test code = 5366) PEF % Pre of Predicted 96.8 % (test code = 5368) PEF % Post of 98.1 % Predicted (test code = 5370) PEF % Change (test 1.4 % code = 5371) VC Predicted (test code = 5372) VC LLN (test code = 5373) VC % Pre of Predicted 66.6 % (test code = 5375) ERV Predicted (test code = 5379) ERV LLN (test code = 5380) ERV % Pre of Predicted 42.9 % (test code = 5382) FRCpl % Predicted (test code = 5386) FRCpl % LLN (test code = 5387) FRCpl % Pre of 60.2 % Predicted (test code = 5389) IC Predicted (test code = 5393) IC LLN (test code = 5394) IC % Pre of Predicted 89.7 % (test code = 5396) RV Predicted (test code = 5400) RV LLN (test code = 5401) RV % Pre of Predicted 67.4 % (test code = 5403) RV % TLC Predicted (test code = 5407) RV % TLC LLN (test code = 5408) RV % TLC % Pre of 96.9 % Predicted (test code = 5410) TLC Predicted (test code = 5414) TLC LLN (test code = 5415) TLC % Pre of Predicted 69.5 % (test code = 5417) Raw Predicted (test code = 5505) Raw LLN (test code = 5506) Raw % Pre of Predicted 193.4 % (test code = 5508) R0.5IN Predicted (test code = 5512) R0.5IN LLN (test code = 5513) R0.5IN % Pre of 121.9 % Predicted (test code = 5515) sGaw Predicted (test code = 5526) sGaw LLN (test code = 5527) sGaw % Pre of 93.5 % Predicted (test code = 5529) DLCO Predicted (test code = 5421) DLCO LLN (test code = 5422) DLCO % Pre of 34.5 % Predicted (test code = 5424) DLCOc Predicted (test code = 5428) DLCOc LLN (test code = 5429) DLCOc % Pre of 39.6 % Predicted (test code = 5431) DL/VA Predicted (test code = 5435) DL/VA LLN (test code = 5436) DL/VA % Pre of 59.1 % Predicted (test code = 5438) [facility] SB Predicted (test code = 5533) [facility] SB LLN (test code = 5534) [facility] SB % Pre of 67.7 % Predicted (test code = 5536) VA SB Predicted (test code = 5442) VA SB LLN (test code = 5443) VA SB % Pre of 56.5 % Predicted (test code = 5445) Nelson TraceyARS-CoV-2 (COVID-19) IgG+IgM Ab [Presence] in Serum or Plasma by [id number] 12:33:00 Test Item Value Reference Range Interpretation Comments SARS-CoV-2 (COVID-19) IgG+IgM Ab Positive [Presence] in Serum or Plasma by Immunoassay (test code = 18231-5) TABATHA MAGUIRERS-CoV-2 (COVID-19) IgG Ab [Presence] in Serum or Plasma by [id number] 12:33:00 Test Item Value Reference Range Interpretation Comments SARS-CoV-2 (COVID-19) IgG Ab Positive [Presence] in Serum or Plasma by Immunoassay (test code = 09893-6) TABATHA DAMON [facility] Oxygen Concentrator with Portability, Adult, Standard Liter Flow..2020-06-12 16:10:00 Test Item Value Reference Range Interpretation Comments SUPPLIER NAME (test [employer] ([place]) code = 6415) SUPPLIER PHONE (test [phone] code = 6416) ORDER STATUS (test code Delivery Successful = 6417) DELIVERY NOTE (test code = 6419) REQUESTED DELIVEY DATE 06/11/2020 (test code = 6420) ITEM DESCRIPTION (test Portable Tank with Qty: 1 code = 6423) Conserving Device EXPECTED DELIVERY DATE 06/12/2020 (test code = 6421) ACTUAL DELIVERY DATE 06/12/2020 (test code = 6422) Nelson Seymour-CoV-2 (COVID-19) IgG Ab [Presence] in Serum or Plasma by [id number] 08:53:00 Test Item Value Reference Range Interpretation Comments SARS-CoV-2 (COVID-19) IgG Ab Not detected [Presence] in Serum or Plasma by Immunoassay (test code = 66345-1) TABATHA CUELLAR-CoV-2 (COVID-19) RNA [Presence] in Respiratory specimen by ELIJAH with probe [id number] 17:53:17 Test Item Value Reference Range Interpretation Comments SARS-CoV-2 (COVID-19) RNA Not detected Not-Detected [Presence] in Respiratory specimen by ELIJAH with probe detection (test code = 91498-7) TABATHA ELDERSARS-CoV-2 (COVID-19) RNA [Presence] in Respiratory specimen by ELIJAH with probe [id number] 20:19:25 Test Item Value Reference Range Interpretation Comments SARS-CoV-2 (COVID-19) RNA Not detected Not-Detected [Presence] in Respiratory specimen by ELIJAH with probe detection (test code = 30944-8) TABATHA MAGUIRERS-CoV-2 (COVID-19) RNA [Presence] in Respiratory specimen by ELIJAH with probe [id number] 21:49:54 Test Item Value Reference Range Interpretation Comments SARS-CoV-2 (COVID-19) RNA Not detected Not-Detected [Presence] in Respiratory specimen by ELIJAH with probe detection (test code = 26310-3) TABATHA CUELLAR coronavirus 2 RNA [Presence] in Respiratory specimen by ELIJAH with probe [id number] 06:37:07 Test Item Value Reference Range Interpretation Comments SARS coronavirus 2 RNA Not detected Not-Detected [Presence] in Respiratory specimen by ELIJAH with probe detection (test code = 25564-2) TABATHA ELDER
[2022-06-20] MEDS ORDERED: D10W 250 ML IV ONE (12:14)
[2022-06-20 12:42] LABS: Absolute Lymphocytes (CBC) 0.6 K/uL (0.7-4.9); Hematocrit 17.8 % (36.0-45.0); Lymphocytes % 7.4 % (15.3-44.8); MCV 98.4 fL (80-100); MPV 9.9 fL (7.6-11.3); RBC Red Blood Cell Count 1.81 M/uL (3.86-4.86)
[2022-06-20] MEDS ORDERED: ONDANSETRON 4 MG/2 ML VIAL ONE ×2 (12:54→21:34)
[2022-06-20] MEDS ORDERED: FENTANYL CITR 100 MCG/2 ML ONE ×2 (12:54→23:20)
[2022-06-20] MEDS ORDERED: NA CHLORIDE 0.9% 500 ML ONE ×2 (12:54→16:28)
[2022-06-20 13:02] LABS: Magnesium 1.8 mg/dL (1.6-2.4); Potassium 3.9 mmol/L (3.5-5.1)
[2022-06-20 13:03] LABS: Troponin High Sensitivity 415.7 pg/mL (<58.9)
[2022-06-20 13:11] LABS: Blood Morphology Comment NOT SEEN (NOT SEEN); Platelet Estimate ADEQ
--- NOTE | 2022-06-20 13:24 | RAD REPORT ---
[facility]53 pm CLINICAL HISTORY: Pulmonary fibrosis COMPARISON: January 2022 and 2018 FINDINGS: Allowing for differences in arm respiration there probably has been no significant change in the bilateral pulmonary opacities probably pulmonary fibrosis Heart is normal size. Central venous catheter with its tip in the SVC
[2022-06-20 13:39] LABS: SARS-CoV-2 Antigen Rapid Res Negative (Negative)
--- NOTE | 2022-06-20 14:15 | ER ---
Nurse's Notes [facility] Name: Charissa Uribe Age: 62 yrs Sex: Female : 1960 Arrival Date: 06/20/2022 Time: 12:02 Bed 5 Private MD: Diagnosis: Anemia, unspecified;Hypoglycemia, unspecified;Pancreatic cancer Presentation: 06/20 12:04 Chief complaint: Patient states: AMS and weakness EMS states: Blood sugar 44, 2 oral ll1 glucose doses given en route. BP low 71/45, HR 76, no fever. Coronavirus screen: Vaccine status: Patient reports receiving the 2nd dose of the covid vaccine. Client denies travel out of the [place] in the last 14 days. At this time, the client does not indicate any symptoms associated with coronavirus-19. Ebola Screen: Patient denies travel to an Ebola-affected area in the 21 days before illness onset. Initial Sepsis Screen: Does the patient meet any 2 criteria? Altered Mental Status. HR > 90 bpm. Does the patient have a suspected source of infection? No. Patient's initial sepsis screen is negative. Risk Assessment: Do you want to hurt yourself or someone else? Patient reports no desire to harm self or others. Onset of symptoms was June 20, 2022. 12:04 Method Of Arrival: EMS ll1 12:04 Acuity: LUDIVINA 2 ll1 Triage Assessment: 12:08 General: Appears uncomfortable, ill, Behavior is calm, cooperative, appropriate for ll1 age. Neuro: Reports dizziness, weakness. Cardiovascular: Reports fatigue. 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 - Social history:: Smoking status: Patient denies any tobacco usage or history of. Screenin:06 [facility] ED Fall Risk Assessment (Adult) Impaired Gait Yes (1 pt) Mobility Assist ll1 Device Used Yes (1 pt) Score/Fall Risk Level 0 - 2 = Low Risk Oriented to surroundings, Maintained a safe environment, Educated pt \T\ family on fall prevention, incl call for assistance when getting out of bed, Hourly rounding (assess needs \T\ fall precautionary measures) done. Abuse screen: Denies threats or abuse. Nutritional screening: No deficits noted. Tuberculosis screening: No symptoms or risk factors identified. Assessment: 13:06 Reassessment: No changes from previously documented assessment. Patient and/or family ll1 updated on plan of care and expected duration. Pain level reassessed. Patient is alert, oriented x 3, equal unlabored respirations, skin warm/dry/pink. 13:35 Reassessment: No changes from previously documented assessment. Patient and/or family ll1 updated on plan of care and expected duration. Pain level reassessed. 14:47 Reassessment: No changes from previously documented assessment. Patient and/or family ll1 updated on plan of care and expected duration. Pain level reassessed. Patient is alert, oriented x 3, equal unlabored respirations, skin warm/dry/pink. fingerstick 129. 15:50 Reassessment: No changes from previously documented assessment. Patient and/or family ll1 updated on plan of care and expected duration. Pain level reassessed. Patient is alert, oriented x 3, equal unlabored respirations, skin warm/dry/pink. 16:32 Reassessment: No changes from previously documented assessment. See transfusion record ll1 for further details. 17:30 Reassessment: No changes from previously documented assessment. Patient and/or family ll1 updated on plan of care and expected duration. Pain level reassessed. Patient is alert, oriented x 3, equal unlabored respirations, skin warm/dry/pink. 18:30 Reassessment: No changes from previously documented assessment. Patient and/or family ll1 updated on plan of care and expected duration. Pain level reassessed. Patient is alert, oriented x 3, equal unlabored respirations, skin warm/dry/pink. 19:45 General: second unit of blood started, see paper charting for vitals . as6 19:45 General: Behavior is calm, cooperative. Pain: Complains of pain in chest Is chronic. as6 Respiratory: Reports shortness of breath. 20:00 General: pt short of breath when talking. pt AAOx4, updated pt and family on plan of as6 care. 21:50 General: pt anxious and increased work of breathing. provider notified, breathing tx as6 ordered . 22:00 General: second unit of blood complete. pt becoming lethargic and difficult to arouse. as6 Dr. Breen and RT at bedside. . 23:33 Respiratory: Ventilator assessment: ET Tube: 7.5 Ventilator Mode: Assist Control (AC) as6 Tidal Volume: 350 Respiratory Rate: 16 FiO2: 100%. PEEP: 5 HOB > 30 degrees. 06/21 03:00 General: blood coming out of OGT, provider notified . as6 Vital Signs: 06/20 12:04 BP 72 / 42; Pulse 73; Resp 21; Temp 97.0(TE); Pulse Ox 100% ; ll1 12:23 Weight 41.73 kg; Height 5 ft. 2 in. (157.48 cm); hb 13:05 BP 89 / 56; Pulse 71; Resp 22; Pulse Ox 93% on 4 lpm NC; ll1 13:37 BP 115 / 70; Pulse 70; Resp 21; Pulse Ox 100% on 3 lpm NC; ll1 14:47 BP 105 / 66; Pulse 81; Pulse Ox 100% on 4 lpm NC; ll1 16:28 BP 89 / 62; Pulse 82; Resp 18; Temp 96.4; Pulse Ox 100% on R/A; ll1 17:32 BP 106 / 56; Pulse 81; Resp 19; Temp 98.5; Pulse Ox 100% ; ll1 19:45 BP 128 / 72; Pulse 87; Resp 28 S; Temp 98.0(O); Pulse Ox 97% on 2 lpm NC; as6 21:45 BP 139 / 79; Pulse 100; Resp 26 S; Pulse Ox 89% on 4 lpm NC; as6 22:00 BP 124 / 75; Pulse 100; Resp 21 S; Pulse Ox 89% on 4 lpm NC; as6 22:15 BP 132 / 71; Pulse 91; Resp 17 S; Pulse Ox 95% on 15% Non-rebreather mask; as6 22:30 BP 90 / 62; Pulse 93; Resp 16 A; Pulse Ox 100% on 100% FiO2 ETT vent; as6 22:45 BP 107 / 64; Pulse 91; Resp 14 A; Pulse Ox 100% on 100% FiO2 ETT vent; as6 23:00 BP 104 / 61; Pulse 89; Resp 16 A; Pulse Ox 100% on 100% FiO2 ETT vent; as6 23:30 BP 96 / 49; Pulse 88; Resp 17 A; Pulse Ox 100% on 100% FiO2 ETT vent; as6 06/21 00:00 BP 90 / 61; Pulse 85; Resp 16 A; Pulse Ox 99% on 100% FiO2 ETT vent; as6 00:30 BP 91 / 63; Pulse 82; Resp 16 A; Temp 99.2(A); Pulse Ox 98% on 100% FiO2 ETT vent; as6 01:00 BP 102 / 64; Pulse 84; Resp 16 S; Pulse Ox 99% on 100% FiO2 ETT vent; as6 01:30 BP 90 / 59; Pulse 81; Resp 16 A; Pulse Ox 97% on 50% FiO2 ETT vent; as6 02:00 BP 74 / 55; Pulse 78; Resp 16 A; Pulse Ox 99% on 50% FiO2 ETT vent; as6 02:39 BP 85 / 63; Pulse 76; Resp 16 A; Pulse Ox 99% on 50% FiO2 ETT vent; as6 03:25 BP 95 / 63; Pulse 80; Resp 16 A; Pulse Ox 100% on 50% FiO2 ETT vent; as6 06/20 12:23 Body Mass Index 16.83 (41.73 kg, 157.48 cm) hb ED Course: 06/20 12:02 Patient arrived in ED. iw 12:04 Blanca Herrera, RN is Primary Nurse. ll1 12:07 Triage completed. ll1 12:07 Arm band placed on Patient placed in an exam room, on a stretcher. ll1 12:11 Patient has correct armband on for positive identification. Bed in low position. Call mm9 light in reach. Side rails up X 1. Adult w/ patient. Warm blanket given. Client placed on continuous cardiac and pulse oximetry monitoring. NIBP monitoring applied. car greaser on. Pulse ox on. NIBP on. 12:16 Jag Scott MD is Attending Physician. kdr 12:24 EKG done. mm9 12:35 Missed attempt(s): 24 gauge in right antecubital area. hb 12:37 Missed attempt(s): 24 gauge in right forearm. hb 12:40 Missed attempt(s): 24 gauge in left hand. hb 12:49 Notified ED physician of a critical lab result(s). HGB 5.9, HCT 17.[address] cyndi Scott. 13:00 No provider procedures requiring assistance completed. Accessed Port-a-Cath. using ll1 accessed w/ # 20 Coburn needle, ,sterile technique, per hospital protocol. Clean \T\ dry. Dressing intact. Good blood return. Flushes easily. 13:06 initiated a transfer with Melissa from the [facility] at the request of the eb patient. 13:29 Basic Metabolic Panel Sent. mm9 13:29 CBC with Diff Sent. mm9 13:29 Magnesium Sent. mm9 13:29 Troponin HS Sent. mm9 13:29 EKG done, by ED staff, reviewed by Jag Scott MD. mm9 13:31 Type And Screen Sent. mm9 13:47 SARS RAPID Sent. mm9 15:50 Troponin High Sensitivity Sent. ll1 18:14 administrative approval given by Emeterio Sosa Rn/ patient has been accepted to [facility] 25 tower rm 2509/ Dr. Radha Harden has accepted the patient in transfer/ report to be called after the patient has received both units of blood to [phone]. 18:25 attempted to reintiate a transfer with Baldemar from the [facility] at the request of the patients family/ per Baldemar they still have to decline the patient in transfer/ they have no IMU beds available. 22:16 Attending Physician role handed off by Jag Scott MD rt 22:16 Erick Breen MD is Attending Physician. rt 22:26 Assisted provider with intubation using 7.5 mm ETT via oral route. ET tube secured at as6 20cm at the teeth. Set up intubation tray. Intubated by Erick Breen MD Placement verified by CO2 detector w/ + color change, auscultating bilateral breath sounds, CXR, Patient tolerated well. 22:31 NGT: inserted 18 Fr. other oral verified placement of air over stomach, verified return as6 of gastric contents, Placement verified by X-ray, Patient tolerated well. 22:[address] [facility] Transfer spoke with Abbie to inform her of the patient's changing mw2 status. She will look to see if they have a MICU bed and will call us back. 22:47 Alaniz cath inserted, using sterile technique, 16 Fr., by pa, balloon inflated, to ll3 gravity drainage, clamped. Patient tolerated well. 22:58 [facility] denied the transfer. mw2 23:04 Parth Gaitan FNP-C is [facility]. la1 23:07 initiated a transfer with Silvia from [facility]. mw2 23:19 initiated a transfer with Keyona from [facility]. mw2 23:27 [facility] denied due to capacity. 06/21 00:[address] Breen with Dr. Rodas from [facility]. mw2 01:18 administrative approval given by Silvia Evangelista/ patient has been accepted to [address] to 8 C bed 856/ Dr. Rodas accepted the patient in transfer/report to be called to [phone]. 02:40 Patient transferred, IV remains in place. as6 Administered Medications: 06/20 12:39 Drug: D10 in Water [4ml/kg] 250 ml Route: IVP; Site: Port-a-cath; 1 13:05 Follow up: Response: No adverse reaction 1 13:05 Drug: NS 0.9% 500 ml Route: IV; Rate: bolus; Site: Port-a-cath; 1 06/21 01:45 Follow up: Response: No adverse reaction; IV Status: Completed infusion; IV Intake: as6 500ml 06/20 13:05 Drug: fentaNYL (PF) 25 mcg {Note: RASS 0.} Route: IVP; Site: Port-a-cath; ll1 13:38 Follow up: Response: No adverse reaction; Pain is decreased; RASS: Alert and Calm (0) ll1 13:05 Drug: Zofran (Ondansetron) 4 mg Route: IVP; Site: Port-a-cath; ll1 13:38 Follow up: Response: No adverse reaction ll1 21:35 Drug: Zofran (Ondansetron) 4 mg Route: IVP; Site: Port-a-cath; pf1 06/21 01:45 Follow up: Response: No adverse reaction 6 06/20 21:54 Drug: DuoNeb (albuterol 2.5 mg, ipratropium 0.5 mg) (3:1) (2.5 mg - 0.5 mg) 3 ml Route: as6 Nebulizer; 06/21 01:46 Follow up: Response: No adverse reaction 6 06/20 22:25 Drug: Etomidate 15 mg Route: IVP; Site: Port-a-cath; as6 06/21 01:46 Follow up: Response: No adverse reaction as6 06/20 22:25 Drug: Rocuronium 75 mg Route: IVP; Site: Port-a-cath; as6 06/21 01:46 Follow up: Response: No adverse reaction as6 06/20 22:37 CANCELLED (Change in plan): Rocephin (cefTRIAXone) 2 grams IV at calculated rate once; rt Given slow IV push per pharmarcy instructions 23:27 Drug: SOLU-Medrol (methylPrednisoLONE) 125 mg Route: IVP; Site: Port-a-cath; 06/21 01:46 Follow up: Response: No adverse reaction 6 06/20 23:30 Drug: fentaNYL (PF) 25 mcg/kg/h {Note: starting rate at 25 mcg/hr.} Route: IV; Rate: as6 calculated rate; Site: Port-a-cath; 06/21 02:25 Follow up: Response: No adverse reaction; IV Status: Infusion continued upon transfer as6 02:21 Drug: Levophed (norepinephrine) 0.1 mcg/kg/min {Note: started at 5 per provider .} as6 Route: IV; Rate: calculated rate; Site: Port-a-cath; 02:26 Follow up: Response: No adverse reaction; IV Status: Infusion continued upon transfer as6 03:10 Drug: Tranexamic Acid 1000 mg Route: IV; Rate: calculated rate; Site: Port-a-cath; as6 03:24 Follow up: Response: No adverse reaction; IV Status: Completed infusion; IV Intake: as6 100ml 03:12 Drug: ProTONIX (pantoprazole) 80 mg Route: IVP; Site: Port-a-cath; as6 03:24 Follow up: Response: No adverse reaction as6 Medication: 06/20 18:59 VIS not applicable for this client. ll1 Point of Care Testing: Blood Glucose: 21:27 Blood Glucose: 109 mg/dL; as6 Ranges: Intake: 06/21 01:45 IV: 500ml; Total: 500ml. as6 03:24 IV: 100ml; Total: 600ml. as6 Output: 02:49 Urine: 200ml (Alaniz); Total: 200ml. as6 03:25 Gastric: 600ml (OGT); Total: 800ml. as6 Outcome: 06/20 14:15 ER care complete, transfer ordered by . kdr 06/21 02:39 Transferred by ground EMS to [facility], Transfer form as6 completed. X-rays sent w/ patient. critical Instructed on the need for transfer. 02:52 Patient left the ED. as6 03:27 Patient left the ED. as6 Signatures: Jag Scott MD MD kdr Lihca Oconnell, RN RN iw Parth Gaitan, BODY AND FENDER MECHANIC APPRENTICE-C BODY AND FENDER MECHANIC APPRENTICE-Cla1 Eugenia Jordan, RN RN Prem, MyKena mw2 Elaine Ricardo Lynsay RN RN ll1 Eduardo Fisher RN RN as6 Sergio Kelly, RN RN ll3 Kristin Morales RN RN kr3 Bruno, Radha 9 Erick Breen MD MD rt Sofia barber RN RN pf1 Corrections: (The following items were deleted from the chart) 06/20 12:08 12:04 BP 72 / 42; Pulse 73bpm; Resp 21bpm; ll1 ll1 12:40 12:04 BP 72 / 42; Pulse 73bpm; Resp 21bpm; Pulse Ox 100%; ll1 ll1 13:05 13:05 fentaNYL (PF) 25 mcg IVP in Port-a-cath ll1 ll1 06/21 00:10 06/20 19:45 BP 128 / 72; Pulse 87bpm; Resp 28bpm; Spontaneous; Pulse Ox 97% RA; Temp as6 98.0F Oral; as6
--- NOTE | 2022-06-20 14:15 | EDPHYS ---
Physician Documentation [facility] Name: Charissa Uribe Age: 62 yrs Sex: Female : 1960 Arrival Date: 06/20/2022 Time: 12:02 Bed 5 Private MD: ED Physician Erick Breen HPI: 06/20 18:00 This 62 yrs old Female presents to ER via EMS with complaints of Low Blood kdr Sugar. 18:02 Patient is brought to the ED via EMS. They were called because of her altered mental kdr status and weakness. A blood sugar was measured by EMS at 44 and 2 oral glucose doses were given. Patient was also noted to be hypotensive with blood pressure 71/45 and heart rate of 76. Patient has not had a fever prior to arrival. On initial presentation. The patient seems mildly uncomfortable and unsettled. She is communicating clearly and without issue. She states that she just does not feel well. I was able to access the [employer] computer system with the help of the hospitalist and we are able to determine that her most recent hemoglobin was 10.6 at the end of May.. Onset: The symptoms/episode began/occurred at an unknown time. Severity of symptoms: At their worst the symptoms were mild moderate just prior to arrival, in the emergency department the symptoms are unchanged. It is unknown whether or not the patient has had similar symptoms in the past. The patient has not recently seen a physician. 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 - Social history:: Smoking status: Patient denies any tobacco usage or history of. ROS: 18:02 Constitutional: Negative for fever, chills, and weight loss, she does feel generally kdr weak Eyes: Negative for injury, pain, redness, and discharge, ENT: Negative for injury, pain, and discharge, Neck: Negative for injury, pain, and swelling, Cardiovascular: Negative for chest pain, palpitations, and edema, Respiratory: Negative for shortness of breath, cough, wheezing, and pleuritic chest pain, Abdomen/GI: Negative for abdominal pain, nausea, vomiting, diarrhea, and constipation, Back: Negative for injury and pain, : Negative for injury, bleeding, discharge, and swelling, MS/Extremity: Negative for injury and deformity, Skin: Negative for injury, rash, and discoloration, Psych: Negative for depression, anxiety, suicide ideation, homicidal ideation, and hallucinations, Allergy/Immunology: Negative for hives, rash, and allergies, Hematologic/Lymphatic: Negative for swollen nodes, abnormal bleeding, and unusual bruising. 18:02 Neuro: Positive for altered mental status, weakness, Negative for headache, loss of consciousness, seizure activity, speech changes, syncope, near syncope. Exam: 13:18 ECG was reviewed by the Attending Physician. kdr 18:02 Constitutional: This is a well developed, well nourished patient who is awake, alert, kdr and in no acute distress. Head/Face: Normocephalic, atraumatic. Eyes: Pupils equal round and reactive to light, extra-ocular motions intact. Lids and lashes normal. Conjunctiva and sclera are non-icteric and not injected. Cornea within normal limits. Periorbital areas with no swelling, redness, or edema. Neck: Trachea midline, no thyromegaly or masses palpated, and no cervical lymphadenopathy. Supple, full range of motion without nuchal rigidity, or vertebral point tenderness. No Meningismus. Chest/axilla: Normal chest wall appearance and motion. Nontender with no deformity. No lesions are appreciated. Cardiovascular: Regular rate and rhythm with a normal S1 and S2. No gallops, murmurs, or rubs. Normal PMI, no JVD. No pulse deficits. Respiratory: Lungs have equal breath sounds bilaterally, clear to auscultation and percussion. No rales, rhonchi or wheezes noted. No increased work of breathing, no retractions or nasal flaring. Abdomen/GI: Soft, non-tender, with normal bowel sounds. No distension or tympany. No guarding or rebound. No evidence of tenderness throughout. Back: No spinal tenderness. No costovertebral tenderness. Full range of motion. Skin: Warm, dry with normal turgor. Normal color with no rashes, no lesions, and no evidence of cellulitis. MS/ Extremity: Pulses equal, no cyanosis. Neurovascular intact. Full, normal range of motion. Psych: Awake, alert, with orientation to person, place and time. Behavior, mood, and affect are within normal limits. 18:02 Neuro: Orientation: appropriate for stated age, Mentation: appropriate for stated age, Cranial nerves: no acute changes, Cerebellar function: Patient is too weak to be tested, Motor: moves all fours, Sensation: no obvious gross deficits. Vital Signs: 12:04 BP 72 / 42; Pulse 73; Resp 21; Temp 97.0(TE); Pulse Ox 100% ; ll1 12:23 Weight 41.73 kg; Height 5 ft. 2 in. (157.48 cm); hb 13:05 BP 89 / 56; Pulse 71; Resp 22; Pulse Ox 93% on 4 lpm NC; ll1 13:37 BP 115 / 70; Pulse 70; Resp 21; Pulse Ox 100% on 3 lpm NC; ll1 14:47 BP 105 / 66; Pulse 81; Pulse Ox 100% on 4 lpm NC; ll1 16:28 BP 89 / 62; Pulse 82; Resp 18; Temp 96.4; Pulse Ox 100% on R/A; ll1 17:32 BP 106 / 56; Pulse 81; Resp 19; Temp 98.5; Pulse Ox 100% ; ll1 19:45 BP 128 / 72; Pulse 87; Resp 28 S; Temp 98.0(O); Pulse Ox 97% on 2 lpm NC; as6 21:45 BP 139 / 79; Pulse 100; Resp 26 S; Pulse Ox 89% on 4 lpm NC; as6 22:00 BP 124 / 75; Pulse 100; Resp 21 S; Pulse Ox 89% on 4 lpm NC; as6 22:15 BP 132 / 71; Pulse 91; Resp 17 S; Pulse Ox 95% on 15% Non-rebreather mask; as6 22:30 BP 90 / 62; Pulse 93; Resp 16 A; Pulse Ox 100% on 100% FiO2 ETT vent; as6 22:45 BP 107 / 64; Pulse 91; Resp 14 A; Pulse Ox 100% on 100% FiO2 ETT vent; as6 23:00 BP 104 / 61; Pulse 89; Resp 16 A; Pulse Ox 100% on 100% FiO2 ETT vent; as6 23:30 BP 96 / 49; Pulse 88; Resp 17 A; Pulse Ox 100% on 100% FiO2 ETT vent; as6 06/21 00:00 BP 90 / 61; Pulse 85; Resp 16 A; Pulse Ox 99% on 100% FiO2 ETT vent; as6 00:30 BP 91 / 63; Pulse 82; Resp 16 A; Temp 99.2(A); Pulse Ox 98% on 100% FiO2 ETT vent; as6 01:00 BP 102 / 64; Pulse 84; Resp 16 S; Pulse Ox 99% on 100% FiO2 ETT vent; as6 01:30 BP 90 / 59; Pulse 81; Resp 16 A; Pulse Ox 97% on 50% FiO2 ETT vent; as6 02:00 BP 74 / 55; Pulse 78; Resp 16 A; Pulse Ox 99% on 50% FiO2 ETT vent; as6 02:39 BP 85 / 63; Pulse 76; Resp 16 A; Pulse Ox 99% on 50% FiO2 ETT vent; as6 03:25 BP 95 / 63; Pulse 80; Resp 16 A; Pulse Ox 100% on 50% FiO2 ETT vent; as6 06/20 12:23 Body Mass Index 16.83 (41.73 kg, 157.48 cm) hb Procedures: 06/20 22:49 Intubation: Ventilated with 100% NRB prior to procedure. O2 saturation prior to rt procedure was 99 %. Intubated orally using [place] scope with 7.5 mm ETT. was successful on first attempt. Ventilated with ventilator. Tube secured with ETT arias measured 20 cm at lip. Placement verified by CXR, CO2 detector with (+) color change, auscultating bilateral breath sounds, O2 saturation after procedure was 100 %. Tube readjusted after first x-ray. Patient tolerated well. MDM: 14:15 Patient medically screened. kdr 18:02 Data reviewed: vital signs, nurses notes, lab test result(s), radiologic studies. kdr 22:49 Differential Diagnosis Hypoglycemia, anemia, respiratory failure. Consideration of rt Admission/Observation. I considered the following discharge prescriptions or medication management in the emergency department Medications were administered in the Emergency Department. See MAR. Independent interpretation of the following test(s) in the Emergency Department X-Ray: My interpretation is ET tube low, appropriate placement after readjustment on my interpretation of the x-ray images. Historians other than the Patient: Daughter/Son: Affirms that patient would want to be intubated.. Care significantly affected by the following chronic conditions: Pancreatic cancer, pulmonary fibrosis. Counseling: I had a detailed discussion with the patient and/or guardian regarding: the historical points, exam findings, and any diagnostic results supporting the discharge/admit diagnosis, radiology results, the need to transfer to another facility. ED course: Patient declined rapidly in the ED, had worsening respiratory status, mental status, the decision was made to intubate the patient.. 06/20 12:17 Order name: Basic Metabolic Panel kdr 06/20 12:17 Order name: CBC with Diff kdr 06/20 12:17 Order name: Magnesium kdr 06/20 12:17 Order name: Troponin HS kdr 06/20 12:22 Order name: Glucose, Ancillary Testing; Complete Time: 12:34 EDMS 06/20 12:46 Order name: CBC with Automated Diff; Complete Time: 13:49 EDMS 06/20 12:49 Order name: Type And Screen kdr 06/20 13:04 Order name: Basic Metabolic Panel; Complete Time: 13:49 EDMS 06/20 13:04 Order name: Troponin High Sensitivity; Complete Time: 13:49 EDMS 06/20 13:04 Order name: Magnesium; Complete Time: 13:49 EDMS 06/20 13:11 Order name: Manual Differential; Complete Time: 13:49 EDMS 06/20 13:17 Order name: SARS RAPID hb 06/20 13:39 Order name: SARS-COV-2 Antigen Rapid; Complete Time: 13:49 EDMS 06/20 12:17 Order name: XRAY Chest (1 view) kdr 06/20 13:24 Order name: RAD; Complete Time: 13:49 EDMS 06/20 14:59 Order name: Glucose, Ancillary Testing; Complete Time: 16:09 EDMS 06/20 15:04 Order name: Troponin High Sensitivity kdr 06/20 15:53 Order name: Type and Screen EDMS 06/20 16:11 Order name: Troponin High Sensitivity; Complete Time: 18:25 EDMS 06/20 18:46 Order name: Glucose, Ancillary Testing; Complete Time: 20:00 EDMS 06/20 21:39 Order name: Glucose, Ancillary Testing; Complete Time: 22:14 EDMS 06/20 21:49 Order name: ABG rt 06/20 22:28 Order name: XRAY Chest (1 view) bb 06/20 22:38 Order name: Chest Single View XRAY rt 06/20 23:58 Order name: Transfusion Reaction EDMS 06/21 00:36 Order name: ABG Arterial Blood Gas; Complete Time: 02:17 EDMS 06/21 00:39 Order name: ABG Arterial Blood Gas; Complete Time: 02:17 EDMS 06/20 12:17 Order name: EKG; Complete Time: 12:18 kdr 06/20 12:17 Order name: Cardiac monitoring; Complete Time: 12:17 kdr 06/20 12:17 Order name: EKG - Nurse/Tech; Complete Time: 12:23 kdr 06/20 12:17 Order name: IV Saline Lock; Complete Time: 12:39 kdr 06/20 12:17 Order name: Labs collected and sent; Complete Time: 12:39 kdr 06/20 12:17 Order name: O2 Per Protocol; Complete Time: 12:17 kdr 06/20 12:17 Order name: O2 Sat Monitoring; Complete Time: 12:17 kdr 06/20 13:40 Order name: Labs - recollect needed: recollect type and screen/ incorrectly labeled; eb Complete Time: 14:39 EC:18 Rate is 71 beats/min. Rhythm is regular, Sinus Rhythm with No ectopy. QRS Kemp is kdr Normal. MS interval is normal. QRS interval is normal. QT interval is normal. Clinical impression: NSR w/ Non-specific ST/T Changes. Administered Medications: 12:39 Drug: D10 in Water [4ml/kg] 250 ml Route: IVP; Site: Port-a-cath; 1 13:05 Follow up: Response: No adverse reaction ll1 13:05 Drug: NS 0.9% 500 ml Route: IV; Rate: bolus; Site: Port-a-cath; 1 06/21 01:45 Follow up: Response: No adverse reaction; IV Status: Completed infusion; IV Intake: as6 500ml 06/20 13:05 Drug: fentaNYL (PF) 25 mcg {Note: RASS 0.} Route: IVP; Site: Port-a-cath; 1 13:38 Follow up: Response: No adverse reaction; Pain is decreased; RASS: Alert and Calm (0) ll1 13:05 Drug: Zofran (Ondansetron) 4 mg Route: IVP; Site: Port-a-cath; 1 13:38 Follow up: Response: No adverse reaction ll1 21:35 Drug: Zofran (Ondansetron) 4 mg Route: IVP; Site: Port-a-cath; pf1 06/21 01:45 Follow up: Response: No adverse reaction 06/20 21:54 Drug: DuoNeb (albuterol 2.5 mg, ipratropium 0.5 mg) (3:1) (2.5 mg - 0.5 mg) 3 ml Route: as6 Nebulizer; 06/21 01:46 Follow up: Response: No adverse reaction 06/20 22:25 Drug: Etomidate 15 mg Route: IVP; Site: Port-a-cath; 06/21 01:46 Follow up: Response: No adverse reaction 06/20 22:25 Drug: Rocuronium 75 mg Route: IVP; Site: Port-a-cath; 06/21 01:46 Follow up: Response: No adverse reaction 06/20 22:37 CANCELLED (Change in plan): Rocephin (cefTRIAXone) 2 grams IV at calculated rate once; rt Given slow IV push per pharmarcy instructions 23:27 Drug: SOLU-Medrol (methylPrednisoLONE) 125 mg Route: IVP; Site: Port-a-cath; 06/21 01:46 Follow up: Response: No adverse reaction 06/20 23:30 Drug: fentaNYL (PF) 25 mcg/kg/h {Note: starting rate at 25 mcg/hr.} Route: IV; Rate: as6 calculated rate; Site: Port-a-cath; 06/21 02:25 Follow up: Response: No adverse reaction; IV Status: Infusion continued upon transfer as6 02:21 Drug: Levophed (norepinephrine) 0.1 mcg/kg/min {Note: started at 5 per provider .} as6 Route: IV; Rate: calculated rate; Site: Port-a-cath; 02:26 Follow up: Response: No adverse reaction; IV Status: Infusion continued upon transfer as6 03:10 Drug: Tranexamic Acid 1000 mg Route: IV; Rate: calculated rate; Site: Port-a-cath; as6 03:24 Follow up: Response: No adverse reaction; IV Status: Completed infusion; IV Intake: as6 100ml 03:12 Drug: ProTONIX (pantoprazole) 80 mg Route: IVP; Site: Port-a-cath; as6 03:24 Follow up: Response: No adverse reaction as6 Point of Care Testing: Blood Glucose: 06/20 21:27 Blood Glucose: 109 mg/dL; as6 Ranges: Critical Glucose Levels:Adult <50 mg/dl or >400 mg/dl <40 mg/dl or >180 mg/dl Disposition Summary: 06/20/22 14:15 Transfer Ordered Reason: Higher level of care kdr Condition: Serious kdr Problem: new kdr Symptoms: have improved kdr Transfer Location: [facility](06/21/22 00:04) rt Accepting Physician: vania(06/21/22 03:27) as6 Diagnosis - Anemia, unspecified kdr - Hypoglycemia, unspecified kdr - Pancreatic cancer kdr Forms: - Medication Reconciliation Form kdr - SBAR form kdr Critical care time excluding procedures: 06/21 00:23 Critical care time: Bedside Care: 40 minutes, Consultation: 15 minutes. Total time: 55 rt minutes Signatures: Dispatcher [employer] EDJag Bruner MD MD kdr Elaine Ricardo Lynsay RN RN ll1 Eduardo Fisher RN RN as6 Erick Breen MD MD rt Sofia barber, RN RN pf1 Corrections: (The following items were deleted from the chart) 06/20 15:25 14:15 Accepting kdr kdr 22:37 22:37 Rocephin (cefTRIAXone) 2 grams IV at calculated rate once; Given slow IV push per rt pharmarcy instructions ordered. rt 06/21 00:04 06/20 14:15 [facility] kdr rt 06/21 00:04 06/20 15:25 Fina kdr rt 06/21 02:52 00:04 caro rt as6 03:27 02:52 vania as6 as6
[2022-06-20] MEDS ORDERED: NA CHLORIDE 0.9% 250 ML ONE (19:31)
[2022-06-20] MEDS ORDERED: IPRATROPIUM BROM 0.5MG/2.5ML ONE (21:56)
[2022-06-20] MEDS ORDERED: ALBUTEROL 2.5 MG/3 ML NEB SOL ONE (21:56)
[2022-06-20] MEDS ORDERED: NA CHLORIDE 0.9% 0 ML ONE (22:15)
[2022-06-20] MEDS ORDERED: RSI MEDICATION KIT IV ONE (22:16)
[2022-06-20] MEDS ORDERED: METHYLPREDNISOLONE 125 MG INJ ONE (23:19)
[2022-06-20] MEDS ORDERED: NA CHLORIDE 0.9% 50 ML ONE (23:21)
[2022-06-21 00:34] LABS: Arterial Blood Carboxyhemoglob 0.6 % (0-1.5); Blood Gas Oxyhemoglobin 78.9 % (94-97); Blood O2 Saturation 80.6 % (92-98.5)
[2022-06-21 00:38] LABS: Arterial Blood Carboxyhemoglob 0.8 % (0-1.5); Blood Gas Oxyhemoglobin 96.4 % (94-97); Blood O2 Saturation 98.8 % (92-98.5)
[2022-06-21] MEDS ORDERED: NOREPINEPHRINE BITARTRATE/D5W 4 MG/250 ML BAG IV ONE (02:22)
[2022-06-21] MEDS ORDERED: PANTOPRAZOLE 40 MG INJ ONE (03:06)
[2022-06-21] MEDS ORDERED: TRANEXAMIC ACID 1,000 MG/10 ML VIAL IV ONE (03:08)
[2022-06-21] MEDS ORDERED: NA CHLORIDE 0.9% 100 ML ONE (03:11)
[2022-06-21 03:16] VITALS: TEMP 99.2
[2022-06-21 04:58] VITALS: BP 95/63; O2SAT 100
--- NOTE | 2022-06-21 12:37 | EKG ---
Test Date: 2022-06-20 Test Time: 12:43:55 [place]: POPPY MEASUREMENT RESULTS: Intervals: Rate: 71 ME: 126 QRSD: 74 QT: 424 QTc: 460 [place]: P: 21 ME: 126 QRS: 56 T: 74 INTERPRETIVE STATEMENTS: Normal sinus rhythm Normal ECG Compared to ECG 07/28/2014 11:45:31 Sinus tachycardia no longer present Electronically Signed On 06-21-22 12:35:34 ACTIVITY THERAPIST by Toño Rios
--- NOTE | 2022-06-21 20:19 | RAD REPORT ---
EXAM DESCRIPTION: RAD - Chest Single View - 06/20/2022 10:45 pm CLINICAL HISTORY: 62 years Female, Post intubation TECHNIQUE: 1 view (Single frontal view of the chest) COMPARISON: None. FINDINGS: Rotated shallow inspiratory effort. LINES AND TUBES: ET tube is at the level of the jose and should be pulled back by 2 cm. Nasogastri c tube in satisfactory position within the stomach. Right-sided Mediport catheter. CARDIOVASCULAR STRUCTURES: Normal heart size. LUNGS: Moderate to severe diffuse interstitial and alveolar parenchymal opacities compatible with ed truman/ARDS plus or minus infection. Query left upper lobe 6.0 cm round masslike opacity versus artifact ual as on subsequent chest x-ray performed 6 minutes later does not have the same masslike appearance .. Multiple surgical clips projecting over the mediastinum PLEURA: Small bilateral pleural effusions. No pneumothorax. BONES: No acute osseous abnormality of the thorax. IMPRESSION: 1. ET tube is at the level of the jose and should be pulled back by 2 cm. NG tube in satisfactory position. 2. Moderate to severe diffuse interstitial and alveolar parenchymal opacities compatible with edema /ARDS plus or minus infection. 3. Left upper lobe 6.0 cm round masslike opacity versus artifactual as on subsequent chest x-ray pe rformed 6 minutes later does not have the same masslike appearance. Nevertheless, follow-up CT chest is recommended. Electronically signed by: Aaron Neville MD 06/21/2022 12:37 AM SKILL LABOR Due to temporary technical issues with the PACS/Fluency reporting system, reports are being signed by the in house radiologists without review as a courtesy to insure prompt reporting. The interpreting radiologist is fully responsible for the content of the report.
--- NOTE | 2022-06-21 20:21 | RAD REPORT ---
EXAM DESCRIPTION: RAD - Chest Single View - 06/20/2022 10:45 pm CLINICAL HISTORY: 62 years Female, Tube readjust TECHNIQUE: 1 view (Single frontal view of the chest) COMPARISON: Chest x-ray performed 6 minutes earlier FINDINGS: LINES AND TUBES: Interval adjustment of ET tube which is 1.0 cm above the jose, further pullback by 1.0 cm is recommended. NG tube in satisfactory position. Right-sided Mediport catheter. CARDIOVASCULAR STRUCTURES: Normal heart size. LUNGS: No change of several moderate to severe diffuse parenchymal opacities. Surgical clips proje cting over the mediastinum. PLEURA: Small bilateral pleural effusions. No pneumothorax. BONES: No acute osseous abnormality of the thorax. IMPRESSION: 1. Interval pullback of ET tube now 1.0 cm above the jose, further pullback by 1.0 c m is recommended. 2. No significant interval change of cardiopulmonary status. Electronically signed by: Aaron Neville MD 06/21/2022 12:40 AM STUDY COORDINATOR Due to temporary technical issues with the PACS/Fluency reporting system, reports are being signed by the in house radiologists without review as a courtesy to insure prompt reporting. The interpreting radiologist is fully responsible for the content of the report.
== END 2022-06-21 03:27 | disposition short-term general hospital (02) ==
LOC: ER 11:49
PROC: 30233N1 Transfusion of Nonautologous Red Blood Cells into Peripheral Vein, Percutaneous Approach (ICD-10-PCS; principal; 2022-06-21)
PROC: 0BH17EZ Insertion of Endotracheal Airway into Trachea, Via Natural or Artificial Opening (ICD-10-PCS; 2022-06-21)
PROC: 5A1935Z Respiratory Ventilation, Less than 24 Consecutive Hours (ICD-10-PCS; 2022-06-21)
DX: D64.9 Anemia, unspecified (principal); E16.2 Hypoglycemia, unspecified; C25.9 Malignant neoplasm of pancreas, unspecified; Z20.822 Contact with and (suspected) exposure to COVID-19; Z88.0 Allergy status to penicillin
CPT/HCPCS: 96365; 96361; 93005; 85025; 80048; 36415; 86900; 83735; 86850; 86901; 82947 ×4; 84484 ×2; 71045 ×3; 94002 ×2; 94640; 82805 ×2; 31500 ×2; 51702; 96375; 99285; 96366; 87811; 36430; J7613; J7644; C9113; J3010 ×2; P9016 ×2; J7050; J7040 ×2; J2930; J2405 ×2; J2704; J7030